=== PATIENT | male | born 1940 | race Caucasian/White ===

== ENCOUNTER → 2016-10-22 | Day surgery (SDC) | payer MEDICARE, OTHER ==
[~2016-10-22] MED LIST: ALPRAZolam 0.25 MG TAB PO PRN; ALPRAZolam 0.5 MG TAB PO PRN; ASPIRIN 325 MG TAB PO STA; ATORVASTATIN 80 MG TAB PO STA; HYDROcodone/APAP 7.5-325MG 1 EACH TAB PO PRN; IOHEXOL 350 MG/ML 100 ML BOTTLE INJ ONE; LIDOCAINE 2% INJ 20 MG/ML (20 ML MDV) ONE; LIDOCAINE 2% INJ 20 MG/ML SQ ONE; MIDAZOLAM 2 MG/2 ML VIAL IV ONE; MIDAZOLAM 2 MG/2 ML VIAL ONE; NITROGLYCERIN SL TABS 0.4 MG TAB SUBLINGUAL PRN; SODIUM CHLORIDE 0.9% 1,000 ML IV ONE; SODIUM CHLORIDE 0.9% 1,000 ML IV SCH; SODIUM CHLORIDE 0.9% 1,000 ML in EMPTY BAG 1 BAG IV ONE; diphenhydrAMINE 50 MG/ML 1 ML VIAL IVP ONE; diphenhydrAMINE 50 MG/ML 1 ML VIAL ONE; fentaNYL (PF) 50 MCG/ML 2 ML AMP IV ONE
[2016-10-22 08:16] VITALS: RESP 18
[2016-10-22 08:44] LABS: Basophils % (A) 1 %; CH 31.5; CHCM 33.5; Eosinophils # (A) 0.1 k/uL (0-0.7); Eosinophils % (A) 2 %; HCT 39.9 % (39.0-53.0); HDW 3.09; HGB 12.8 gm/dL (13.0-17.5); Luc # (Auto) 0.26; Luc % (Auto) 4; Lymphocytes # (A) 0.8 k/uL (1.0-4.8); Lymphocytes % (A) 13 %; MCH 30.4 pg (25.0-35.0); MCHC 32.1 g/dL (31.0-37.0); MCV 94.7 fL (80.0-100.0); Mean Platelet Volume 7.6; Monocytes # (A) 0.6 k/uL (0-1.0); Monocytes % (A) 10 %; Neutrophils # (A) 4.6 k/uL (1.3-7.7); Neutrophils % (A) 71 %; RBC 4.21 m/uL (4.30-5.90); RDW 14.2 % (11.5-15.5); WBC 6.4 k/uL (3.8-10.6); WBC (Perox) 6.78
[2016-10-22 08:48] LABS: Anion Gap 10 mmol/L; Blood Urea Nitrogen 23 mg/dL (9-20); Calcium 9.2 mg/dL (8.4-10.2); Carbon Dioxide 33 mmol/L (22-30); Chloride 94 mmol/L (98-107); Glucose 112 mg/dL (74-99); Non-African American GFR(MDRD) 58 (>60 ml/min/1.73 sqM); Potassium 3.6 mmol/L (3.5-5.1); Sodium 137 mmol/L (137-145)
[2016-10-22 08:53] LABS: INR 1.1 (<1.2); Prothrombin Time 11.4 sec (9.0-12.0)
[2016-10-22] MEDS: BENZOCAINE SPRAY 100 APPLIC/CAN MUCOUS MEM ONE ×3 (09:01→09:10)
--- NOTE | 2016-10-22 09:44 | P.TEE ---
Indications for Procedure(s): Mitral regurgitation. Preoperative Diagnosis: Postoperative Diagnosis: Procedure(s) Performed: Anesthesia: local Description of Procedure(s): Patient was given intravenous sedation with Versed and fentanyl and transesophageal echocardiogram was performed without any complications. Left ventricular chamber is moderately dilated with evidence of global hypokinesia with estimated ejection fraction in the range of 30-35%. Atrium is moderately enlarged right atrium is moderately enlarged. Y morphology is normal and it is structurally normal there is no evidence of flow prolapsed mitral valve. Is evidence of moderate to severe mitral regurgitation which is central in origin is evidence of for reversal of flow in the pulmonary vein. Is no evidence of thrombus in left atrium or atrial appendage. There is a moderate degree of tricuspid regurgitation noted. Intra-atrial septum is intact there is no evidence of PFO by saline contrast study. Descending thoracic aorta is normal. Final impression there is evidence of moderate to severe mitral regurgitation which is central in origin. Is a reversal of flow in the pulmonary vein. Mitral valve is structurally normal suggestive functional mitral regurgitation secondary to dilated cardiomyopathy. There is no evidence of thrombus in left atrium or atrial appendage.
[2016-10-22 12:22] LABS: Site PA
[2016-10-22 12:23] LABS: Site FA
[2016-10-22 12:23] LABS: Site RA
[2016-10-22 13:01] VITALS: TEMP 98.2
[2016-10-22 18:39] VITALS: BP 104/58; PULSE 58
--- NOTE | 2016-10-23 08:47 | CC ---
DATE OF SERVICE: 10/22/2016 PROCEDURE: Right and left heart catheterization and coronary angiography. Performed by Dr. Araceli Leyva. CLINICAL INFORMATION: Mr. Chito Rouse is a 76-year-old gentleman with a chronic persistent atrial fibrillation, hypertension, hypercholesterolemia, known CAD with a previous stenting of RCA and circumflex performed in 2003. Because of increasing symptoms of shortness of breath and known central mitral regurgitation, he was advised transesophageal echo and right and left heart catheterization and brought in for the procedure electively. Risk, benefits, options and rationale were explained to the patient and family. PROCEDURE NOTE: Under local anesthesia and strict aseptic precautions, a 6 Norwegian introducer was placed in the right femoral artery and * Norwegian introducer in the right femoral vein. Using a flow directed balloon tip catheter with the O21 wire, I was able to perform a right heart catheterization. Thermodilution, cardiac output was obtained and saturations were obtained. Subsequently, using standard Sean catheters I performed coronary angiography and a Pigtail catheter was used to check LV pressure, but I did not perform LV gram. The catheters were taken out and the femoral artery sheath was taken out and angiocele device used to secure venostasis. Venous sheath as taken out and manual compression used to secure hemostasis. Patient was sent to the room in a stable condition. CARDIAC CATHETERIZATION FINDINGS: The right atrial pressure was 9 mmHg. Right ventricular pressure was 50/9, pulmonary arterial pressure was 50/17 with a mean of 28. The pulmonary capillary wedge pressure was about 16 with a V-wave of 32. The thermodilution cardiac out was about 5 L and Deanna cardiac output was 4.8 L. The pulmonary arterial saturation was about 64% and femoral arterial saturation was 95%. There was no oxygen stepup. The patient had moderate pulmonary hypertension. The left ventricular end diastolic pressure 18 mmHg and there no gradient across the aortic valve. CORONARY ANGIOGRAPHY FINDINGS: LEFT MAIN CORONARY ARTERY: Short, patent , disease-free vessel that bifurcates into LAD and circumflex. LEFT ANTERIOR DESCENDING CORONARY ARTERY: Good caliber vessel, extends along the anterior wall, gives off a large septal ( ) and a very large diagonal branch, both of which are free of significant disease. The distal one-third of the LAD has mild diffuse disease throughout. No significant disease in the LAD system is noted. LEFT POSTERIOR CIRCUMFLEX CORONARY ARTERY: Nondominant vessel, has a proximal circumflex anterior before widely patent. No significant stenosis. Gives of a left atrial circumflex branch and an AV groove branch. Minor irregularities. No significant disease in the circumflex system. RIGHT CORONARY ARTERY: This is a technically a dominant vessel which was stented before in the midportion. The stented segment is widely patent distally. It bifurcates into a large PDA and PLV, both of which supplies a sizeable amount of myocardium. There is no significant disease in the dominant RCA which is free of any significant disease and the stent segment is widely patent. The branches are free of significant disease. LEFT VENTRICULOGRAM: This was not performed. FINAL IMPRESSION: This patient has moderate pulmonary hypertension. There is no oxygen step up. Thermodilution and fixed cardiac output is about 5 L. He has a right dominant system and the previously stented right coronary artery and circumflex are widely patent without significant obstructive coronary artery disease. RECOMMENDATIONS: I will review of the transesophageal echo information and then make a definite decision. But for now, medical therapy is advised. Patient will be discharged later on today if he remains stable. Moderate conscious sedation was provided for a total duration of nearly 45 minutes using Versed and Benadryl. Patient tolerated the procedure well without complications. ARTEMIO
== END ==
LOC: CATHCVL 07:48
PROVIDERS: ATTEND Internal Medicine Interventional Cardiology
DX: I25.110 Atherosclerotic heart disease of native coronary artery with unstable angina pectoris (principal); I11.0 Hypertensive heart disease with heart failure; I50.42 Chronic combined systolic (congestive) and diastolic (congestive) heart failure; Z87.891 Personal history of nicotine dependence; I27.2 Other secondary pulmonary hypertension; I08.1 Rheumatic disorders of both mitral and tricuspid valves; I51.7 Cardiomegaly; I42.0 Dilated cardiomyopathy; I49.5 Sick sinus syndrome; I48.2 Chronic atrial fibrillation; Z79.01 Long term (current) use of anticoagulants; Z95.5 Presence of coronary angioplasty implant and graft; D50.9 Iron deficiency anemia, unspecified; E78.00 Pure hypercholesterolemia, unspecified; E78.5 Hyperlipidemia, unspecified; Z79.82 Long term (current) use of aspirin; Z79.899 Other long term (current) drug therapy
CPT/HCPCS: 93312; 93320; 93325; 93460; 80048; 85018; 82810; 85025; 85610; C1760; C1769 ×3; C1894 ×2; J2001; J2250; J1200; Q9967; J3010

== ENCOUNTER 2019-08-17 21:33 | Inpatient (IN) | payer MEDICARE, OTHER ==
[2019-08-18 05:36] LABS: HCT 20.2 % (39.0-53.0); MCH 32.7 pg (25.0-35.0); MCHC 34.6 g/dL (31.0-37.0); MCV 94.4 fL (80.0-100.0); Mean Platelet Volume 8.1; Platelet Count 295 k/uL (150-450); RBC 2.14 m/uL (4.30-5.90); RDW 14.8 % (11.5-15.5); WBC 13.3 k/uL (3.8-10.6)
[2019-08-18 05:39] LABS: ALT 16 U/L (4-49); AST 22 U/L (17-59); African American GFR (CKD) >90 (>60 ml/min/1.73 sqM); Albumin 2.7 g/dL (3.5-5.0); Alkaline Phosphatase 38 U/L (38-126); Anion Gap 6 mmol/L; Blood Urea Nitrogen 47 mg/dL (9-20); Carbon Dioxide 27 mmol/L (22-30); Chloride 99 mmol/L (98-107); Glucose 160 mg/dL (74-99); Non-African American GFR(CKD) 79 (>60 ml/min/1.73 sqM); Potassium 3.8 mmol/L (3.5-5.1); Sodium 132 mmol/L (137-145); Total Bilirubin 0.2 mg/dL (0.2-1.3); Total Protein 4.6 g/dL (6.3-8.2)
[2019-08-18 05:42] LABS: INR 3.3 (<1.2); Partial Thromboplastin Time 31.8 sec (22.0-30.0); Prothrombin Time 32.5 sec (9.0-12.0)
[2019-08-18] MEDS ORDERED: ACETAMINOPHEN TAB 325 MG TAB PO PRN (06:42)
--- NOTE | 2019-08-18 08:38 | P.CRDCN ---
History of Present Illness Consult date: 08/18/19 Consult reason: sycope Chief complaint: syncope History of present illness: this is a pleasant 79-year-old gentleman who follows regularly with Dr. Fredo Lyeva in the office. He has a known history of coronary artery disease with multivessel PCI, chronic atrial fibrillation, moderate to severe mitral regurgitation, moderate pulmonary hypertension, hypertension, hyperlipidemia, his most recent cardiac catheterization was performed in October 2016 at which time he underwent a right and left heart catheterization, showed moderate pulmonary hypertension. He was a transfer from [facility], he present ed to the hospital there with this episode of near syncope. He states that he was walking from the bedroom, he takes his Coumadin at 6 PM, felt very dizzy and lightheaded, diaphoretic, and went down to the ground. He does not feel that he lost consciousness at all. He states that he was able to get up off of the ground and make a phone call to EMS. He denies having any chest discomfort but he does state that recently he's been more short of breath than usual and prior to this episode he did noticed himself to be short of breath. He states that when he gets up and walks or goes to the bathroom he has a very hard time breathing, he denies any palpitations. Laboratory data at [facility] has been reviewed, magnesium was 1.7, sodium 138, potassium 4.1, BUN 39, creatinine 1.0, troponin 0.0-7, EKG was performed at [facility], showed atrial fibrillation with a controlled ventricular response. A chest x-ray was also performed there which did not reveal any evidence of acute cardiopulmonary disease. At the time of my examination this morning, patient is complaining of some back discomfort that starts at his neck, goes down to his lower back area. He states that he has a history of rheumatoid arthritis and chronically has back pain. He also has a productive cough of clear sputum. Prior history of smoking.I pressure this morning 105/70 with a heart rate in the 80s, 100% on 2 L of oxygen.White blood cell count 13.3, hemoglobin 7.0, INR 3.3. Stool for occult blood is positive. Sodium 132, potassium 3.8, BUN 47, creatinine 0.9. Troponin 0.015. Patient's hemoglobin on his last admission here in 2017 was 12.8. Past Medical History Past Medical History: Atrial Fibrillation, Asthma, Coronary Artery Disease (CAD), COPD, Hyperlipidemia, Hypertension, Myocardial Infarction ([place]), Osteoarthritis (OA), Prostate Disorder, Renal Disease, Skin Disorder Additional Past Medical History / Comment(s): psoriasis; shortness of breath with any strenuous activity; difficulty swallowing hx of foreign body removal from throat 4 times, "leaky heart valve"; stentsx2, bowel resection 30 years ago Last Myocardial Infarction Date:: 2003 History of Any Multi-Drug Resistant Organisms: None Reported Past Surgical History: Bowel Resection, Heart Catheterization With Stent, Hernia Repair, Orthopedic Surgery Additional Past Surgical History / Comment(s): ORIF of left forearm, portion of stomach removed in 1987 from an ulcer,EGD with dilatation. Bilateral hip replacements. Right Knee Past Anesthesia/Blood Transfusion Reactions: No Reported Reaction Date of Last Stent Placement:: 2003 Past Psychological History: No Psychological Hx Reported Smoking Status: Former smoker Past Alcohol Use History: None Reported Past Drug Use History: None Reported - Past Family History Mother Family Medical History: Coronary Artery Disease (CAD), Osteoarthritis (OA) Father Family Medical History: No Reported History Medications and Allergies Home Medications Medication Instructions Recorded Confirmed Type Aspirin 81 mg PO DAILY 07/31/14 08/18/19 History Baclofen [Lioresal] 10 mg PO BID 07/31/14 08/18/19 History Ferrous Sulfate [Feosol] 65 mg PO BID 07/31/14 08/18/19 History Furosemide [Lasix] 40 mg PO BID 07/31/14 08/18/19 History HYDROcodone/APAP 7.5-325MG [[place] 1 each PO Q6HR PRN 07/31/14 08/18/19 History 7.5-325] Lisinopril [Zestril] 2.5 mg PO HS 07/31/14 08/18/19 History Loratadine [Claritin] 10 mg PO DAILY 07/31/14 08/18/19 History Meclizine [Antivert] 1 tab PO BID PRN 07/31/14 08/18/19 History Metolazone [Zaroxolyn] 2.5 mg PO Q48H 07/31/14 08/18/19 History Nitroglycerin Sl Tabs [Nitrostat] 1 tab SUBLINGUAL ONCE PRN 07/31/14 08/18/19 History Potassium Chloride ER [K-Dur 20] 20 meq PO BID 07/31/14 08/18/19 History Pravastatin Sodium [Pravachol] 40 mg PO HS 07/31/14 08/18/19 History Tamsulosin [Flomax] 0.4 mg PO HS 07/31/14 08/18/19 History Warfarin Sodium [Coumadin] 6 mg PO SUTUTHSA 09/26/15 08/18/19 History Warfarin Sodium [Coumadin] 4 mg PO MOWEFR 10/16/16 08/18/19 History DULoxetine HCL [Cymbalta] 30 mg PO BID 08/18/19 08/18/19 History Gabapentin [Neurontin] 300 mg PO BID 08/18/19 08/18/19 History Hydrocodone/Acetaminophen [[place] 1 tab PO Q6HR PRN 08/18/19 08/18/19 History 7.5-325] Allergies Allergy/AdvReac Type Severity Reaction Status Date / Time metoclopramide HCl Allergy "I would Verified 10/22/16 08:02 [From Reglan] just sit and stare" Penicillins Allergy Rash/Hives Verified 10/22/16 08:02 Physical Exam Vitals: Vital Signs Temp Pulse Resp BP Pulse Ox 08/18/19 04:00 97.5 F L 87 18 105/70 100 08/18/19 01:44 97.3 F L 95 20 122/66 96 Intake and Output 08/17/19 08/18/19 08/18/19 22:59 06:59 14:59 Output Total 350 Balance -350 Output: Urine 350 Other: # Voids 2 # Bowel Movements 1 Weight 87.5 kg PHYSICAL EXAMINATION: GENERAL:79-year-old gentleman in no acute distress at the time of my examination HEENT: Head is atraumatic, normocephalic. Pupils equal, round. Sclera anicteric. Conjunctiva are clear. Mucous membranes of the mouth are moist. Neck is supple. There is no elevated jugular venous pressure.no carotid bruit is heard. HEART EXAMINATION: [Heart S1, S2 irregularly irregular a systolic murmur is heard.] CHEST EXAMINATION:[ Lungs are clear to auscultation and precussion. No chest wall tenderness is noted on palpation or with deep breathing.] ABDOMEN: [ Soft, nontender. Bowel sounds are heard. No organomegaly noted]. EXTREMITIES:[ 2+ peripheral pulses with trace to 1+ evidence of peripheral edema and no calf tenderness noted]. NEUROLOGIC [patient is awake, alert and oriented3.] . Results 08/18/19 05:03 08/18/19 05:03 Cardiac Enzymes 08/18/19 08/18/19 Range/Units 05:03 07:10 AST 22 (17-59) U/L Troponin I 0.015 (0.000-0.034) ng/mL Coagulation 08/18/19 Range/Units 05:03 PT 32.5 H (9.0-12.0) sec APTT 31.8 H (22.0-30.0) sec CBC 08/18/19 Range/Units 05:03 WBC 13.3 H (3.8-10.6) k/uL RBC 2.14 L (4.30-5.90) m/uL Hgb 7.0 L (13.0-17.5) gm/dL Hct 20.2 L (39.0-53.0) % Plt Count 295 (150-450) k/uL Comprehensive Metabolic Panel 08/18/19 Range/Units 05:03 Sodium 132 L (137-145) mmol/L Potassium 3.8 (3.5-5.1) mmol/L Chloride 99 (98-107) mmol/L Carbon Dioxide 27 (22-30) mmol/L BUN 47 H (9-20) mg/dL Creatinine 0.93 (0.66-1.25) mg/dL Glucose 160 H (74-99) mg/dL Calcium 8.0 L (8.4-10.2) mg/dL AST 22 (17-59) U/L ALT 16 (4-49) U/L Alkaline Phosphatase 38 (38-126) U/L Total Protein 4.6 L (6.3-8.2) g/dL Albumin 2.7 L (3.5-5.0) g/dL Current Medications Generic Name Dose Route Start Last Admin Trade Name Freq PRN Reason Stop Dose Admin Acetaminophen 650 mg 08/18/19 06:42 08/18/19 07:03 Tylenol Tab PO 650 mg Q6HR PRN Administration Fever and/ or Mild Pain Intake and Output 08/17/19 08/18/19 08/18/19 22:59 06:59 14:59 Output Total 350 Balance -350 Output: Urine 350 Other: # Voids 2 # Bowel Movements 1 Weight 87.5 kg 08/18/19 05:03 08/18/19 05:03 EKG Interpretations (text) EKG shows atrial fibrillation with a controlled ventricular response Assessment and Plan Plan: assessment and plan #1 near syncope, rule out cardiac causes #2 chronic persistent atrial fibrillation, rate under adequate control, on Coumadin for anticoagulation, INR 3.3. #3 anemia, hemoglobin 7.0, stool for occult blood positive #4 hypertension #5 hyperlipidemia #6 coronary artery disease with history of multivessel PCI #7 moderate to severe mitral regurgitation #8 prior history of smoking Plan We will obtain an echocardiogram with Doppler study. Check orthostatic heart rate and blood pressure every shift. Watch for any tachycardia or bradycardia arrhythmias. Monitor the hemoglobin closely, check iron studies. Hold the Coumadin today. DNP note has been reviewed, I agree with a documented findings and plan of care. Patient was seen and examined.
[2019-08-18] MEDS ORDERED: NITROGLYCERIN SL TABS 0.4 MG TAB SUBLINGUAL PRN (10:12)
[2019-08-18] MEDS ORDERED: SODIUM CHLORIDE 0.9% 1,000 ML IV SCH (10:15)
[2019-08-18] MEDS: BACLOFEN 10 MG TAB PO SCH (10:46)
[2019-08-18] MEDS: HYDROcodone/APAP 7.5-325MG 1 EACH TAB PO PRN ×2 (10:46→18:53)
[2019-08-18] MEDS ORDERED: PHYTONADIONE ORAL 5 MG/5 ML ORAL.SYRG PO STA (10:59)
--- NOTE | 2019-08-18 11:18 | P.HPIM ---
History of Present Illness This is a pleasant 81-year-old male came in after a near syncopal episode found to be secondary to hypovolemia and the low blood pressure. Patient has.stools multiple about 8-10 yesterday and 8-10 today patient has elevated INR today's INR is around 3.3 I believe it was higher than that. Patient is feeling better today patient does have can start failure history with mitral regurgitation patient has EF of around 30-35% patient denied any fever chills patient feels tired doesn't feel well. Patient was started on Protonix. Patient felt that it diaphoretic lightheaded before his near syncope patient didn't actually have a s yncope. Patient had multiple episodes of dark stools along with the some blood in the stools. Patient had another GI bleed in the past and patient's INR is always fluctuating. Because of this reason patient probably would be a good fit candidate for Eliquis in spite of mitral regurgitation. Review of Systems REVIEW OF SYSTEMS: CONSTITUTIONAL: No fever. HEENT: No recent visual problems or hearing problems. Denied any sore throat. CARDIOVASCULAR: No chest pain, orthopnea, PND, no palpitations. PULMONARY: No shortness of breath, no cough, no hemoptysis. GASTROINTESTINAL: No diarrhea, no nausea, no vomiting, no abdominal pain. NEUROLOGICAL: No headaches, no weakness, no numbness. HEMATOLOGICAL: Denies any bleeding or petechiae. GENITOURINARY: Denies any burning micturition, frequency, or urgency. MUSCULOSKELETAL/RHEUMATOLOGICAL: Denies any joint pain, swelling, or any muscle pain. ENDOCRINE: Denies any polyuria or polydipsia. The rest of the 14-point review of systems is negative. Past Medical History Past Medical History: Atrial Fibrillation, Asthma, Coronary Artery Disease (CAD), COPD, Hyperlipidemia, Hypertension, Myocardial Infarction ([place]), Osteoarthritis (OA), Prostate Disorder, Renal Disease, Skin Disorder Additional Past Medical History / Comment(s): psoriasis; shortness of breath with any strenuous activity; difficulty swallowing hx of foreign body removal from throat 4 times, "leaky heart valve"; stentsx2, bowel resection 30 years ago Last Myocardial Infarction Date:: 2003 History of Any Multi-Drug Resistant Organisms: None Reported Past Surgical History: Bowel Resection, Heart Catheterization With Stent, Hernia Repair, Orthopedic Surgery Additional Past Surgical History / Comment(s): ORIF of left forearm, portion of stomach removed in 1987 from an ulcer,EGD with dilatation. Bilateral hip replacements. Right Knee Past Anesthesia/Blood Transfusion Reactions: No Reported Reaction Date of Last Stent Placement:: 2003 Past Psychological History: No Psychological Hx Reported Smoking Status: Former smoker Past Alcohol Use History: None Reported Past Drug Use History: None Reported - Past Family History Mother Family Medical History: Coronary Artery Disease (CAD), Osteoarthritis (OA) Father Family Medical History: No Reported History Medications and Allergies Home Medications Medication Instructions Recorded Confirmed Type Aspirin 81 mg PO DAILY 07/31/14 08/18/19 History Baclofen [Lioresal] 10 mg PO BID@0800,1200 07/31/14 08/18/19 History Ferrous Sulfate [Feosol] 65 mg PO BID 07/31/14 08/18/19 History Furosemide [Lasix] 40 mg PO MOWEFR@1200 07/31/14 08/18/19 History Lisinopril [Zestril] 2.5 mg PO HS 07/31/14 08/18/19 History Loratadine [Claritin] 10 mg PO DAILY 07/31/14 08/18/19 History Meclizine [Antivert] 1 tab PO TID PRN 07/31/14 08/18/19 History Metolazone [Zaroxolyn] 2.5 mg PO SUTUTHSA@1200 07/31/14 08/18/19 History Nitroglycerin Sl Tabs [Nitrostat] 1 tab SUBLINGUAL Q5M PRN 07/31/14 08/18/19 History Potassium Chloride ER [K-Dur 20] 20 meq PO BID 07/31/14 08/18/19 History Pravastatin Sodium [Pravachol] 40 mg PO HS 07/31/14 08/18/19 History Tamsulosin [Flomax] 0.4 mg PO HS 07/31/14 08/18/19 History Warfarin Sodium [Coumadin] 6 mg PO SUTUWETHSA 09/26/15 08/18/19 History Warfarin Sodium [Coumadin] 4 mg PO MOFR 10/16/16 08/18/19 History Cholecalciferol [Vitamin D3 (25 5,000 unit PO DAILY 08/18/19 08/18/19 History Mcg = 1000 Iu)] DULoxetine HCL [Cymbalta] 30 mg PO BID 08/18/19 08/18/19 History Furosemide [Lasix] 40 mg PO DAILY@0800 08/18/19 08/18/19 History Gabapentin [Neurontin] 300 mg PO BID 08/18/19 08/18/19 History Hydrocodone/Acetaminophen [[place] 1 tab PO Q8H PRN 08/18/19 08/18/19 History 7.5-325] Allergies Allergy/AdvReac Type Severity Reaction Status Date / Time metoclopramide HCl Allergy "I would Verified 08/18/19 09:25 [From Reglan] just sit and stare" Penicillins Allergy Rash/Hives Verified 08/18/19 09:25 Physical Exam Vitals: Vital Signs Temp Pulse Resp BP Pulse Ox 08/18/19 04:00 97.5 F L 87 18 105/70 100 08/18/19 01:44 97.3 F L 95 20 122/66 96 Intake and Output 08/17/19 08/18/19 08/18/19 22:59 06:59 14:59 Output Total 350 Balance -350 Output: Urine 350 Other: # Voids 2 # Bowel Movements 1 Weight 87.5 kg PHYSICAL EXAMINATION: GENERAL: The patient is alert and oriented x3, not in any acute distress. Well developed, well nourished. HEENT: Pupils are round and equally reacting to light. EOMI. No scleral icterus. Does have conjunctival pallor. Normocephalic, atraumatic. No pharyngeal erythema. No thyromegaly. CARDIOVASCULAR: S1 and S2 present. No murmurs, rubs, or gallops. PULMONARY: Chest is clear to auscultation, no wheezing or crackles. ABDOMEN: Soft, nontender, nondistended, normoactive bowel sounds. No palpable organomegaly. MUSCULOSKELETAL: No joint swelling or deformity. EXTREMITIES: No cyanosis, clubbing, or pedal edema. NEUROLOGICAL: Gross neurological examination did not reveal any focal deficits. SKIN: No rashes. Results CBC & Chem 7: 08/18/19 05:03 08/18/19 05:03 Labs: Abnormal Lab Results - Last 24 Hours (Table) 08/18/19 08/18/19 08/18/19 Range/Units 05:03 05:03 05:03 WBC 13.3 H (3.8-10.6) k/uL RBC 2.14 L (4.30-5.90) m/uL Hgb 7.0 L (13.0-17.5) gm/dL Hct 20.2 L (39.0-53.0) % PT 32.5 H (9.0-12.0) sec INR 3.3 H (<1.2) APTT 31.8 H (22.0-30.0) sec Sodium 132 L (137-145) mmol/L BUN 47 H (9-20) mg/dL Glucose 160 H (74-99) mg/dL Calcium 8.0 L (8.4-10.2) mg/dL Total Protein 4.6 L (6.3-8.2) g/dL Albumin 2.7 L (3.5-5.0) g/dL Crossmatch 08/18/19 Range/Units 07:10 WBC (3.8-10.6) k/uL RBC (4.30-5.90) m/uL Hgb (13.0-17.5) gm/dL Hct (39.0-53.0) % PT (9.0-12.0) sec INR (<1.2) APTT (22.0-30.0) sec Sodium (137-145) mmol/L BUN (9-20) mg/dL Glucose (74-99) mg/dL Calcium (8.4-10.2) mg/dL Total Protein (6.3-8.2) g/dL Albumin (3.5-5.0) g/dL Crossmatch See Detail Thrombosis Risk Factor Assmnt - Choose All That Apply Each Factor Represents 1 point: Swollen legs (current) Each Risk Factor Represents 3 Points: Age 75 years or older Other congenital or acquired thrombophilia - If yes, enter type in comment: No Thrombosis Risk Factor Assessment Total Risk Factor Score: 4 Thrombosis Risk Factor Assessment Level: Moderate Risk Assessment and Plan Plan: -Acute blood loss anemia from upper GI bleed: Patient's INR is elevated with patient will be given vitamin K, patient will be started on Protonix gastroenterology will evaluate the patient. Patient was transfused 1 unit of PRBC because of her arm heart failure patient was not be started on any IV fluids unless his blood pressure drops -Congestive heart failure chronic systolic dysfunction EF of 30 to that the patient is actually hypovolemic diuretics will be held lisinopril will be held at this time. -Atrial fibrillation patient is presently rate controlled patient appears to proximal A. fib Coumadin is on hold patient has a brother but cannot -Severe mitral regurgitation -Near-syncope secondary to GI bleed -Pressure next and-hyperlipidemia -COPD without any acute exacerbation Coronary artery disease -Hypertension patient is hypotensive and heparin benign prostatic atrophy For above-mentioned chronic medical problems patient will be resumed on appropriate home medications
[2019-08-18] MEDS: GABAPENTIN 300 MG CAP PO SCH ×2 (13:45→20:39)
[2019-08-18 18:15] LABS: % Iron Saturation 28.05 (15.00-50.00)
[2019-08-18 18:22] LABS: Ferritin 32.6 ng/mL (22.0-322.0)
[2019-08-18] MEDS: PANTOPRAZOLE 40 MG/10 ML VIAL IVP SCH ×2 (18:53→20:39)
[2019-08-18] MEDS: DULoxetine HCL 30 MG CAPSULE.DR PO SCH (20:39)
[2019-08-18] MEDS: PRAVASTATIN SODIUM 40 MG TAB PO SCH (20:39)
[2019-08-18] MEDS: TAMSULOSIN 0.4 MG CAP.ER.24H PO SCH (20:39)
[2019-08-18 21:40] LABS: MCH 32.2 pg (25.0-35.0); MCHC 34.1 g/dL (31.0-37.0); MCV 94.4 fL (80.0-100.0); Platelet Count 252 k/uL (150-450); RBC 2.05 m/uL (4.30-5.90); RDW 15.3 % (11.5-15.5); WBC 13.5 k/uL (3.8-10.6)
[2019-08-18 21:42] LABS: HCT 19.3 % (39.0-53.0); HGB 6.6 gm/dL (13.0-17.5)
[2019-08-18 21:43] LABS: INR 2.5 (<1.2); Prothrombin Time 24.3 sec (9.0-12.0)
--- NOTE | 2019-08-19 06:21 | P.CONS ---
History of Present Illness - Reason for Consult Consult date: 08/18/19 Anemia Requesting physician: Tiffanie Reyna - Chief Complaint Syncope - History of Present Illness 81-year-old male who presented to the hospital due to concerns over passing out, he has a history of coronary artery disease, hypertension, hyperlipidemia and atrial fibrillation on anticoagulation therapy the patient reports loss of consciousness but denies hitting his head. The patient was found to be anemic on presentation with a hemoglobin of 7 and a supratherapeutic INR of 3.3. Other laboratory evaluation significant for a WBC of 13.3, bili count 295,000, total bilirubin 0.2, alkaline phosphatase 38, AST 22 and ALTs 16. On stool testing the patient was found to be positive for occult blood. He does take daily aspirin therapy but does not use any other NSAIDs as he is on [place] for pain. He does report dark stool but states that this is chronic secondary to iron therapy. No gross bright red blood per rectum. No abdominal pain reported. No change in bowel habits reported. Previously he underwent upper endoscopies for symptoms of esophageal dysphagia for body and 2015 in 2016 at which time he was found to have a benign-appearing esophageal stricture which was dilated as well as evidence of a partial gastrectomy. On questioning the patient reports a remote history of peptic ulcer disease approximately 30 years ago. . Review of Systems REVIEW OF SYSTEMS: CONSTITUTIONAL: Denies any fevers, chills, weight change or fatigue. CARDIOVASCULAR: Denies any chest pain, palpitations high or low blood pressures, he presented to the hospital for a syncopal episode and has a known history of atrial fibrillation RESPIRATORY: Denies any shortness of breath, hemoptysis or cough. GENITOURINARY: No dysuria or hematuria. MUSCULOSKELETAL: No weakness reported. SKIN: Denies any new rashes or lesions, jaundice or pallor. PSYCHIATRIC: Denies any depression or anxiety. NEUROLOGY: Denies headache, denies any new focal deficits. EARS/NOSE/THROAT: No recent hearing change, congestion, nasal discharge or sore throat. EYES: No pain in eyes, discharge or change in vision. GASTROINTESTINAL: As per HPI. Past Medical History Past Medical History: Atrial Fibrillation, Asthma, Coronary Artery Disease (CAD), COPD, Hyperlipidemia, Hypertension, Myocardial Infarction (RI), Osteoarthritis (OA), Prostate Disorder, Renal Disease, Skin Disorder Additional Past Medical History / Comment(s): psoriasis; shortness of breath with any strenuous activity; difficulty swallowing hx of foreign body removal from throat 4 times, "leaky heart valve"; stentsx2, bowel resection 30 years ago Last Myocardial Infarction Date:: 2003 History of Any Multi-Drug Resistant Organisms: None Reported Past Surgical History: Bowel Resection, Heart Catheterization With Stent, Hernia Repair, Orthopedic Surgery Additional Past Surgical History / Comment(s): ORIF of left forearm, portion of stomach removed in 1987 from an ulcer,EGD with dilatation. Bilateral hip replacements. Right Knee Past Anesthesia/Blood Transfusion Reactions: No Reported Reaction Date of Last Stent Placement:: 2003 Past Psychological History: No Psychological Hx Reported Smoking Status: Former smoker Past Alcohol Use History: None Reported Past Drug Use History: None Reported - Past Family History Mother Family Medical History: Coronary Artery Disease (CAD), Osteoarthritis (OA) Father Family Medical History: No Reported History Medications and Allergies Home Medications Medication Instructions Recorded Confirmed Type Aspirin 81 mg PO DAILY 07/31/14 08/18/19 History Baclofen [Lioresal] 10 mg PO BID@0800,1200 07/31/14 08/18/19 History Ferrous Sulfate [Feosol] 65 mg PO BID 07/31/14 08/18/19 History Furosemide [Lasix] 40 mg PO MOWEFR@1200 07/31/14 08/18/19 History Lisinopril [Zestril] 2.5 mg PO HS 07/31/14 08/18/19 History Loratadine [Claritin] 10 mg PO DAILY 07/31/14 08/18/19 History Meclizine [Antivert] 1 tab PO TID PRN 07/31/14 08/18/19 History Metolazone [Zaroxolyn] 2.5 mg PO SUTUTHSA@1200 07/31/14 08/18/19 History Nitroglycerin Sl Tabs [Nitrostat] 1 tab SUBLINGUAL Q5M PRN 07/31/14 08/18/19 History Potassium Chloride ER [K-Dur 20] 20 meq PO BID 07/31/14 08/18/19 History Pravastatin Sodium [Pravachol] 40 mg PO 07/31/14 08/18/19 History Tamsulosin [Flomax] 0.4 mg PO 07/31/14 08/18/19 History Warfarin Sodium [Coumadin] 6 mg PO SUTUWETHSA 09/26/15 08/18/19 History Warfarin Sodium [Coumadin] 4 mg PO MOFR 10/16/16 08/18/19 History Cholecalciferol [Vitamin D3 (25 5,000 unit PO DAILY 08/18/19 08/18/19 History Mcg = 1000 Iu)] DULoxetine HCL [Cymbalta] 30 mg PO BID 08/18/19 08/18/19 History Furosemide [Lasix] 40 mg PO DAILY@0800 08/18/19 08/18/19 History Gabapentin [Neurontin] 300 mg PO BID 08/18/19 08/18/19 History Hydrocodone/Acetaminophen [[place] 1 tab PO Q8H PRN 08/18/19 08/18/19 History 7.5-325] Allergies Allergy/AdvReac Type Severity Reaction Status Date / Time metoclopramide HCl Allergy "I would Verified 08/18/19 09:25 [From Reglan] just sit and stare" Penicillins Allergy Rash/Hives Verified 08/18/19 09:25 Physical Exam Vitals: Vital Signs Temp Pulse Pulse Resp BP BP Pulse Ox 08/18/19 13:02 98.2 F 85 118/72 98 08/18/19 12:32 97.9 F 84 119/62 99 08/18/19 12:22 98.5 F 84 121/59 99 08/18/19 08:00 96.4 F L 91 111/56 100 08/18/19 04:00 97.5 F L 87 18 105/70 100 08/18/19 01:44 97.3 F L 95 20 122/66 96 Intake and Output 08/18/19 08/18/19 08/18/19 06:59 14:59 22:59 Intake Total 417 Output Total 350 600 Balance -350 -183 Intake: Oral 417 Blood Product 0 Rc As-1 Unit 0 [id number] Output: Urine 350 600 Other: # Voids 2 1 # Bowel Movements 1 1 Weight 87.5 kg On physical examination, patient appears comfortable in no apparent distress. HEAD: Normocephalic, atraumatic. EYES: No scleral icterus. No conjunctival injection. MOUTH: No lesions, tongue midline. NECK: Trachea midline, no gross abnormalities. CHEST: Decreased air entry in all lung galdamez. HEART: S1-S2 appreciated. ABDOMEN: Soft. Bowel sounds are positive. No organomegaly. No guarding or rigidity. EXTREMITIES: No pedal edema. SKIN: No rashes, no jaundice. NEUROLOGIC: Alert and oriented x3. No focal deficits. Results CBC & Chem 7: 08/18/19 21:19 08/18/19 05:03 Labs: Abnormal Lab Results - Last 24 Hours (Table) 08/18/19 08/18/19 08/18/19 Range/Units 05:03 05:03 05:03 WBC 13.3 H (3.8-10.6) k/uL RBC 2.14 L (4.30-5.90) m/uL Hgb 7.0 L (13.0-17.5) gm/dL Hct 20.2 L (39.0-53.0) % PT 32.5 H (9.0-12.0) sec INR 3.3 H (<1.2) APTT 31.8 H (22.0-30.0) sec Sodium 132 L (137-145) mmol/L BUN 47 H (9-20) mg/dL Glucose 160 H (74-99) mg/dL Calcium 8.0 L (8.4-10.2) mg/dL Total Protein 4.6 L (6.3-8.2) g/dL Albumin 2.7 L (3.5-5.0) g/dL Crossmatch 08/18/19 Range/Units 07:10 WBC (3.8-10.6) k/uL RBC (4.30-5.90) m/uL Hgb (13.0-17.5) gm/dL Hct (39.0-53.0) % PT (9.0-12.0) sec INR (<1.2) APTT (22.0-30.0) sec Sodium (137-145) mmol/L BUN (9-20) mg/dL Glucose (74-99) mg/dL Calcium (8.4-10.2) mg/dL Total Protein (6.3-8.2) g/dL Albumin (3.5-5.0) g/dL Crossmatch See Detail Assessment and Plan (1) Normocytic anemia Narrative/Plan: 79-year-old male with multiple medical comorbidities presenting to the hospital due to a syncopal episode and found to have a normocytic anemia. Patient denies any signs or symptoms of GI bleeding but does report chronic dark bowel movements secondary to iron therapy. He is on aspirin daily but denies any other NSAID use as he uses [place] for pain. He has a remote history of peptic ulcer disease 30 years ago. Last EGD performed and 2016 with findings of a benign-appearing distal esophageal stricture which was stretched and evidence of prior partial gastric resection. Patient has had colonoscopic evaluation in the past but is not interested at this time. He denies any bright red blood per rectum, nausea, vomiting or hematemesis. INR was supratherapeutic at 3.3 on presentation. Unclear etiology of symptoms with positive stool testing for blood possibly secondary to iron supplementation, plan is for EGD to rule out peptic ulcer disease, esophagitis/gastritis, AVM or other upper GI tract etiology of anemia. Current Visit: Yes Status: Acute Code(s): D64.9 - ANEMIA, UNSPECIFIED SNOMED Code(s): 086517352 (2) History of peptic ulcer disease Current Visit: Yes Status: Acute Code(s): Z87.11 - PERSONAL HISTORY OF PEPTIC ULCER DISEASE SNOMED Code(s): 493945419 Plan: Supportive care Clear liquid diet Nothing by mouth after midnight Continue Protonix therapy Vitamin K and fresh frozen plasma given for supratherapeutic INR Plan for EGD for further evaluation The patient is not interested and colonoscopic evaluation at this time Consider computed tomography scan of the abdomen without contrast to rule out retroperitoneal bleed if patient continues to have persistent falling of hemoglobin Anemia laboratory evaluation ordered Thank you for allowing us to participate in the care of the patient we will continue to follow
[2019-08-19 07:32] LABS: Basophils % (A) 0 %; Eosinophils # (A) 0.1 k/uL (0-0.7); Eosinophils % (A) 1 %; HCT 21.4 % (39.0-53.0); HGB 7.3 gm/dL (13.0-17.5); Lymphocytes # (A) 0.9 k/uL (1.0-4.8); Lymphocytes % (A) 9 %; MCH 32.1 pg (25.0-35.0); MCHC 34.1 g/dL (31.0-37.0); MCV 94.3 fL (80.0-100.0); Mean Platelet Volume 7.5; Monocytes # (A) 0.7 k/uL (0-1.0); Monocytes % (A) 7 %; Neutrophils # (A) 8.4 k/uL (1.3-7.7); Neutrophils % (A) 82 %; Platelet Count 210 k/uL (150-450); RBC 2.27 m/uL (4.30-5.90); RDW 15.3 % (11.5-15.5); WBC 10.3 k/uL (3.8-10.6)
[2019-08-19 07:39] LABS: Albumin 2.7 g/dL (3.5-5.0); Calcium 7.7 mg/dL (8.4-10.2); Potassium 3.7 mmol/L (3.5-5.1); Total Bilirubin 0.5 mg/dL (0.2-1.3); Total Protein 4.7 g/dL (6.3-8.2)
[2019-08-19 07:40] LABS: Reticulocyte % 6.4 % (0.5-2.0)
[2019-08-19 07:48] LABS: INR 1.9 (<1.2); Prothrombin Time 18.3 sec (9.0-12.0)
[2019-08-19] MEDS: HYDROcodone/APAP 7.5-325MG 1 EACH TAB PO PRN ×2 (09:42→17:14)
[2019-08-19] MEDS: BACLOFEN 10 MG TAB PO SCH ×2 (09:44→12:17)
[2019-08-19] MEDS: DULoxetine HCL 30 MG CAPSULE.DR PO SCH ×2 (09:44→19:52)
[2019-08-19] MEDS: GABAPENTIN 300 MG CAP PO SCH ×2 (09:44→19:52)
[2019-08-19] MEDS: ASPIRIN 81 MG PO SCH (09:44)
[2019-08-19] MEDS: PANTOPRAZOLE 40 MG/10 ML VIAL IVP SCH ×2 (09:54→19:52)
--- NOTE | 2019-08-19 11:00 | ECHOF ---
Referral Reason:syncope MEASUREMENTS -------- HEIGHT: 170.2 cm WEIGHT: 87.1 kg BP: 105/70 RVIDd: 4.5 cm (< 3.3) IVSd: 1.2 cm (0.6 - 1.1) LVIDd: 4.6 cm (3.9 - 5.3) LVPWd: 1.6 cm (0.6 - 1.1) IVSs: 1.4 cm LVIDs: 3.7 cm LVPWs: 1.3 cm LAESV Index (A-L): 56.13 ml/m Ao Diam: 3.3 cm (2.0 - 3.7) AV Cusp: 2.1 cm (1.5 - 2.6) AV maxP.85 mmHg AV meanP.59 mmHg AR PHT: 536 ms RAP: 5.00 mmHg RVSP: 53.23 mmHg FINDINGS -------- Atrial fibrillation. This was a technically adequate study. The left ventricular size is normal. There is mild concentric left ventricular hypertrophy. Overa ll left ventricular systolic function is mild-moderately impaired with, an EF between 40 - 45 %. Mi tral Doppler inflow pattern suggests diastolic filling abnormality {E/E'}. The right ventricle is moderately enlarged. LA is severely dilated >40 ml/m2 The right atrium is moderately enlarged. Interatrial and interventricular septum intact. There is mild aortic regurgitation. There is mild aortic stenosis present. Peak/mean gradient acr oss the Aortic Valve is 31.85mmHg / 15.59mmHg. The mitral valve leaflets are mild to moderately thickened. Moderate mitral annular calcification present. Moderate mitral regurgitation is present. Moderate to severe tricuspid regurgitation present. There is moderate to severe pulmonary hypertens ion. The right ventricular systolic pressure, as measured by Doppler, is 53.23mmHg. There is no pulmonic regurgitation present. The aortic root size is normal. IVC Not well visulized. There is no pericardial effusion. CONCLUSIONS -------- 1. Atrial fibrillation. 2. This was a technically adequate study. 3. The left ventricular size is normal. 4. There is mild concentric left ventricular hypertrophy. 5. Overall left ventricular systolic function is mild-moderately impaired with, an EF between 40 - 45 %. 6. Mitral Doppler inflow pattern suggest diastolic filling abnormality {E/E'}. 7. The right ventricle is moderately enlarged. 8. LA is severely dilated >40 ml/m2 9. The right atrium is moderately enlarged. 10. Interatrial and interventricular septum intact. 11. There is mild aortic regurgitation. 12. There is mild aortic stenosis present. 13. Peak/mean gradient across the Aortic Valve is 31.85mmHg / 15.59mmHg. 14. The mitral valve leaflets are mild to moderately thickened. 15. Moderate mitral annular calcification present. 16. Moderate mitral regurgitation is present. 17. Moderate to severe tricuspid regurgitation present. 18. There is moderate to severe pulmonary hypertension. 19. The right ventricular systolic pressure, as measured by Doppler, is 53.23mmHg. 20. There is no pulmonic regurgitation present. 21. The aortic root size is normal. 22. IVC Not well visulized. 23. There is no pericardial effusion. COLLAR FUSER: Ita Diop RDCS
[2019-08-19] MEDS ORDERED: SODIUM CHLORIDE 0.9% 500 ML IV ONE (11:13)
[2019-08-19] MEDS ORDERED: LIDOCAINE 1% INJ 10MG/ML (20 ML MDV) ONE (11:14)
[2019-08-19] MEDS ORDERED: PROPOFOL 10 MG/ML 20 ML VIAL IV ONE (11:14)
--- NOTE | 2019-08-19 11:32 | P.PCN ---
Date of Procedure: 08/19/19 Procedure(s) Performed: BRIEF HISTORY: Patient is a 71-year-old, pleasant, white male admitted hospital with severe symptomatic anemia with hemoglobin of 6.3 g/dL. he needed 1 unit of the transition. He was noted to have dark colored stool and Hemoccult-positive stool. He has history of congestive heart failure and A. fib and Coumadin. INR today is 1.9. Has prior history of partial gastrectomy for peptic ulcer disease. PROCEDURE PERFORMED: Esophagogastroduodenoscopy with cautery. PREOPERATIVE DIAGNOSIS:. Symptomatic anemia and black stool. IV sedation per anesthesia. PROCEDURE: After informed consent was obtained, the patient was brought into the endoscopy unit. IV sedation was administered by Anesthesia under continuous monitoring. Initially the Olympus GIF-140 video endoscope was inserted into the mouth. Esophagus intubated without any difficulty. It was gradually advanced into the stomach . There was evidence of Billroth II gastrectomy noted. At the anastomosis there were scattered angiectasia noted which were cauterized using a gold probe. The scope was advanced into the afferent and efferent loops that appeared normal. The scope at this time was withdrawn to the gastric remnant, adequately insufflated with air, and upon careful examination, mucosa of the body, cardia and the fundus appeared normal. Small gastric polyp identified. The scope was then withdrawn into the esophagus. The GE junction was located at 39 cm from the incisors. The esophagus appeared normal. There were no erosions or ulcerations seen and the patient tolerated the procedure well. IMPRESSION: 1. Angiectasia along the Billroth II anastomosis, status post cautery as described. 2. Afferent and efferent loops appeared normal. 3. Small gastric polyps RECOMMENDATIONS: The findings of this examination were discussed with the patient. Continue Protonix 40 mg daily.. Monitor CBC on a daily basis. Resume anticoagulation in 2-3 days. Diet will be advanced as tolerated.
--- NOTE | 2019-08-19 11:33 | P.PN ---
Subjective Progress Note Date: 08/19/19 This is a pleasant 79-year-old gentleman who follows regularly with Dr. Fredo Leyva in the office. He has a known history of coronary artery disease with multivessel PCI, chronic atrial fibrillation, moderate to severe mitral regurgitation, moderate pulmonary hypertension, hypertension, hyperlipidemia, his most recent cardiac catheterization was performed in October 2016 at which time he underwent a right and left heart catheterization, showed moderate pulmonary hypertension. He was a transfer from [facility], he presented to the hospital there with this episode of near syncope. He states that he was walking from the bedroom, he takes his Coumadin at 6 PM, felt very dizzy and lightheaded, diaphoretic, and went down to the ground. He does not feel that he lost consciousness at all. He states that he was able to get up off of the ground and make a phone call to EMS. He denies having any chest discomfort but he does state that recently he's been more short of breath than usual and prior to this episode he did noticed himself to be short of breath. He states that when he gets up and walks or goes to the bathroom he has a very hard time breathing, he denies any palpitations. Laboratory data at [facility] has been reviewed, magnesium was 1.7, sodium 138, potassium 4.1, BUN 39, creatinine 1.0, troponin 0.0-7, EKG was performed at [facility], showed atrial fibrillation with a controlled ventricular response. A chest x- ray was also performed there which did not reveal any evidence of acute cardiopulmonary disease. At the time of my examination this morning, patient is complaining of some back discomfort that starts at his neck, goes down to his lower back area. He states that he has a history of rheumatoid arthritis and chronically has back pain. He also has a productive cough of clear sputum. Prior history of smoking.I pressure this morning 105/70 with a heart rate in the 80s, 100% on 2 L of oxygen.White blood cell count 13.3, hemoglobin 7.0, INR 3.3. Stool for occult blood is positive. Sodium 132, potassium 3.8, BUN 47, creatinine 0.9. Troponin 0.015. Patient's hemoglobin on his last admission here in 2016 was 12.8. 08/19/2019 Patient seen and examined this morning, scheduled today to undergo an EGD. Blood pressure 120/60 with a heart rate in the 80s, 99% on 2 L of oxygen. Lab data from today, white blood cell count 10.3, hemoglobin 7.3, platelet count 210. INR 1.9, sodium 133, potassium 3.7, BUN 37, creatinine 0.9. Objective - Vital Signs Vital signs: Vital Signs Temp 97.9 F 08/19/19 03:10 Pulse 85 08/19/19 03:10 Resp 16 08/19/19 03:10 BP 119/65 08/19/19 03:10 Pulse Ox 99 08/19/19 03:10 Intake & Output 08/18/19 08/19/19 08/19/19 18:59 06:59 18:59 Intake Total 1204 618 Output Total 600 400 Balance 604 618 -400 Weight 88.4 kg Intake: Oral 894 Blood Product 310 618 Ffp 24 Cpd Unit 308 [id number] Rc As-1 Unit 310 [id number] Rc As-3 Unit 310 [id number] Output: Urine 600 400 Other: # Voids 2 2 # Bowel Movements 2 - Exam PHYSICAL EXAMINATION: GENERAL:79-year-old gentleman in no acute distress at the time of my examination HEENT: Head is atraumatic, normocephalic. Pupils equal, round. Sclera anicteric. Conjunctiva are clear. Mucous membranes of the mouth are moist. Neck is supple. There is no elevated jugular venous pressure.no carotid bruit is heard. HEART EXAMINATION: [Heart S1, S2 irregularly irregular a systolic murmur is heard.] CHEST EXAMINATION:[ Lungs are clear to auscultation and precussion. No chest wall tenderness is noted on palpation or with deep breathing.] ABDOMEN: [ Soft, nontender. Bowel sounds are heard. No organomegaly noted]. EXTREMITIES:[ 2+ peripheral pulses with trace to 1+ evidence of peripheral edema and no calf tenderness noted]. NEUROLOGIC [patient is awake, alert and oriented3.] - Labs CBC & Chem 7: 08/19/19 06:54 08/19/19 06:54 Labs: Abnormal Lab Results - Last 24 Hours (Table) 08/18/19 08/18/19 08/18/19 Range/Units 07:10 21:19 21:19 WBC 13.5 H (3.8-10.6) k/uL RBC 2.05 L (4.30-5.90) m/uL Hgb 6.6 L* (13.0-17.5) gm/dL Hct 19.3 L* (39.0-53.0) % Neutrophils # (1.3-7.7) k/uL Lymphocytes # (1.0-4.8) k/uL Retic Count (0.5-2.0) % PT 24.3 H (9.0-12.0) sec INR 2.5 H (<1.2) Sodium (137-145) mmol/L Chloride (98-107) mmol/L Carbon Dioxide (22-30) mmol/L BUN (9-20) mg/dL Glucose (74-99) mg/dL Calcium (8.4-10.2) mg/dL Alkaline Phosphatase (38-126) U/L Total Protein (6.3-8.2) g/dL Albumin (3.5-5.0) g/dL Crossmatch See Detail 08/19/19 08/19/19 08/19/19 Range/Units 06:54 06:54 06:54 WBC (3.8-10.6) k/uL RBC 2.27 L (4.30-5.90) m/uL Hgb 7.3 L (13.0-17.5) gm/dL Hct 21.4 L (39.0-53.0) % Neutrophils # 8.4 H (1.3-7.7) k/uL Lymphocytes # 0.9 L (1.0-4.8) k/uL Retic Count (0.5-2.0) % PT 18.3 H (9.0-12.0) sec INR 1.9 H (<1.2) Sodium 133 L (137-145) mmol/L Chloride 96 L (98-107) mmol/L Carbon Dioxide 32 H (22-30) mmol/L BUN 37 H (9-20) mg/dL Glucose 128 H (74-99) mg/dL Calcium 7.7 L (8.4-10.2) mg/dL Alkaline Phosphatase 35 L (38-126) U/L Total Protein 4.7 L (6.3-8.2) g/dL Albumin 2.7 L (3.5-5.0) g/dL Crossmatch 08/19/19 Range/Units 06:54 WBC (3.8-10.6) k/uL RBC (4.30-5.90) m/uL Hgb (13.0-17.5) gm/dL Hct (39.0-53.0) % Neutrophils # (1.3-7.7) k/uL Lymphocytes # (1.0-4.8) k/uL Retic Count 6.4 H (0.5-2.0) % PT (9.0-12.0) sec INR (<1.2) Sodium (137-145) mmol/L Chloride (98-107) mmol/L Carbon Dioxide (22-30) mmol/L BUN (9-20) mg/dL Glucose (74-99) mg/dL Calcium (8.4-10.2) mg/dL Alkaline Phosphatase (38-126) U/L Total Protein (6.3-8.2) g/dL Albumin (3.5-5.0) g/dL Crossmatch Assessment and Plan Plan: assessment and plan #1 near syncope, likely secondary to blood loss anemia #2 chronic persistent atrial fibrillation, rate under adequate control, on Coumadin for anticoagulation, #3 anemia, hemoglobin 7.3, stool for occult blood positive, melena stools #4 hypertension #5 hyperlipidemia #6 coronary artery disease with history of multivessel PCI #7 moderate to severe mitral regurgitation #8 prior history of smoking Plan Patient is scheduled today to undergo an EGD. Echocardiogram with Doppler study revealed an ejection fraction of 40-45%. Moderate mitral regurgitation moderate to severe tricuspid regurg, moderate to severe pulmonary hypertension. Hemodynamically stable. DNP note has been reviewed, I agree with a documented findings and plan of care. Patient was seen and examined.
--- NOTE | 2019-08-19 11:43 | P.PN ---
Subjective Patient is admitted for near syncope secondary to upper GI bleed. Patient will undergo upper GI endoscopy PT and OT will evaluate the patient today patient probably will be discharged tomorrow depending on PT and OT evaluation. Patient is off Coumadin. Depending on the upper GI endoscopy findings patient will be resumed on Eliquis and discontinue Coumadin altogether. Patient doesn't have any clinical evidence of any more GI bleed. Constitutional: Denied any fatigue denied any fever. Cardio vascular: denied any chest pain, palpitations Gastrointestinal denied any nausea vomiting Pulmonary: Denied any shortness of breath cough Neurologic denied any new focal deficits All inpatient medications were reviewed and appropriate changes in these medications as dictated in the interval history and assessment and plan. Objective - Vital Signs Vital signs: Vital Signs Temp 98.0 F 08/19/19 08:00 Pulse 78 08/19/19 08:00 Resp 16 08/19/19 08:00 BP 118/57 08/19/19 08:00 Pulse Ox 97 08/19/19 08:00 Intake & Output 08/18/19 08/19/19 08/19/19 18:59 06:59 18:59 Intake Total 1204 618 200 Output Total 600 400 Balance 604 618 -200 Weight 88.4 kg Intake: IV 200 Oral 894 Blood Product 310 618 Ffp 24 Cpd Unit 308 [id number] Rc As-1 Unit 310 [id number] Rc As-3 Unit 310 [id number] Output: Urine 600 400 Other: # Voids 2 2 # Bowel Movements 2 - Exam PHYSICAL EXAMINATION: GENERAL: The patient is alert and oriented x3, not in any acute distress. Well developed, well nourished. HEENT: Pupils are round and equally reacting to light. EOMI. No scleral icterus. Does have conjunctival pallor. Normocephalic, atraumatic. No pharyngeal erythema. No thyromegaly. CARDIOVASCULAR: S1 and S2 present. No murmurs, rubs, or gallops. PULMONARY: Chest is clear to auscultation, no wheezing or crackles. ABDOMEN: Soft, nontender, nondistended, normoactive bowel sounds. No palpable organomegaly. MUSCULOSKELETAL: No joint swelling or deformity. EXTREMITIES: No cyanosis, clubbing, or pedal edema. NEUROLOGICAL: Gross neurological examination did not reveal any focal deficits. SKIN: No rashes. - Labs CBC & Chem 7: 08/19/19 06:54 08/19/19 06:54 Labs: Abnormal Lab Results - Last 24 Hours (Table) 08/18/19 08/18/19 08/18/19 Range/Units 07:10 21:19 21:19 WBC 13.5 H (3.8-10.6) k/uL RBC 2.05 L (4.30-5.90) m/uL Hgb 6.6 L* (13.0-17.5) gm/dL Hct 19.3 L* (39.0-53.0) % Neutrophils # (1.3-7.7) k/uL Lymphocytes # (1.0-4.8) k/uL Retic Count (0.5-2.0) % PT 24.3 H (9.0-12.0) sec INR 2.5 H (<1.2) Sodium (137-145) mmol/L Chloride (98-107) mmol/L Carbon Dioxide (22-30) mmol/L BUN (9-20) mg/dL Glucose (74-99) mg/dL Calcium (8.4-10.2) mg/dL Alkaline Phosphatase (38-126) U/L Total Protein (6.3-8.2) g/dL Albumin (3.5-5.0) g/dL Crossmatch See Detail 08/19/19 08/19/19 08/19/19 Range/Units 06:54 06:54 06:54 WBC (3.8-10.6) k/uL RBC 2.27 L (4.30-5.90) m/uL Hgb 7.3 L (13.0-17.5) gm/dL Hct 21.4 L (39.0-53.0) % Neutrophils # 8.4 H (1.3-7.7) k/uL Lymphocytes # 0.9 L (1.0-4.8) k/uL Retic Count (0.5-2.0) % PT 18.3 H (9.0-12.0) sec INR 1.9 H (<1.2) Sodium 133 L (137-145) mmol/L Chloride 96 L (98-107) mmol/L Carbon Dioxide 32 H (22-30) mmol/L BUN 37 H (9-20) mg/dL Glucose 128 H (74-99) mg/dL Calcium 7.7 L (8.4-10.2) mg/dL Alkaline Phosphatase 35 L (38-126) U/L Total Protein 4.7 L (6.3-8.2) g/dL Albumin 2.7 L (3.5-5.0) g/dL Crossmatch 08/19/19 Range/Units 06:54 WBC (3.8-10.6) k/uL RBC (4.30-5.90) m/uL Hgb (13.0-17.5) gm/dL Hct (39.0-53.0) % Neutrophils # (1.3-7.7) k/uL Lymphocytes # (1.0-4.8) k/uL Retic Count 6.4 H (0.5-2.0) % PT (9.0-12.0) sec INR (<1.2) Sodium (137-145) mmol/L Chloride (98-107) mmol/L Carbon Dioxide (22-30) mmol/L BUN (9-20) mg/dL Glucose (74-99) mg/dL Calcium (8.4-10.2) mg/dL Alkaline Phosphatase (38-126) U/L Total Protein (6.3-8.2) g/dL Albumin (3.5-5.0) g/dL Crossmatch Assessment and Plan Plan: -Acute blood loss anemia from upper GI bleed: Patient's INR is elevated with pat ient will be given vitamin K patient's INR today is 1.9 patient franklin Protonix gastroenterology will evaluate the patient. Patient was transfused 1 unit of PRBC because of her arm . Patient will undergo upper GI endoscopy today. -Congestive heart failure chronic systolic dysfunction EF of 30 to that the patient is actually hypovolemic diuretics will be held lisinopril will be held at this time. -Atrial fibrillation patient is presently rate controlled patient appears to proximal A. fib Coumadin is on hold patient has a brother but cannot -Severe mitral regurgitation -Near-syncope secondary to GI bleed -Pressure next and-hyperlipidemia -COPD without any acute exacerbation Coronary artery disease -Hypertension patient is hypotensive and heparin benign prostatic atrophy For above-mentioned chronic medical problems patient will be resumed on appropriate home medications
[2019-08-19 15:55] LABS: % Iron Saturation 13.77 (15.00-50.00); Folate, Serum 12.7 ng/mL
[2019-08-19] MEDS: PRAVASTATIN SODIUM 40 MG TAB PO SCH (19:52)
[2019-08-19] MEDS: TAMSULOSIN 0.4 MG CAP.ER.24H PO SCH (19:52)
[2019-08-20] MEDS: HYDROcodone/APAP 7.5-325MG 1 EACH TAB PO PRN ×3 (02:16→21:30)
[2019-08-20] MEDS: DULoxetine HCL 30 MG CAPSULE.DR PO SCH ×2 (09:15→21:28)
[2019-08-20] MEDS: BACLOFEN 10 MG TAB PO SCH ×2 (09:15→11:56)
[2019-08-20] MEDS: ASPIRIN 81 MG PO SCH (09:15)
[2019-08-20] MEDS: GABAPENTIN 300 MG CAP PO SCH ×2 (09:15→21:29)
[2019-08-20] MEDS: PANTOPRAZOLE 40 MG/10 ML VIAL IVP SCH (09:15)
[2019-08-20 09:19] LABS: Anisocytosis Slight; Basophils % (A) 1 %; Eosinophils # (A) 0.2 k/uL (0-0.7); Eosinophils % (A) 3 %; Lymphocytes # (A) 0.7 k/uL (1.0-4.8); Lymphocytes % (A) 10 %; MCH 30.5 pg (25.0-35.0); MCHC 32.1 g/dL (31.0-37.0); MCV 95.1 fL (80.0-100.0); Mean Platelet Volume 7.9; Monocytes # (A) 0.5 k/uL (0-1.0); Monocytes % (A) 7 %; Neutrophils # (A) 5.3 k/uL (1.3-7.7); Neutrophils % (A) 77 %; Platelet Count 185 k/uL (150-450); RBC 2.02 m/uL (4.30-5.90); RDW 16.2 % (11.5-15.5); WBC 6.9 k/uL (3.8-10.6)
[2019-08-20 09:40] LABS: HCT 19.2 % (39.0-53.0); HGB 6.2 gm/dL (13.0-17.5)
[2019-08-20 09:45] LABS: Prothrombin Time 10.8 sec (9.0-12.0)
[2019-08-20 10:08] LABS: Albumin 2.6 g/dL (3.5-5.0); Calcium 7.8 mg/dL (8.4-10.2); Potassium 3.5 mmol/L (3.5-5.1); Total Bilirubin 0.4 mg/dL (0.2-1.3); Total Protein 4.5 g/dL (6.3-8.2)
--- NOTE | 2019-08-20 13:44 | P.PN ---
Subjective Patient is admitted for near syncope secondary to upper GI bleed. Patient will undergo upper GI endoscopy PT and OT will evaluate the patient today patient probably will be discharged tomorrow depending on PT and OT evaluation. Patient is off Coumadin. Depending on the upper GI endoscopy findings patient will be resumed on Eliquis and discontinue Coumadin altogether. Patient doesn't have any clinical evidence of any more GI bleed. 08/20/2019 Patient doesn't have any clinical GI bleed but hemoglobin dropped, patient will receive 1 unit of PRBC transfusionpatient underwent the endoscopy which showed and U Tran TCS along the Billroth II anastomosis and patient was cauterized. And there was some small polyps in the stomach. Patient will be resumed on anticoagulation tomorrow if the continues to be stable without any more GI bleed patient will be started on Eliquis history of Coumadin Constitutional: Denied any fatigue denied any fever. Cardio vascular: denied any chest pain, palpitations Gastrointestinal denied any nausea vomiting Pulmonary: Denied any shortness of breath cough Neurologic denied any new focal deficits All inpatient medications were reviewed and appropriate changes in these medications as dictated in the interval history and assessment and plan. Objective - Vital Signs Vital signs: Vital Signs Temp 98 F 08/20/19 12:20 Pulse 72 08/20/19 12:20 Resp 18 08/20/19 12:20 BP 124/58 08/20/19 12:20 Pulse Ox 98 08/20/19 12:20 Intake & Output 08/19/19 08/20/19 08/20/19 18:59 06:59 18:59 Intake Total 857 777 Output Total 780 1200 Balance 77 -1200 777 Intake: IV 200 Oral 657 777 Blood Product 0 Rc As-1 Unit 0 [id number] Output: Urine 780 1200 Other: # Voids 2 2 - Exam PHYSICAL EXAMINATION: GENERAL: The patient is alert and oriented x3, not in any acute distress. Well developed, well nourished. HEENT: Pupils are round and equally reacting to light. EOMI. No scleral icterus. Does have conjunctival pallor. Normocephalic, atraumatic. No pharyngeal erythema. No thyromegaly. CARDIOVASCULAR: S1 and S2 present. No murmurs, rubs, or gallops. PULMONARY: Chest is clear to auscultation, no wheezing or crackles. ABDOMEN: Soft, nontender, nondistended, normoactive bowel sounds. No palpable organomegaly. MUSCULOSKELETAL: No joint swelling or deformity. EXTREMITIES: No cyanosis, clubbing, or pedal edema. NEUROLOGICAL: Gross neurological examination did not reveal any focal deficits. SKIN: No rashes. - Labs CBC & Chem 7: 08/20/19 08:55 08/20/19 08:54 Labs: Abnormal Lab Results - Last 24 Hours (Table) 08/18/19 08/19/19 08/20/19 Range/Units 07:10 06:54 08:54 RBC (4.30-5.90) m/uL Hgb (13.0-17.5) gm/dL Hct (39.0-53.0) % RDW (11.5-15.5) % Lymphocytes # (1.0-4.8) k/uL Sodium 133 L (137-145) mmol/L Chloride 96 L (98-107) mmol/L Carbon Dioxide 31 H (22-30) mmol/L BUN 25 H (9-20) mg/dL Glucose 170 H (74-99) mg/dL Calcium 7.8 L (8.4-10.2) mg/dL Iron 42 L (65-175) ug/dL % Saturation 13.77 L (15.00-50.00) Total Protein 4.5 L (6.3-8.2) g/dL Albumin 2.6 L (3.5-5.0) g/dL Vitamin B12 160.0 L (200.0-944.0) pg/mL Crossmatch See Detail 08/20/19 Range/Units 08:55 RBC 2.02 L (4.30-5.90) m/uL Hgb 6.2 L* (13.0-17.5) gm/dL Hct 19.2 L* (39.0-53.0) % RDW 16.2 H (11.5-15.5) % Lymphocytes # 0.7 L (1.0-4.8) k/uL Sodium (137-145) mmol/L Chloride (98-107) mmol/L Carbon Dioxide (22-30) mmol/L BUN (9-20) mg/dL Glucose (74-99) mg/dL Calcium (8.4-10.2) mg/dL Iron (65-175) ug/dL % Saturation (15.00-50.00) Total Protein (6.3-8.2) g/dL Albumin (3.5-5.0) g/dL Vitamin B12 (200.0-944.0) pg/mL Crossmatch Assessment and Plan Plan: -Acute blood loss anemia from upper GI bleed: Patient's INR is elevated with patient will be given vitamin K patient's INR today is 1.9 patient franklin Protonix patient underwent upper GI endoscopy. Patient's hemoglobin dropped today will receive 1 more unit of transfusion although patient doesn't have any clinical GI bleed this drop is from his previous bleeding will be started on anti- correlation tomorrow -Congestive heart failure chronic systolic dysfunction EF of 30 to that the patient is actually hypovolemic diuretics will be held lisinopril will be held at this time. -Atrial fibrillation patient is presently rate controlled patient appears to proximal A. fib Coumadin is on hold -Severe mitral regurgitation -Near-syncope secondary to GI bleed -Pressure next and-hyperlipidemia -COPD without any acute exacerbation Coronary artery disease -Hypertension patient is hypotensive and heparin benign prostatic atrophy For above-mentioned chronic medical problems patient will be resumed on appropriate home medications
--- NOTE | 2019-08-20 13:46 | P.PN ---
Subjective Progress Note Date: 08/20/19 The patient is a 79-year-old male who follows in the office with Dr. SONA Leyva. 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 The patient states he tolerated the procedure relatively well, however he does have some abdominal discomfort at the time of my examination. He also reports some fatigue, which is likely attributed to his anemia. He denies any chest pain, chest pressure, palpitations, dizziness, or lightheadedness. GENERAL: Well-appearing, well-nourished and in no acute distress. NECK: Supple without JVD or thyromegaly. LUNGS: Breath sounds clear to auscultation bilaterally. Respiration equal and unlabored. No wheezes, rales or rhonchi. HEART: Irregular heart rhythm. Soft systolic murmur. No rubs or gallops. S1 and S2 heard. EXTREMITIES: Normal range of motion. No clubbing or cyanosis. Peripheral pulses intact and strong. Mild +1 lower extremity pitting edema. VITALS: Temp 98.3 Fahrenheit, pulse 68, respiratory rate 18, blood pressure 120/55, 98% on 2 L LABS: WBC 6.9, hemoglobin 6.2, hematocrit 19.2, INR 1.0, sodium 133, potassium 3.5, BUN 25, creatinine 1.0 ASSESSMENT: #1 near syncope, likely related to anemia #2 acute blood loss anemia #3 chronic persistent atrial fibrillation, rate controlled #3 hypertension #4 hyperlipidemia #5 coronary artery disease #6 mitral regurgitation, moderate to severe PLAN: Patient will be discharged on Eliquis 5 mg twice a day, as he was having a hard time maintaining therapeutic INR on warfarin. This will restart 2-3 days after cauterization. Continue all other cardiac medications. Objective - Vital Signs Vital signs: Vital Signs Temp 98 F 08/20/19 12:20 Pulse 72 08/20/19 12:20 Resp 18 08/20/19 12:20 BP 124/58 08/20/19 12:20 Pulse Ox 98 08/20/19 12:20 Intake & Output 08/19/19 08/20/19 08/20/19 18:59 06:59 18:59 Intake Total 857 777 Output Total 780 1200 Balance 77 -1200 777 Intake: IV 200 Oral 657 777 Blood Product 0 Rc As-1 Unit 0 [id number] Output: Urine 780 1200 Other: # Voids 2 2 - Labs CBC & Chem 7: 08/20/19 08:55 08/20/19 08:54 Labs: Abnormal Lab Results - Last 24 Hours (Table) 08/18/19 08/19/19 08/20/19 Range/Units 07:10 06:54 08:54 RBC (4.30-5.90) m/uL Hgb (13.0-17.5) gm/dL Hct (39.0-53.0) % RDW (11.5-15.5) % Lymphocytes # (1.0-4.8) k/uL Sodium 133 L (137-145) mmol/L Chloride 96 L (98-107) mmol/L Carbon Dioxide 31 H (22-30) mmol/L BUN 25 H (9-20) mg/dL Glucose 170 H (74-99) mg/dL Calcium 7.8 L (8.4-10.2) mg/dL Iron 42 L (65-175) ug/dL % Saturation 13.77 L (15.00-50.00) Total Protein 4.5 L (6.3-8.2) g/dL Albumin 2.6 L (3.5-5.0) g/dL Vitamin B12 160.0 L (200.0-944.0) pg/mL Crossmatch See Detail 08/20/19 Range/Units 08:55 RBC 2.02 L (4.30-5.90) m/uL Hgb 6.2 L* (13.0-17.5) gm/dL Hct 19.2 L* (39.0-53.0) % RDW 16.2 H (11.5-15.5) % Lymphocytes # 0.7 L (1.0-4.8) k/uL Sodium (137-145) mmol/L Chloride (98-107) mmol/L Carbon Dioxide (22-30) mmol/L BUN (9-20) mg/dL Glucose (74-99) mg/dL Calcium (8.4-10.2) mg/dL Iron (65-175) ug/dL % Saturation (15.00-50.00) Total Protein (6.3-8.2) g/dL Albumin (3.5-5.0) g/dL Vitamin B12 (200.0-944.0) pg/mL Crossmatch
--- NOTE | 2019-08-20 13:47 | PN ---
PROGRESS NOTE DATE OF DICTATION: August 20, 2019 Patient is a 79-year-old pleasant white male admitted to hospital with severe symptomatic anemia and dark-colored stools. Has history of atrial fibrillation on Coumadin which has been on hold. 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 The patient complained of some abdominal pain following the procedure, but this morning he is feeling better on a regular diet tolerating well. No further episodes of bleeding. No black tarry stools. PHYSICAL EXAMINATION: Blood pressure is 130/55, temperature 98.3. HEENT examination unremarkable. Conjunctivae pink. Sclerae anicteric. Oral cavity no lesions. NECK: No JVD or lymph node enlargement. CHEST was clear to auscultation. HEART: Regular rate and rhythm. ABDOMEN: Soft, bowel sounds are positive. No organomegaly. EXTREMITIES: No pedal edema. SKIN no rashes. NEURO: He is alert and oriented x3. No focal deficits. LABS: Labs from today are still pending. Labs from yesterday hemoglobin 7.3 g/dL. INR was 1.9 yesterday. IMPRESSION: 1. Severe symptomatic anemia with a hemoglobin of 6.5 requiring one unit of blood transfusion, status post EGD yesterday that showed scattered angioectasia at the anastomosis and cauterized using a Gold probe. The patient had no further episodes of black tarry stools. Repeat CBC from today still pending. 2. Atrial fibrillation on Coumadin currently on hold. 3. History of congestive heart failure. RECOMMENDATIONS: 1. Continue with Protonix 40 mg daily. 2. Await labs from today. 3. Monitor CBC on a daily basis. 4. Continue to hold off on the Coumadin for now. 5. We will follow with you closely. Thank you for this consultation. MMODL / IJN: [id number] /
[2019-08-20] MEDS: TAMSULOSIN 0.4 MG CAP.ER.24H PO SCH (21:28)
[2019-08-20] MEDS: PANTOPRAZOLE 40 MG TABLET PO SCH (21:28)
[2019-08-20] MEDS: PRAVASTATIN SODIUM 40 MG TAB PO SCH (21:28)
[2019-08-21] MEDS: DULoxetine HCL 30 MG CAPSULE.DR PO SCH ×2 (07:34→21:06)
[2019-08-21] MEDS: GABAPENTIN 300 MG CAP PO SCH ×2 (07:34→21:06)
[2019-08-21] MEDS: PANTOPRAZOLE 40 MG TABLET PO SCH ×2 (07:34→21:06)
[2019-08-21] MEDS: ASPIRIN 81 MG PO SCH (07:35)
[2019-08-21] MEDS: BACLOFEN 10 MG TAB PO SCH ×2 (07:35→10:57)
[2019-08-21] MEDS: HYDROcodone/APAP 7.5-325MG 1 EACH TAB PO PRN ×2 (07:36→15:15)
[2019-08-21 07:56] LABS: Anisocytosis Slight; HCT 23.3 % (39.0-53.0); HGB 7.5 gm/dL (13.0-17.5); MCH 31.1 pg (25.0-35.0); MCHC 32.3 g/dL (31.0-37.0); MCV 96.3 fL (80.0-100.0); Mean Platelet Volume 7.5; Platelet Count 196 k/uL (150-450); RBC 2.42 m/uL (4.30-5.90); WBC 7.5 k/uL (3.8-10.6)
[2019-08-21 08:05] LABS: African American GFR (CKD) >90 (>60 ml/min/1.73 sqM); Anion Gap 3 mmol/L; Blood Urea Nitrogen 20 mg/dL (9-20); Calcium 7.9 mg/dL (8.4-10.2); Carbon Dioxide 33 mmol/L (22-30); Chloride 98 mmol/L (98-107); Glucose 114 mg/dL (74-99); Non-African American GFR(CKD) 83 (>60 ml/min/1.73 sqM); Sodium 134 mmol/L (137-145)
[2019-08-21 08:57] VITALS: RESP 16
--- NOTE | 2019-08-21 12:29 | P.PN ---
Subjective Progress Note Date: 08/21/19 The patient is a 79-year-old male who follows in the office with Dr. SONA Leyva. He is status post cauterization for angiectasia along the Billroth II anastomosis. The patient states he tolerated the procedure relatively well, however he does have some abdominal discomfort postoperatively. 08/20/2019: He is resting comfortably in bed. He reports mild abdominal pain. He also reports some fatigue, which is likely attributed to his anemia. He denies any chest pain, chest pressure, palpitations, dizziness, or lightheadedness. Temp 98.3 Fahrenheit, pulse 68, respiratory rate 18, blood pressure 120/55, 98% on 2 L. WBC 6.9, hemoglobin 6.2, hematocrit 19.2, INR 1.0, sodium 133, potassium 3.5, BUN 25, creatinine 1.0. 08/21/2019: The patient is currently resting comfortably in bed. He continues to report some CT and weakness. He did receive 1 unit of packed red blood cells yesterda y. He denies chest pain, chest pressure, palpitations, dizziness, or lightheadedness. Blood pressure 102/55, heart rate 68, respiratory rate 16, temperature 98.2 Fahrenheit, 93% on room air.WBC 7.5, hemoglobin 7.5, hematocrit 23 3, platelet 196, sodium 134, potassium 4.0, BUN 20, creatinine 0.86 GENERAL: Well-appearing, well-nourished and in no acute distress. NECK: Supple without JVD or thyromegaly. LUNGS: Breath sounds clear to auscultation bilaterally. Respiration equal and unlabored. No wheezes, rales or rhonchi. HEART: Irregular heart rhythm. Soft systolic murmur. No rubs or gallops. S1 and S2 heard. EXTREMITIES: Normal range of motion. No clubbing or cyanosis. Peripheral pulses intact and strong. Mild +1 lower extremity pitting edema. ASSESSMENT: #1 near syncope, likely related to anemia #2 acute blood loss anemia #3 chronic persistent atrial fibrillation, rate controlled #3 hypertension #4 hyperlipidemia #5 coronary artery disease #6 mitral regurgitation, moderate to severe PLAN: Patient will be discharged on Eliquis 5 mg twice a day, as he was having a hard time maintaining therapeutic INR on warfarin. Patient will start anticoagula tion based on GIs recommendations. Continue all other cardiac medications. Patient will follow-up in the office in 2 weeks. No further recommendations at this time. Objective - Vital Signs Vital signs: Vital Signs Temp 98.2 F 08/21/19 08:00 Pulse 68 08/21/19 08:00 Resp 16 08/21/19 08:00 BP 102/55 08/21/19 08:00 Pulse Ox 93 L 08/21/19 08:00 Intake & Output 08/20/19 08/21/19 08/21/19 18:59 06:59 18:59 Intake Total 1207 180 Output Total 400 1200 500 Balance 807 -1020 -500 Weight 90.2 kg Intake: Oral 897 180 Blood Product 310 Rc As-1 Unit 310 [id number] Output: Urine 400 1200 500 Other: Voiding Method Urinal Urinal # Voids 0 2 - Labs CBC & Chem 7: 08/21/19 07:14 08/21/19 07:14 Labs: Abnormal Lab Results - Last 24 Hours (Table) 08/18/19 08/21/19 08/21/19 Range/Units 07:10 07:14 07:14 RBC 2.42 L (4.30-5.90) m/uL Hgb 7.5 L (13.0-17.5) gm/dL Hct 23.3 L (39.0-53.0) % RDW 16.0 H (11.5-15.5) % Sodium 134 L (137-145) mmol/L Carbon Dioxide 33 H (22-30) mmol/L Glucose 114 H (74-99) mg/dL Calcium 7.9 L (8.4-10.2) mg/dL Crossmatch See Detail
--- NOTE | 2019-08-21 13:09 | P.PN ---
Subjective Patient is admitted for near syncope secondary to upper GI bleed. Patient will undergo upper GI endoscopy PT and OT will evaluate the patient today patient probably will be discharged tomorrow depending on PT and OT evaluation. Patient is off Coumadin. Depending on the upper GI endoscopy findings patient will be resumed on Eliquis and discontinue Coumadin altogether. Patient doesn't have any clinical evidence of any more GI bleed. 08/20/2019 Patient doesn't have any clinical GI bleed but hemoglobin dropped, patient will receive 1 unit of PRBC transfusionpatient underwent the endoscopy which showed and U Tran TCS along the Billroth II anastomosis and patient was cauterized. And there was some small polyps in the stomach. Patient will be resumed on anticoagulation tomorrow if the continues to be stable without any more GI bleed patient will be started on Eliquis history of Coumadin 08/21/2019 Patient was comparing of's will be shortness of breath to the nurses although she he denied any shortness of breath to me. Patient's saturations are low normal a lot of a chest x-ray patient does have history of can start failure his diuretic therapy is being held because of hypotension. We will obtain a chest x-ray which shows pulmonary edema patient was started on Lasix on clinical exam patient doesn't have any crackles, no JVD. will be resumed on anticoagulation and will be monitored. Patient was started on Eliquis patient had improved ejection fraction to 45% as compared to 30-35% in the past Constitutional: Denied any fatigue denied any fever. Cardio vascular: denied any chest pain, palpitations Gastrointestinal denied any nausea vomiting Pulmonary: Denied any shortness of breath cough Neurologic denied any new focal deficits All inpatient medications were reviewed and appropriate changes in these medi cations as dictated in the interval history and assessment and plan. Objective - Vital Signs Vital signs: Vital Signs Temp 98.2 F 08/21/19 08:00 Pulse 68 08/21/19 08:00 Resp 16 08/21/19 08:00 BP 102/55 08/21/19 08:00 Pulse Ox 93 L 08/21/19 08:00 Intake & Output 08/20/19 08/21/19 08/21/19 18:59 06:59 18:59 Intake Total 1207 180 Output Total 400 1200 500 Balance 807 -1020 -500 Weight 90.2 kg Intake: Oral 897 180 Blood Product 310 Rc As-1 Unit 310 [id number] Output: Urine 400 1200 500 Other: Voiding Method Urinal Urinal # Voids 0 2 - Exam PHYSICAL EXAMINATION: GENERAL: The patient is alert and oriented x3, not in any acute distress. Well developed, well nourished. HEENT: Pupils are round and equally reacting to light. EOMI. No scleral icterus. Does have conjunctival pallor. Normocephalic, atraumatic. No pharyngeal erythema. No thyromegaly. CARDIOVASCULAR: S1 and S2 present. No murmurs, rubs, or gallops. PULMONARY: Chest is clear to auscultation, no wheezing or crackles. ABDOMEN: Soft, nontender, nondistended, normoactive bowel sounds. No palpable organomegaly. MUSCULOSKELETAL: No joint swelling or deformity. EXTREMITIES: No cyanosis, clubbing, or pedal edema. NEUROLOGICAL: Gross neurological examination did not reveal any focal deficits. SKIN: No rashes. - Labs CBC & Chem 7: 08/21/19 07:14 08/21/19 07:14 Labs: Abnormal Lab Results - Last 24 Hours (Table) 08/18/19 08/21/19 08/21/19 Range/Units 07:10 07:14 07:14 RBC 2.42 L (4.30-5.90) m/uL Hgb 7.5 L (13.0-17.5) gm/dL Hct 23.3 L (39.0-53.0) % RDW 16.0 H (11.5-15.5) % Sodium 134 L (137-145) mmol/L Carbon Dioxide 33 H (22-30) mmol/L Glucose 114 H (74-99) mg/dL Calcium 7.9 L (8.4-10.2) mg/dL Crossmatch See Detail Assessment and Plan Plan: -Acute blood loss anemia from upper GI bleed: There multiple GI bleeds with Coumadin and fluctuating INR because of which patient that is being switched Eliquis no more GI bleed patient and have a bowel movement -Congestive heart failure chronic systolic dysfunction EF of metabolic 45%. Patient probably started having pulmonary edema will obtain a chest x-ray if it shows pulmonary edema patient was started on low-dose of Lasix blood pressure is borderline and is a 90 systolic. -Atrial fibrillation patient is presently rate controlled patient appears to proximal A. fib, patient will be started on Eliquis -Severe mitral regurgitation -Near-syncope secondary to GI bleed -Pressure -hyperlipidemia -COPD without any acute exacerbation Coronary artery disease -Hypertension patient is hypotensive and heparin benign prostatic atrophy For above-mentioned chronic medical problems patient will be resumed on appropriate home medications
--- NOTE | 2019-08-21 13:23 | XR ---
EXAMINATION TYPE: XR chest 1V DATE OF EXAM: 08/21/2019 HISTORY: r/o CHF. REFERENCE: Previous study dated 06/20/2009. FINDINGS: Heart size upper limits of normal. The lungs are clear. Pleural spaces are clear. IMPRESSION: NO ACUTE INTRATHORACIC DISEASE.
--- NOTE | 2019-08-21 15:12 | PN ---
PROGRESS NOTE DATE OF SERVICE: 08/21/2019 The patient is a 79-year-old pleasant white male admitted to the hospital with acute GI bleed. He had black tarry stools. 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 He has no further episodes of bleeding. He complains of some shortness of breath today. Coumadin has been discontinued and he was started on Eliquis today. PHYSICAL EXAMINATION: He appears comfortable. No apparent distress. Vital signs are stable. Blood pressure is 102/55, pulse rate 80, temperature 98.2. HEENT examination unremarkable. Conjunctivae pink. Sclerae anicteric. Oral cavity no lesions. NECK: No JVD or lymph node enlargement. CHEST: Clear to auscultation. HEART: Regular rate and rhythm. ABDOMEN: Soft, slightly distended. Bowel sounds are positive. No organomegaly. EXTREMITIES: No pedal edema. SKIN: No rashes. NEUROLOGIC: Alert and oriented x3. No focal deficits. LABS: From yesterday hemoglobin was 6.2. He received one unit of blood transfusion, today it is 7.5. So far during this hospitalization he received a total of 3 units of PRBC transfusion. ASSESSMENT: 1. Severe symptomatic anemia with a hemoglobin of 6.5 requiring one unit of blood transfusion, status post EGD yesterday that showed scattered angioectasia at the anastomosis and cauterized using a Gold probe. The patient had no further episodes of black tarry stools. 2. History of atrial fibrillation. Was on Coumadin which is currently discontinued. He is being started on Eliquis today. 3. Prior history of partial gastrectomy for prior history of peptic ulcer disease. RECOMMENDATIONS: 1. Continue with Protonix 40 mg twice daily. 2. Monitor CBC on a daily basis. 3. Continue with Eliquis that was started today. 4. Will follow with you closely. Thank you for this consultation. MMODL / IJN: [id number] /
[2019-08-21] MEDS: APIXABAN 5 MG TAB PO SCH (21:06)
[2019-08-21] MEDS: TAMSULOSIN 0.4 MG CAP.ER.24H PO SCH (21:06)
[2019-08-21] MEDS: PRAVASTATIN SODIUM 40 MG TAB PO SCH (21:06)
[2019-08-22] MEDS: HYDROcodone/APAP 7.5-325MG 1 EACH TAB PO PRN ×2 (00:26→07:54)
[2019-08-22 07:39] VITALS: BP 113/69; PULSE 53; TEMP 98.1
[2019-08-22] MEDS: BACLOFEN 10 MG TAB PO SCH (07:48)
[2019-08-22] MEDS: ASPIRIN 81 MG PO SCH (07:48)
[2019-08-22] MEDS: GABAPENTIN 300 MG CAP PO SCH (07:48)
[2019-08-22] MEDS: DULoxetine HCL 30 MG CAPSULE.DR PO SCH (07:48)
[2019-08-22] MEDS: APIXABAN 5 MG TAB PO SCH (07:48)
[2019-08-22] MEDS: PANTOPRAZOLE 40 MG TABLET PO SCH (07:48)
[2019-08-22 09:47] LABS: Anisocytosis Slight; HCT 24.6 % (39.0-53.0); HGB 8.4 gm/dL (13.0-17.5); MCH 32.2 pg (25.0-35.0); MCV 94.8 fL (80.0-100.0); Mean Platelet Volume 8.5; Platelet Count 200 k/uL (150-450); Poikilocytosis Slight; RBC 2.59 m/uL (4.30-5.90); RDW 16.3 % (11.5-15.5); WBC 6.5 k/uL (3.8-10.6)
--- NOTE | 2019-08-23 09:15 | P.DS ---
Providers Date of admission: 08/18/19 00:55 Expected date of discharge: 08/23/19 Attending physician: Tiffanie Reyna Consults: 08/18/19 06:38 Consult Physician Stat Consulting Provider: Jay Miller Consult Reason/Comments: gi bleed Do you want consulting provider notified?: Yes 08/18/19 06:40 Consult Physician Stat Consulting Provider: Damaso King Consult Reason/Comments: afib, syncopal episode Do you want consulting provider notified?: Yes Primary care physician: [facility] Course: Final Diagnosis -Acute blood loss anemia from upper GI bleed -Congestive heart failure chronic systolic dysfunction -Atrial fibrillation patient is presently rate controlled patient appears to proximal A. fib -Severe mitral regurgitation -Near-syncope secondary to GI bleed -Hypertension -hyperlipidemia -COPD without any acute exacerbation -Coronary artery disease -History of benign prostatic hypertrophy Discharge disposition Patient is being discharged in a stable condition with guarded prognosis to . Patient will follow-up with Kristine CHOUDHARY in the outpatient setting upon discharge. Patient will also follow-up with Dr. Fredo Leyva along with GI. Patient is to continue with protonix until follow-up. Patient was initiated on Eliquis. Patient was also provided a prescription for Senokot for constipation. Total time taken is 35 minutes. History of present illness This is a 79-year-old male who was recently admitted with a syncopal episode and GI bleed and was transferred from [facility] and is being closely monitored. Patient underwent EGD and colonoscopy showing angiectasia along with Billroth II anastomosis with cautery, and some small gastric polyps. No further bleeding noted. Patient did receive 3 units of PRBCs along with 1 unit of plasma during hospitalization current hemoglobin is 8.4. Patient was on Coumadin which was discontinued and was initiated on Eliquis and will continue at this time. Patient will follow-up with cardiology along with GI in the outpatient setting. Patient was seen and evaluated by PT/OT and is been independent in gait and will be returning home upon discharge. Patient does have residential home care as needed. Currently no reports of chest pain, shortness of breath, or palpitations. Patient is afebrile. No reports of nausea or vomiting and patient is tolerating diet. Patient will be going home today. On exam vital signs are stable. Temp is 98.1F, pulse is 53, respirations are 16, blood pressure is 113/69, oxygen saturation is 98% on room air. Cardio S1, S2 are present. Respiratory system shows diminished breath sounds at the bases with no wheezing or rhonchi noted. Abdomen is soft and nontender. Nervous system shows no focal deficits. Please refer to medication reconciliation sheet for a list of medications. Patient Condition at Discharge: Stable Plan - Discharge Summary Discharge Rx Participant: No New Discharge Prescriptions: New Apixaban [Eliquis] 5 mg PO BID #60 tab Pantoprazole [Protonix] 40 mg PO BID 30 Days #60 tablet.dr Segura [Senokot] 8.6 mg PO BID PRN #20 tablet PRN Reason: Constipation Continue Furosemide [Lasix] 40 mg PO MOWEFR@1200 Ferrous Sulfate [Iron (65 MG Elemental)] 65 mg PO BID Nitroglycerin Sl Tabs [Nitrostat] 1 tab SUBLINGUAL Q5M PRN PRN Reason: Chest Pain Loratadine [Claritin] 10 mg PO DAILY Baclofen [Lioresal] 10 mg PO BID@0800,1200 Aspirin 81 mg PO DAILY Tamsulosin [Flomax] 0.4 mg PO HS Pravastatin Sodium [Pravachol] 40 mg PO HS Meclizine [Antivert] 1 tab PO TID PRN PRN Reason: DIZZINESS Gabapentin [Neurontin] 300 mg PO BID Hydrocodone/Acetaminophen [[place] 7.5-325] 1 tab PO Q8H PRN PRN Reason: Pain DULoxetine HCL [Cymbalta] 30 mg PO BID Cholecalciferol [Vitamin D3 (25 Mcg = 1000 Iu)] 5,000 unit PO DAILY Discontinued Lisinopril [Zestril] 2.5 mg PO HS Metolazone [Zaroxolyn] 2.5 mg PO SUTUTHSA@1200 Potassium Chloride ER [K-Dur 20] 20 meq PO BID Warfarin Sodium [Coumadin] 6 mg PO SUTUWETHSA Warfarin Sodium [Coumadin] 4 mg PO MOFR Furosemide [Lasix] 40 mg PO DAILY@0800 Discharge Medication List Aspirin 81 mg PO DAILY 07/31/14 [History] Baclofen [Lioresal] 10 mg PO BID@0800,1200 07/31/14 [History] Ferrous Sulfate [Iron (65 MG Elemental)] 65 mg PO BID 07/31/14 [History] Furosemide [Lasix] 40 mg PO MOWEFR@1200 07/31/14 [History] Loratadine [Claritin] 10 mg PO DAILY 07/31/14 [History] Meclizine [Antivert] 1 tab PO TID PRN 07/31/14 [History] Nitroglycerin Sl Tabs [Nitrostat] 1 tab SUBLINGUAL Q5M PRN 07/31/14 [History] Pravastatin Sodium [Pravachol] 40 mg PO HS 07/31/14 [History] Tamsulosin [Flomax] 0.4 mg PO HS 07/31/14 [History] Cholecalciferol [Vitamin D3 (25 Mcg = 1000 Iu)] 5,000 unit PO DAILY 08/18/19 [History] DULoxetine HCL [Cymbalta] 30 mg PO BID 08/18/19 [History] Gabapentin [Neurontin] 300 mg PO BID 08/18/19 [History] Hydrocodone/Acetaminophen [[place] 7.5-325] 1 tab PO Q8H PRN 08/18/19 [History] Apixaban [Eliquis] 5 mg PO BID #60 tab 08/19/19 [Rx] Pantoprazole [Protonix] 40 mg PO BID 30 Days #60 tablet. 08/22/19 [Rx] Sennosides [Senokot] 8.6 mg PO BID PRN #20 tablet 08/22/19 [Rx] Follow up Appointment(s)/Referral(s): Jacob Leyva MD [STAFF PHYSICIAN] - 09/05/19 2:30 pm Milena Robbins MD [STAFF PHYSICIAN] - 09/22/19 12:30 pm (Appointment set at ord office Address: [address] [place] [address] ) Kristine Mo PAC [Primary Care Provider] - 08/26/19 8:30 am [facility] [NON-STAFF] - 1 Week Ambulatory/Diagnostic Orders: Complete Blood Count w/diff [LAB.AMB] Time Frame: 2 Days, Location: None Selected Patient Instructions/Handouts: Gastrointestinal Bleeding (DC) Activity/Diet/Wound Care/Special Instructions: Activity Limited until follow-up Continue current diet Follow-up with primary care provider upon discharge Repeat labs in 2-3 days Follow-up with GI in the outpatient setting in 2-3 weeks Continue with home care Patient also follow-up with cardiology in the outpatient setting to 3 weeks Discharge Disposition: HOME WITH HOME HEALTH SERVICES
== END 2019-08-22 12:00 | disposition home health service (06) | DRG 378 ==
LOC: 3SCARD 08-18 00:55 → 4SSUR 08-20 19:59
PROVIDERS: ADMIT Internal Medicine; ATTEND Internal Medicine
PROC: 0W3P8ZZ Control Bleeding in Gastrointestinal Tract, Via Natural or Artificial Opening Endoscopic (ICD-10-PCS; principal; 2019-08-18)
PROC: 30233N1 Transfusion of Nonautologous Red Blood Cells into Peripheral Vein, Percutaneous Approach (ICD-10-PCS; 2019-08-18)
PROC: 30233K1 Transfusion of Nonautologous Frozen Plasma into Peripheral Vein, Percutaneous Approach (ICD-10-PCS; 2019-08-18)
DX: K31.811 Angiodysplasia of stomach and duodenum with bleeding (principal); D62 Acute posthemorrhagic anemia; I50.22 Chronic systolic (congestive) heart failure; I48.19 Other persistent atrial fibrillation; I27.20 Pulmonary hypertension, unspecified; I95.9 Hypotension, unspecified; I11.0 Hypertensive heart disease with heart failure; E86.1 Hypovolemia; E78.5 Hyperlipidemia, unspecified; J44.9 Chronic obstructive pulmonary disease, unspecified; M06.9 Rheumatoid arthritis, unspecified; Z11.59 Encounter for screening for other viral diseases; K31.7 Polyp of stomach and duodenum; I34.0 Nonrheumatic mitral (valve) insufficiency; N40.0 Benign prostatic hyperplasia without lower urinary tract symptoms; I25.10 Atherosclerotic heart disease of native coronary artery without angina pectoris; I25.2 Old myocardial infarction; M54.9 Dorsalgia, unspecified; G89.29 Other chronic pain; M19.90 Unspecified osteoarthritis, unspecified site; L40.9 Psoriasis, unspecified; R79.1 Abnormal coagulation profile; Z79.82 Long term (current) use of aspirin; Z79.01 Long term (current) use of anticoagulants; Z79.899 Other long term (current) drug therapy; Z87.11 Personal history of peptic ulcer disease; Z95.5 Presence of coronary angioplasty implant and graft; Z90.3 Acquired absence of stomach [part of]; Z98.890 Other specified postprocedural states; Z96.643 Presence of artificial hip joint, bilateral; Z87.891 Personal history of nicotine dependence; Z88.0 Allergy status to penicillin; Z88.8 Allergy status to other drugs, medicaments and biological substances; Z82.49 Family history of ischemic heart disease and other diseases of the circulatory system; Z82.61 Family history of arthritis; Z87.448 Personal history of other diseases of urinary system
CPT/HCPCS: 43270; 71045; 80048; 80053; 82272; 82607; 82728; 82746; 83540; 83550; 84484; 85025; 85027; 85045; 85610; 85730; 86850; 86900; 86901; 86920; 93306

== ENCOUNTER 2022-05-28 01:08 | Inpatient (IN) | payer MEDICARE, OTHER ==
--- NOTE | 2022-05-28 01:31 | ED ---
Extremity Problem HPI - General Chief complaint: Extremity Problem,Nontraumatic Stated complaint: transfer/CHF Time Seen by Provider: 05/28/22 01:09 Source: patient, RN notes reviewed Mode of arrival: EMS Limitations: no limitations - History of Present Illness Initial comments: This is an 82-year-old male who presents to the emergency department for david ateral lower extremity swelling. He presents as a transfer from [facility]. They transferred him for concerns of a CHF exacerbation and right lower extremity cellulitis. His mortgage sales manager, Dr. Leyva, is located here, prompting the transfer. Patient states that he has had swelling to the bilateral lower extremities over the last 1.5 days. He does have a history of CHF and wears compression stockings. He also takes furosemide daily. The swelling is worse than it has been in a very long time. He does have a wound to his right nova, which he states was from accidentally cutting it with his fingernail a couple of days ago. [place] started him on Vancomycin for this injury due to concerns for a developing cellulitis. He has minor associated shortness of breath but denies any chest pain. Shortness of breath is worse with exertion and lying flat. Denies any coughing or congestion. Denies any fevers, chills, sore throat, cough, chest pain, palpitations, abdomi nal pain, nausea, vomiting, diarrhea, back pain, or headaches. MD Complaint: extremity pain, extremity swelling Onset/Timin -: days(s) Location: bilateral lower extremity - Related Data Home Medications Medication Instructions Recorded Confirmed Aspirin 81 mg PO DAILY 07/31/14 08/18/19 Baclofen [Lioresal] 10 mg PO BID@0800,1200 07/31/14 08/18/19 Ferrous Sulfate [Iron (65 MG 65 mg PO BID 07/31/14 08/18/19 Elemental)] Furosemide [Lasix] 40 mg PO MOWEFR@1200 07/31/14 08/18/19 Loratadine [Claritin] 10 mg PO DAILY 07/31/14 08/18/19 Meclizine [Antivert] 1 tab PO TID PRN 07/31/14 08/18/19 Nitroglycerin Sl Tabs [Nitrostat] 1 tab SUBLINGUAL Q5M PRN 07/31/14 08/18/19 Pravastatin Sodium [Pravachol] 40 mg PO HS 07/31/14 08/18/19 Tamsulosin [Flomax] 0.4 mg PO HS 07/31/14 08/18/19 Cholecalciferol [Vitamin D3 (25 5,000 unit PO DAILY 08/18/19 08/18/19 Mcg = 1000 Iu)] DULoxetine HCL [Cymbalta] 30 mg PO BID 08/18/19 08/18/19 Gabapentin [Neurontin] 300 mg PO BID 08/18/19 08/18/19 Hydrocodone/Acetaminophen [[place] 1 tab PO Q8H PRN 08/18/19 08/18/19 7.5-325] Previous Rx's Medication Instructions Recorded Apixaban [Eliquis] 5 mg PO BID #60 tab 08/19/19 Pantoprazole [Protonix] 40 mg PO BID 30 Days #60 tablet. 08/22/19 Sennosides [Senokot] 8.6 mg PO BID PRN #20 tablet 08/22/19 Allergies Allergy/AdvReac Type Severity Reaction Status Date / Time metoclopramide HCl Allergy "I would Verified 08/18/19 09:25 [facility] just sit and stare" Penicillins Allergy Rash/Hives Verified 08/18/19 09:25 Review of Systems ROS Statement: Those systems with pertinent positive or pertinent negative responses have been documented in the HPI. ROS Other: All systems not noted in ROS Statement are negative. Past Medical History Past Medical History: Atrial Fibrillation, Asthma, Coronary Artery Disease (CAD), COPD, Hyperlipidemia, Hypertension, Myocardial Infarction (GA), Osteoarthritis (OA), Prostate Disorder, Renal Disease, Skin Disorder Additional Past Medical History / Comment(s): psoriasis; shortness of breath with any strenuous activity; difficulty swallowing hx of foreign body removal from throat 4 times, "leaky heart valve"; stentsx2, bowel resection 30 years ago Last Myocardial Infarction Date:: 2003 History of Any Multi-Drug Resistant Organisms: None Reported Past Surgical History: Bowel Resection, Heart Catheterization With Stent, Hernia Repair, Orthopedic Surgery Additional Past Surgical History / Comment(s): ORIF of left forearm, portion of stomach removed in 1987 from an ulcer,EGD with dilatation. Bilateral hip replacements. Right Knee Past Anesthesia/Blood Transfusion Reactions: No Reported Reaction Date of Last Stent Placement:: 2003 Past Psychological History: No Psychological Hx Reported Past Alcohol Use History: None Reported Past Drug Use History: None Reported - Past Family History Mother Family Medical History: Coronary Artery Disease (CAD), Osteoarthritis (OA) Father Family Medical History: No Reported History General Exam Limitations: no limitations General appearance: alert, in no apparent distress Head exam: Present: atraumatic, normocephalic, normal inspection Respiratory exam: Present: normal lung sounds bilaterally. Absent: respiratory distress, wheezes, rales, rhonchi, stridor Cardiovascular Exam: Present: regular rate, irregular rhythm Extremities exam: Present: other (2+ pitting edema bilaterally. Superficial abrasion to the right nova with minor surrounding erythema.) Neurological exam: Present: alert, oriented X3, CN II-XII intact Psychiatric exam: Present: normal affect, normal mood Course Vital Signs 05/28/22 05/28/22 01:24 03:14 Temperature 98.1 F Pulse Rate 61 56 L Respiratory 18 13 Rate Blood Pressure 139/79 116/63 O2 Sat by Pulse 97 92 L Oximetry Medical Decision Making - Medical Decision Making This is an 82-year-old male who presents to the emergency department for bi lateral lower extremity swelling. Was pt. sent in by a medical professional or institution? @ -No Did you speak to anyone other than the patient for history? @ -No Did you review nursing and triage notes? @ -Yes, and I agree, it is accurate with regards to the patient's symptoms. Were old charts reviewed? @ -ED records sent over from [facility]. Differential Diagnosis? @ -Differential LE Swelling: CHF exacerbation, dependent edema, DVT, cellulitis, gout, lymphadema, this is not meant to be an all-inclusive list. EKG interpreted by me (3pts min.)? @ -Atrial fibrillation. Ventricular rate 62 beats per minute, QRS duration 116 ms, QTC 443 ms. What testing was considered but not performed? (CT, X-rays, U/S, labs)? Why? @ -None What meds were considered but not given? Why? @ -None Did you discuss the management of the patient with other professionals? @ -Yes, Dereck Roque with [facility] who accepts the patient for admission. Did you reconcile home meds? @ -No Was smoking cessation discussed for >3mins.? @ -No Was critical care preformed (if so, how long)? @ -No Were there social determinants of health that impacted care today? How? (Homelessness, low income, unemployed, alcoholism, drug addiction, transportation, low edu. Level, literacy, decrease access to med. care, senior care, rehab)? @ -No Was there de-escalation of care discussed even if they declined? (Discuss DNR or withdrawal of care, Hospice)? @ -No What co-morbidities impacted this encounter? (DM, HTN, Smoking, COPD, CAD, Cancer, CVA, Hep., AIDS, mental health diagnosis, sleep apnea, morbid obesity)? @ -A-fib, COPD, HTN, HLD, CAD, CHF. Was patient admitted / discharged? @ -Admitted. Lab work, imaging, and notes from [facility] were thoroughly reviewed. BNP was actually found to be negative for signs of a CHF exacerbation with a value of 98.4. Troponin was elevated at 0.036. Repeat tr oponin here has decreased down to 0.023. Chest x-ray impression at [facility] reveals cardiomegaly and basilar atelectasis versus scarring. CTA of the chest was also obtained. No pulmonary embolus was identified. Impression stated cardiomegaly with coronary artery calcifications and mild bronchiolitis changes throughout both lungs. Chest x-ray and CTA of the chest were scanned into the system. Patient admitted to medicine for the increasing bilateral lower extremity edema, elevated troponin, and cellulitis. The dose of vancomycin administered at [facility] was finished in our emergency department. We will leave the decision of future antibiotics to the admitting team. 40 mg of IV Lasix was administered. Order placed to continue trending the troponins. Cardiology consult placed as well. Undiagnosed new problem with uncertain prognosis? @ -None Drug Therapy requiring intensive monitoring for toxicity (Heparin, Nitro, Ins ulin, Cardizem)? @ -None Were any procedures done? @ -None Diagnosis/symptom? @ -LE edema, cellulitis, elevated troponin Acute, or Chronic, or Acute on Chronic? @ -Acute Uncomplicated (without systemic symptoms) or Complicated (systemic symptoms)? @ -Complicated Side effects of treatment? @ -None Exacerbation, Progression, or Severe Exacerbation] @ -Not applicable Poses a threat to life or bodily function? @ -Yes This case was discussed in detail with the attending ED physician, Dr. Muro. Presentation, findings, and treatment plan discussed in detail as well. - Lab Data Result diagrams: 05/28/22 01:34 05/28/22 01:34 Lab Results 05/28/22 05/28/22 05/28/22 Range/Units 01:34 01:34 01:34 WBC 4.9 (3.8-10.6) k/uL RBC 3.45 L (4.30-5.90) m/uL Hgb 10.5 L (13.0-17.5) gm/dL Hct 33.1 L (39.0-53.0) % MCV 95.9 (80.0-100.0) fL MCH 30.4 (25.0-35.0) pg MCHC 31.7 (31.0-37.0) g/dL RDW 14.7 (11.5-15.5) % Plt Count 221 (150-450) k/uL MPV 7.5 Neutrophils % 68 % Lymphocytes % 15 % Monocytes % 10 % Eosinophils % 3 % Basophils % 1 % Neutrophils # 3.3 (1.3-7.7) k/uL Lymphocytes # 0.7 L (1.0-4.8) k/uL Monocytes # 0.5 (0-1.0) k/uL Eosinophils # 0.1 (0-0.7) k/uL Basophils # 0.0 (0-0.2) k/uL Sodium 137 (137-145) mmol/L Potassium 4.0 (3.5-5.1) mmol/L Chloride 98 (98-107) mmol/L Carbon Dioxide 35 H (22-30) mmol/L Anion Gap 4 mmol/L BUN 16 (9-20) mg/dL Creatinine 0.97 (0.66-1.25) mg/dL Est GFR (CKD-EPI)AfAm 85 (>60 ml/min/1.73 sqM) Est GFR (CKD-EPI)NonAf 74 (>60 ml/min/1.73 sqM) Glucose 131 H (74-99) mg/dL Calcium 8.0 L (8.4-10.2) mg/dL Total Bilirubin 0.8 (0.2-1.3) mg/dL AST 23 (17-59) U/L ALT 15 (4-49) U/L Alkaline Phosphatase 55 (38-126) U/L Troponin I 0.023 (0.000-0.034) ng/mL C-Reactive Protein <0.5 (<1.0) mg/dL NT-Pro-B Natriuret Pep pg/mL Total Protein 5.7 L (6.3-8.2) g/dL Albumin 3.5 (3.5-5.0) g/dL 05/28/22 Range/Units 01:34 WBC (3.8-10.6) k/uL RBC (4.30-5.90) m/uL Hgb (13.0-17.5) gm/dL Hct (39.0-53.0) % MCV (80.0-100.0) fL MCH (25.0-35.0) pg MCHC (31.0-37.0) g/dL RDW (11.5-15.5) % Plt Count (150-450) k/uL MPV Neutrophils % % Lymphocytes % % Monocytes % % Eosinophils % % Basophils % % Neutrophils # (1.3-7.7) k/uL Lymphocytes # (1.0-4.8) k/uL Monocytes # (0-1.0) k/uL Eosinophils # (0-0.7) k/uL Basophils # (0-0.2) k/uL Sodium (137-145) mmol/L Potassium (3.5-5.1) mmol/L Chloride (98-107) mmol/L Carbon Dioxide (22-30) mmol/L Anion Gap mmol/L BUN (9-20) mg/dL Creatinine (0.66-1.25) mg/dL Est GFR (CKD-EPI)AfAm (>60 ml/min/1.73 sqM) Est GFR (CKD-EPI)NonAf (>60 ml/min/1.73 sqM) Glucose (74-99) mg/dL Calcium (8.4-10.2) mg/dL Total Bilirubin (0.2-1.3) mg/dL AST (17-59) U/L ALT (4-49) U/L Alkaline Phosphatase (38-126) U/L Troponin I (0.000-0.034) ng/mL C-Reactive Protein (<1.0) mg/dL NT-Pro-B Natriuret Pep 587 pg/mL Total Protein (6.3-8.2) g/dL Albumin (3.5-5.0) g/dL - Radiology Data Radiology results: report reviewed, image reviewed Disposition Clinical Impression: Bilateral leg edema, Cellulitis of right lower extremity Disposition: ADMITTED IP TO THIS HOSP
[2022-05-28 01:53] LABS: Chloride 98 mmol/L (98-107)
[2022-05-28 01:57] LABS: ALT 15 U/L (4-49); AST 23 U/L (17-59); African American GFR (CKD) 85 (>60 ml/min/1.73 sqM); Albumin 3.5 g/dL (3.5-5.0); Alkaline Phosphatase 55 U/L (38-126); Anion Gap 4 mmol/L; Blood Urea Nitrogen 16 mg/dL (9-20); C Reactive Protein <0.5 mg/dL (<1.0); Carbon Dioxide 35 mmol/L (22-30); Glucose 131 mg/dL (74-99); Non-African American GFR(CKD) 74 (>60 ml/min/1.73 sqM); Sodium 137 mmol/L (137-145); Total Bilirubin 0.8 mg/dL (0.2-1.3); Total Protein 5.7 g/dL (6.3-8.2)
[2022-05-28 02:07] LABS: Basophils % (A) 1 %; Eosinophils # (A) 0.1 k/uL (0-0.7); Eosinophils % (A) 3 %; HCT 33.1 % (39.0-53.0); HGB 10.5 gm/dL (13.0-17.5); Lymphocytes # (A) 0.7 k/uL (1.0-4.8); Lymphocytes % (A) 15 %; MCH 30.4 pg (25.0-35.0); MCHC 31.7 g/dL (31.0-37.0); MCV 95.9 fL (80.0-100.0); Mean Platelet Volume 7.5; Monocytes # (A) 0.5 k/uL (0-1.0); Monocytes % (A) 10 %; Neutrophils # (A) 3.3 k/uL (1.3-7.7); Neutrophils % (A) 68 %; Platelet Count 221 k/uL (150-450); RBC 3.45 m/uL (4.30-5.90); RDW 14.7 % (11.5-15.5); WBC 4.9 k/uL (3.8-10.6)
[2022-05-28] MEDS ORDERED: FUROSEMIDE 10 MG/ML 4 ML VIAL IV STA (03:01)
[2022-05-28] MEDS ORDERED: ONDANSETRON 4 MG/2 ML VIAL IVP PRN (03:11)
[2022-05-28] MEDS ORDERED: ACETAMINOPHEN TAB 325 MG TAB PO PRN (03:11)
[2022-05-28] MEDS ORDERED: HYDROcodone/APAP 5-325MG 1 EACH TAB PO PRN (03:11)
[2022-05-28] MEDS ORDERED: NALOXONE 0.4 MG/ML 1 ML VIAL IV PRN (03:11)
[2022-05-28] MEDS ORDERED: MECLIZINE 25 MG TAB PO PRN (09:50)
[2022-05-28] MEDS ORDERED: NITROGLYCERIN SL TABS 0.4 MG TAB SUBLINGUAL PRN (09:50)
[2022-05-28] MEDS: DULoxetine HCL 30 MG CAPSULE.DR PO SCH ×2 (11:14→20:08)
[2022-05-28] MEDS: CHOLECALCIFEROL 125 MCG (5000 IU) TABLET PO SCH (11:14)
[2022-05-28] MEDS: APIXABAN 5 MG TAB PO SCH ×2 (11:14→20:08)
[2022-05-28] MEDS: GABAPENTIN 300 MG CAP PO SCH ×2 (11:14→20:08)
[2022-05-28] MEDS: SPIRONOLACTONE 25 MG TAB PO SCH (11:14)
[2022-05-28] MEDS: TAMSULOSIN 0.4 MG CAP.ER.24H PO SCH (11:14)
[2022-05-28] MEDS: FERROUS SULFATE 325 MG TAB PO SCH ×2 (11:14→20:08)
--- NOTE | 2022-05-28 12:20 | XR ---
EXAMINATION TYPE: XR chest 1V portable DATE OF EXAM: 05/28/2022 Comparison: 08/21/2019 Clinical History: 82-year-old male short of breath Findings: Leftward patient rotation to the normal cardiothymic contours. Low lung volumes with crowded vascular markings. There is patchy left basilar opacity. No pleural effusion. Mild interstitial prominence ap pears unchanged. Impression: Limited, rotated exam. There are hypoventilatory changes. Patchy left basilar atelectasis suspected r ather than early infiltrate. Correlate with patient's symptoms.
--- NOTE | 2022-05-28 14:15 | P.HPIM ---
History of Present Illness H&P Date: 05/28/22 This is a 82-year-old male who presented to the emergency department and originally was at [facility] although sent here with concerns of CHF exacerbation with possibly a right lower extremity cellulitis. Patient follows with Selvin Peters in the outpatient setting in [place] along with dolly driver Dr. Leyva with past medical history of atrial fibrillation, asthma, coronary artery disease, COPD, hyperlipidemia, hypertension, myocardial infarction, osteoarthritis, prostate disorder, renal disease. Patient does take metolazone every other day low-dose along with Lasix 40 mg twice daily and Aldactone and has noted some increased shortness of breath with exertion and also some lower extremity edema. On the right lower nova medial aspect there is a small scratch (patient reports from his fingernail) with some mild irritation although no drainage and minimal redness around the site and was given a dose of IV antibiotics. Will initiate Keflex for a few days. Recommend compression stockings to bilateral lower extremities and elevating while at rest. Patient was admitted under observation with cardiology to evaluate. Patient also had some mild elevation in troponins although mostly labile and ACS ruled out. No chest x-ray was done here and a chest x-ray was ordered. Apparently a chest x- ray in [place] showed cardiomegaly and basilar atelectasis and they also performed a CTA with no PE noted. Labs reviewed and CBC was 4.9, hemoglobin was 10.5, platelets 221, sodium 137, potassium 4.0, BUN 16, creatinine 0.97, troponin 0.023, and 0.022, CRP negative, BNP 587, pro calcitonin 0.06. EKG showed atrial fibrillation. Review Of Systems: Constitutional: No fever, no chills, no night sweats. No weight change. No weakness, fatigue or lethargy. No daytime sleepiness. EENT: No headache. No blurred vision or double vision, no loss of vision. No loss of Hearing, no ringing in the ears, no dizziness. No nasal drainage or congestion. No epistaxis. No sore throat. Lungs: Reports some increasing shortness of breath with minimal exertion, cough, no sputum production. No wheezing. Cardiovascular: No chest pain, no lower extremity edema. No palpitations. No paroxysmal nocturnal dyspnea. No orthopnea. No lightheadedness or dizziness. No syncopal episodes. Abdominal: No abdominal pain. No nausea, vomiting. No diarrhea. No constipation. No bloody or tarry stools.. No loss of appetite. Genitourinary: No dysuria, increased frequency, urgency. No urinary retention. Musculoskeletal: No myalgias. No muscle weakness, no gait dysfunction, no frequent falls. No back pain. No neck pain. Integumentary: No wounds, no lesions. No rash or pruritus. No unusual bruising. No change in hair or nails. Neurologic: No aphasia. No facial droop. No change in mentation. No head injury. No headache. No paralysis. No paresthesia. Psychiatric: No depression. No anxiety. No mood swings. Endocrine: No abnormal blood sugars. No weight change. No excessive sweating or thirst. No cold intolerance. PHYSICAL EXAMINATION: GENERAL: The patient is alert and oriented x4, hard of hearing, Well developed, well nourished. Obese HEENT: Pupils are round and equally reacting to light. EOMI. no scleral icterus. No conjunctival pallor. Normocephalic, atraumatic. No pharyngeal erythema. No thyromegaly. CARDIOVASCULAR: S1 and S2 muffled PULMONARY: diminished breath sounds bilaterally with no wheezing or rhonchi noted. Faint crackles noted at the bases ABDOMEN: soft. Nontender on exam. obese. non-distended, normoactive bowel sounds. No palpable organomegaly. MUSCULOSKELETAL: No joint swelling or deformity. EXTREMITIES: No cyanosis, clubbing, or pedal edema. Minimal lower extremity edema nonpitting NEUROLOGICAL: Gross neurological examination did not reveal any focal deficits. Diffuse weakness SKIN: No rashes. Right nova with an abrasion with minimal redness noted, no drainage noted and there is scabbing Assessment: Shortness of breath, likely secondary to acute on chronic congestive heart failure exacerbation with diastolic dysfunction Persistent atrial fibrillation history, currently rate controlled Hypertension Hyperlipidemia History of asthma/COPD, not in exacerbation Coronary artery disease History of myocardial infarction history of osteoarthritis GI prophylaxis DVT prophylaxis Full code Plan: Recommend to continue with current medications and management with cardiology consulted and pending at this time. Will await cardiology evaluation appreciate input and recommendations. Patient was sent here from [facility] for further cardiology evaluation for mild CHF exacerbation Patient was given a dose of vancomycin with concerns of right nova cellulitis and does not appear cellulitic and will not continue any antibiotics until calcitonin was negative. This is a scratch from patient's fingernail that has some scabbing and it ultimately appears somewhat reddened initially although has improved and there is no sign of infection most likely secondary to CHF exacerbation with bilateral lower extremity edema Recommend compression stockings for bilateral lower extremities and elevating while at rest Patient will need outpatient follow-up with his dolly driver once discharged The impression and plan of care has been dictated by Kinjal Ballard, nurse practitioner as directed. Dr. Maribell MD I have performed a history and examination and MDM of this patient, discussed the same with the dictator, and agree with the dictator's assessment and plan as written ,documented as a scribe. Based on total visit time, I have performed more than 50% of the visit. Any additional findings or plans will be noted. Past Medical History Past Medical History: Atrial Fibrillation, Asthma, Coronary Artery Disease (CAD), COPD, Hyperlipidemia, Hypertension, Myocardial Infarction ([place]), Osteoarthritis (OA), Prostate Disorder, Renal Disease, Skin Disorder Additional Past Medical History / Comment(s): psoriasis; shortness of breath with any strenuous activity; difficulty swallowing hx of foreign body removal from throat 4 times, "leaky heart valve"; stentsx2, bowel resection 30 years ago Last Myocardial Infarction Date:: 2003 History of Any Multi-Drug Resistant Organisms: None Reported Past Surgical History: Bowel Resection, Heart Catheterization With Stent, Hernia Repair, Orthopedic Surgery Additional Past Surgical History / Comment(s): ORIF of left forearm, portion of stomach removed in 1987 from an ulcer,EGD with dilatation. Bilateral hip replacements. Right Knee Past Anesthesia/Blood Transfusion Reactions: No Reported Reaction Date of Last Stent Placement:: 2003 Past Psychological History: No Psychological Hx Reported Past Alcohol Use History: None Reported Past Drug Use History: None Reported - Past Family History Mother Family Medical History: Coronary Artery Disease (CAD), Osteoarthritis (OA) Father Family Medical History: No Reported History Medications and Allergies Home Medications Medication Instructions Recorded Confirmed Type Baclofen [Lioresal] 10 mg PO TID PRN 07/31/14 05/28/22 History Ferrous Sulfate [Iron (65 MG 325 mg PO BID 07/31/14 05/28/22 History Elemental)] Furosemide [Lasix] 40 mg PO BID 07/31/14 05/28/22 History Meclizine [Antivert] 25 mg PO TID PRN 07/31/14 05/28/22 History Nitroglycerin Sl Tabs [Nitrostat] 0.4 mg SUBLINGUAL Q5M PRN 07/31/14 05/28/22 History Pravastatin Sodium [Pravachol] 40 mg PO HS 07/31/14 05/28/22 History DULoxetine HCL [Cymbalta] 30 mg PO BID 08/18/19 05/28/22 History Gabapentin [Neurontin] 300 mg PO BID 08/18/19 05/28/22 History Hydrocodone/Acetaminophen [[place] 1 tab PO BID PRN 08/18/19 05/28/22 History 7.5-325] Apixaban [Eliquis] 5 mg PO BID #60 tab 08/19/19 05/28/22 Rx Pantoprazole [Protonix] 40 mg PO BID 30 Days #60 tablet. 08/22/19 05/28/22 Rx Cholecalciferol [Vitamin D3 (125 125 mcg PO DAILY 05/28/22 05/28/22 History Mcg = 5000 Iu)] Potassium Chloride [Klor-Con M20] 20 meq PO QID 05/28/22 05/28/22 History Spironolactone [Aldactone] 25 mg PO DAILY 05/28/22 05/28/22 History Tamsulosin [Flomax] 0.4 mg PO DAILY 05/28/22 05/28/22 History metOLazone 2.5 mg PO Q2D 05/28/22 05/28/22 History Allergies Allergy/AdvReac Type Severity Reaction Status Date / Time metoclopramide HCl Allergy Hallucinati Verified 05/28/22 09:15 [From [facility]] ons Penicillins Allergy Rash/Hives Verified 05/28/22 09:15 Physical Exam Vitals: Vital Signs Temp Pulse Resp BP Pulse Ox 05/28/22 07:30 54 L 16 100/53 98 05/28/22 06:00 57 L 14 110/68 05/28/22 05:00 51 L 15 112/73 93 L 05/28/22 04:00 56 L 16 116/63 93 L 05/28/22 03:14 56 L 13 116/63 92 L 05/28/22 01:24 98.1 F 61 18 139/79 97 Intake and Output 05/27/22 05/28/22 05/28/22 22:59 06:59 14:59 Other: Weight 88.451 kg Results CBC & Chem 7: 05/28/22 01:34 05/28/22 01:34 Labs: Abnormal Lab Results - Last 24 Hours (Table) 05/28/22 05/28/22 Range/Units 01:34 01:34 RBC 3.45 L (4.30-5.90) m/uL Hgb 10.5 L (13.0-17.5) gm/dL Hct 33.1 L (39.0-53.0) % Lymphocytes # 0.7 L (1.0-4.8) k/uL Carbon Dioxide 35 H (22-30) mmol/L Glucose 131 H (74-99) mg/dL Calcium 8.0 L (8.4-10.2) mg/dL Total Protein 5.7 L (6.3-8.2) g/dL Thrombosis Risk Factor Assmnt - DVT/VTE Prophylaxis DVT/VTE Prophylaxis: Pharmacologic Prophylaxis ordered Assessment and Plan Time with Patient: Greater than 30
[2022-05-28] MEDS: PANTOPRAZOLE 40 MG TABLET PO SCH (15:31)
[2022-05-28] MEDS: CEPHALEXIN 500 MG CAP PO SCH ×2 (15:31→20:08)
[2022-05-28] MEDS: HYDROcodone/APAP 7.5-325MG 1 EACH TAB PO PRN ×2 (15:35→22:42)
[2022-05-28] MEDS: BACLOFEN 10 MG TAB PO PRN (15:36)
[2022-05-28] MEDS ORDERED: FUROSEMIDE 40 MG TAB PO SCH (16:00)
[2022-05-28] MEDS: PRAVASTATIN SODIUM 40 MG TAB PO SCH (20:08)
--- NOTE | 2022-05-28 20:51 | P.CRDCN ---
History of Present Illness Consult date: 05/28/22 History of present illness: The patient is a very pleasant 82-year-old gentleman who sees Dr. Leyva irregularly with a past medical history significant for coronary artery disease with prior stenting of the LCx and RCA as well as known cardiomyopathy with the last echocardiogram from 2019 showing an EF between 40-45% as well as valvular heart disease with aortic stenosis and mitral regurgitation and also permanent atrial fibrillation as well as multiple comorbid conditions was admitted to the hospital with increasing shortness of breath. As a matter of fact the patient was transferred from [facility]. The patient presented with a progressive bilateral lower extremities edema according to him and his family members started a few days ago. He reports increasing in the shortness of breath but not significantly compared to his baseline. He reports no pain in the chest and no dizziness or lightheadedness and no feeling of heart racing or fluttering or presyncope or syncope. He reports no fever and no chills and no cough productive of sputum. He states clearly that he has been compliant with all of his medications including the oral diuretics he was on. He underwent workup in the emergency department including an EKG showing atrial fibrillation with overall controlled heart rate and diffuse nonspecific ST and T wave abnormalities and also a chest x-ray was performed and that did not show any acute abnormalities. The patient was admitted to the hospital with congestive heart failure predominantly right heart failure and also bilateral lower extremity cellulitis. We consulted to see the patient for that reason. He underwent also further blood work including CBC and BMP and that came in to be unremarkable and CT of the chest showed no pulmonary embolism. Please note that the patient underwent an echocardiogram in 2020 and that revealed mildly impaired LV function with EF between 40-45% with valvular heart disease and known mild aortic stenosis as well as moderate mitral regurgitation as well as severe pulmonary hypertension as well as severe tricuspid regurgitation.. Currently he is on by mouth diuretics. The patient was seen and examined. On examination he does have bilateral lower extremities pitting edema with david ateral rhonchi as well as he was found to have irregular rhythm with a systolic murmur at the right upper sternal border. Assessment Progressive bilateral lower extremities edema and increasing in the shortness of breath Heart failure exacerbation secondary to heart failure with reduced ejection fraction with right more than left failure Bilateral lower extremity cellulitis Known severe pulmonary hypertension Known cardiomyopathy with EF between 40-45% Valvular heart disease with aortic stenosis and mitral regurgitation Coronary artery disease with prior stenting of the LCx and RCA Permanent atrial fibrillation on oral anticoagulation Plan DC Lasix by mouth and start the patient on Lasix IV Continue the current medical regimen Continue anticoagulation Repeat the echo to assess the ejection fraction and aortic and mitral valves Monitor the kidney function and electrolytes Consider discharge in the next 24-48 hours Past Medical History Past Medical History: Atrial Fibrillation, Asthma, Coronary Artery Disease (CAD), COPD, Hyperlipidemia, Hypertension, Myocardial Infarction ([place]), Osteoarthritis ([place]), Prostate Disorder, Renal Disease, Skin Disorder Additional Past Medical History / Comment(s): psoriasis; shortness of breath with any strenuous activity; difficulty swallowing hx of foreign body removal from throat 4 times, "leaky heart valve"; stentsx2, bowel resection 30 years ago Last Myocardial Infarction Date:: 2003 History of Any Multi-Drug Resistant Organisms: None Reported Past Surgical History: Bowel Resection, Heart Catheterization With Stent, Hernia Repair, Orthopedic Surgery Additional Past Surgical History / Comment(s): ORIF of left forearm, portion of stomach removed in 1987 from an ulcer,EGD with dilatation. Bilateral hip replacements. Right Knee Past Anesthesia/Blood Transfusion Reactions: No Reported Reaction Date of Last Stent Placement:: 2003 Past Psychological History: No Psychological Hx Reported Past Alcohol Use History: None Reported Past Drug Use History: None Reported - Past Family History Mother Family Medical History: Coronary Artery Disease (CAD), Osteoarthritis (OA) Father Family Medical History: No Reported History Medications and Allergies Home Medications Medication Instructions Recorded Confirmed Type Baclofen [Lioresal] 10 mg PO TID PRN 07/31/14 05/28/22 History Ferrous Sulfate [Iron (65 MG 325 mg PO BID 07/31/14 05/28/22 History Elemental)] Furosemide [Lasix] 40 mg PO BID 07/31/14 05/28/22 History Meclizine [Antivert] 25 mg PO TID PRN 07/31/14 05/28/22 History Nitroglycerin Sl Tabs [Nitrostat] 0.4 mg SUBLINGUAL Q5M PRN 07/31/14 05/28/22 History Pravastatin Sodium [Pravachol] 40 mg PO HS 07/31/14 05/28/22 History DULoxetine HCL [Cymbalta] 30 mg PO BID 08/18/19 05/28/22 History Gabapentin [Neurontin] 300 mg PO BID 08/18/19 05/28/22 History Hydrocodone/Acetaminophen [[place] 1 tab PO BID PRN 08/18/19 05/28/22 History 7.5-325] Apixaban [Eliquis] 5 mg PO BID #60 tab 08/19/19 05/28/22 Rx Pantoprazole [Protonix] 40 mg PO BID 30 Days #60 tablet. 08/22/19 05/28/22 Rx Cholecalciferol [Vitamin D3 (125 125 mcg PO DAILY 05/28/22 05/28/22 History Mcg = 5000 Iu)] Potassium Chloride [Klor-Con M20] 20 meq PO QID 05/28/22 05/28/22 History Spironolactone [Aldactone] 25 mg PO DAILY 05/28/22 05/28/22 History Tamsulosin [Flomax] 0.4 mg PO DAILY 05/28/22 05/28/22 History metOLazone 2.5 mg PO Q2D 05/28/22 05/28/22 History Allergies Allergy/AdvReac Type Severity Reaction Status Date / Time metoclopramide HCl Allergy Hallucinati Verified 05/28/22 09:15 [From Reglan] ons Penicillins Allergy Rash/Hives Verified 05/28/22 09:15 Physical Exam Vitals: Vital Signs Temp Pulse Pulse Resp BP BP Pulse Ox 05/28/22 20:00 98.4 F 61 17 108/62 94 L 05/28/22 13:45 97.9 F 55 L 16 126/70 95 05/28/22 10:56 97.5 F L 54 L 16 118/74 93 L 05/28/22 10:00 49 L 12 99/56 05/28/22 09:00 56 L 14 108/66 05/28/22 07:30 54 L 16 100/53 98 05/28/22 06:00 57 L 14 110/68 05/28/22 05:00 51 L 15 112/73 93 L 05/28/22 04:00 56 L 16 116/63 93 L 05/28/22 03:14 56 L 13 116/63 92 L 05/28/22 01:24 98.1 F 61 18 139/79 97 Intake and Output 03/15/23 03/15/23 03/15/23 06:59 14:59 22:59 Output Total 600 275 Balance -600 -275 Output: Urine 600 275 Other: Weight 88.451 kg Results 05/28/22 01:34 05/28/22 01:34 Cardiac Enzymes 05/28/22 05/28/22 05/28/22 Range/Units 01:34 01:34 05:17 AST 23 (17-59) U/L Troponin I 0.023 0.022 (0.000-0.034) ng/mL CBC 05/28/22 Range/Units 01:34 WBC 4.9 (3.8-10.6) k/uL RBC 3.45 L (4.30-5.90) m/uL Hgb 10.5 L (13.0-17.5) gm/dL Hct 33.1 L (39.0-53.0) % Plt Count 221 (150-450) k/uL Comprehensive Metabolic Panel 05/28/22 Range/Units 01:34 Sodium 137 (137-145) mmol/L Potassium 4.0 (3.5-5.1) mmol/L Chloride 98 (98-107) mmol/L Carbon Dioxide 35 H (22-30) mmol/L BUN 16 (9-20) mg/dL Creatinine 0.97 (0.66-1.25) mg/dL Glucose 131 H (74-99) mg/dL Calcium 8.0 L (8.4-10.2) mg/dL AST 23 (17-59) U/L ALT 15 (4-49) U/L Alkaline Phosphatase 55 (38-126) U/L Total Protein 5.7 L (6.3-8.2) g/dL Albumin 3.5 (3.5-5.0) g/dL Current Medications Generic Name Dose Route Start Last Admin Trade Name Freq PRN Reason Stop Dose Admin Acetaminophen 650 mg 05/28/22 03:11 Acetaminophen Tab 325 Mg Tab PO Q6HR PRN Mild Pain or Fever > 100.5 Hydrocodone Bitart/Acetaminophen 1 each 05/28/22 09:50 05/28/22 15:35 Hydrocodone/Apap 7.5-325mg 1 Each Tab PO 1 each BID PRN Administration Severe Pain (Scale 7 to 10) Apixaban 5 mg 05/28/22 10:15 05/28/22 20:08 Apixaban 5 Mg Tab PO 5 mg BID MOUNIKA Administration Protocol Baclofen 10 mg 05/28/22 09:50 05/28/22 15:36 Baclofen 10 Mg Tab PO 10 mg TID PRN Administration Muscle Spasm Cephalexin 500 mg 05/28/22 16:00 05/28/22 20:08 Cephalexin 500 Mg Cap PO 500 mg TID MOUNIKA Administration Protocol Cholecalciferol 125 mcg 05/28/22 10:15 05/28/22 11:14 Cholecalciferol 125 Mcg (5000 Iu) Tablet PO 125 mcg DAILY MOUNIKA Administration Duloxetine HCl 30 mg 05/28/22 10:15 05/28/22 20:08 Duloxetine Hcl 30 Mg Capsule.Dr PO 30 mg BID MOUNIKA Administration Ferrous Sulfate 325 mg 05/28/22 10:15 05/28/22 20:08 Ferrous Sulfate 325 Mg Tab PO 325 mg BID MOUNIKA Administration Furosemide 40 mg 05/28/22 16:00 05/28/22 15:31 Furosemide 40 Mg Tab PO 40 mg BID@0900,1600 MOUNIKA Administration Gabapentin 300 mg 05/28/22 10:15 05/28/22 20:08 Gabapentin 300 Mg Cap PO 300 mg BID MOUNIKA Administration Meclizine HCl 25 mg 05/28/22 09:50 Meclizine 25 Mg Tab PO TID PRN DIZZINESS Naloxone HCl 0.2 mg 05/28/22 03:11 Naloxone 0.4 Mg/Ml 1 Ml Vial IV Q2M PRN Opioid Reversal Nitroglycerin 0.4 mg 05/28/22 09:50 Nitroglycerin Sl Tabs 0.4 Mg Tab SUBLINGUAL Q5M PRN Chest Pain Ondansetron HCl 4 mg 05/28/22 03:11 Ondansetron 4 Mg/2 Ml Vial IVP Q8HR PRN Nausea And Vomiting Pantoprazole Sodium 40 mg 05/28/22 17:30 05/28/22 15:31 Pantoprazole 40 Mg Tablet PO 40 mg AC-BID MOUNIKA Administration Pravastatin Sodium 40 mg 05/28/22 21:00 05/28/22 20:08 Pravastatin Sodium 40 Mg Tab PO 40 mg HS MOUNIKA Administration Spironolactone 25 mg 05/28/22 10:15 05/28/22 11:14 Spironolactone 25 Mg Tab PO 25 mg DAILY MOUNIKA Administration Tamsulosin HCl 0.4 mg 05/28/22 10:15 05/28/22 11:14 Tamsulosin 0.4 Mg Cap.Er.24h PO 0.4 mg DAILY MOUNIKA Administration Intake and Output 05/28/22 05/28/22 05/28/22 06:59 14:59 22:59 Output Total 600 275 Balance -600 -275 Output: Urine 600 275 Other: Weight 88.451 kg 05/28/22 01:34 05/28/22 01:34
[2022-05-28] MEDS: FUROSEMIDE 10 MG/ML 4 ML VIAL IV SCH (21:54)
[2022-05-29] MEDS: PANTOPRAZOLE 40 MG TABLET PO SCH ×2 (06:08→16:44)
--- NOTE | 2022-05-29 08:45 | P.PN ---
Subjective Progress Note Date: 05/29/22 Principal diagnosis: CHF The patient is a very pleasant 82-year-old gentleman who sees Dr. Leyva irregularly with a past medical history significant for coronary artery disease with prior stenting of the LCx and RCA as well as known cardiomyopathy with the last echocardiogram from 2019 showing an EF between 40-45% as well as valvular heart disease with aortic stenosis and mitral regurgitation and also permanent atrial fibrillation as well as multiple comorbid conditions was admitted to the hospital with increasing shortness of breath. As a matter of fact the patient was transferred from [facility]. The patient presented with a progressive bilateral lower extremities edema according to him and his family members started a few days ago. He reports increasing in the shortness of breath but not significantly compared to his baseline. He reports no pain in t he chest and no dizziness or lightheadedness and no feeling of heart racing or fluttering or presyncope or syncope. He reports no fever and no chills and no cough productive of sputum. He states clearly that he has been compliant with all of his medications including the oral diuretics he was on. He underwent workup in the emergency department including an EKG showing atrial fibrillation with overall controlled heart rate and diffuse nonspecific ST and T wave abnormalities and also a chest x-ray was performed and that did not show any acute abnormalities. The patient was admitted to the hospital with congestive heart failure predominantly right heart failure and also bilateral lower extr emity cellulitis. We consulted to see the patient for that reason. He underwent also further blood work including CBC and BMP and that came in to be unremarkable and CT of the chest showed no pulmonary embolism. Please note that the patient underwent an echocardiogram in 2019 and that revealed mildly impaired LV function with EF between 40-45% with valvular heart disease and known mild aortic stenosis as well as moderate mitral regurgitation as well as severe pulmonary hypertension as well as severe tricuspid regurgitation.. Currently he is on by mouth diuretics. The patient was seen and examined. On examination he does have bilateral lower extremities pitting edema with bilateral rhonchi as well as he was found to have irregular rhythm with a systolic murmur at the right upper sternal border. May [id number] The patient was seen and evaluated this morning. He was started on IV Lasix yesterday. He was seen today. The lower extremity is edema is somewhat slightly better. He stated "I feel better". He reports no pain in the chest and shortness of breath has improved. He is hemodynamically stable. On examination he does have mild bilateral lower extremities edema and he wears compression socks. He also does have diminished breathing sounds bilaterally and crackles has improved. Echo still pending. Assessment Progressive bilateral lower extremities edema and increasing in the shortness of breath Heart failure exacerbation secondary to heart failure with reduced ejection fraction with right more than left failure Bilateral lower extremity cellulitis Known severe pulmonary hypertension Known cardiomyopathy with EF between 40-45% Valvular heart disease with aortic stenosis and mitral regurgitation Coronary artery disease with prior stenting of the LCx and RCA Permanent atrial fibrillation on oral anticoagulation Plan Continue the current medical regimen Continue anticoagulation Follow-up on the echocardiogram Monitor the kidney function and electrolytes Consider discharge in the next 24-48 hours Objective - Vital Signs Vital signs: Vital Signs Temp 98.2 F 05/29/22 07:10 Pulse 57 L 05/29/22 07:10 Resp 16 05/29/22 07:10 BP 123/68 05/29/22 07:10 Pulse Ox 90 L 05/29/22 07:10 FiO2 Intake & Output 05/28/22 05/29/22 05/29/22 18:59 06:59 18:59 Output Total 600 575 400 Balance -600 -575 -400 Output: Urine 600 575 400 Other: Voiding Method Urinal - Labs CBC & Chem 7: 05/28/22 01:34 05/28/22 01:34
[2022-05-29] MEDS: CEPHALEXIN 500 MG CAP PO SCH ×3 (09:33→19:57)
[2022-05-29] MEDS: FUROSEMIDE 10 MG/ML 4 ML VIAL IV SCH ×2 (09:33→19:56)
[2022-05-29] MEDS: DULoxetine HCL 30 MG CAPSULE.DR PO SCH ×2 (09:33→19:59)
[2022-05-29] MEDS: GABAPENTIN 300 MG CAP PO SCH ×2 (09:33→19:57)
[2022-05-29] MEDS: TAMSULOSIN 0.4 MG CAP.ER.24H PO SCH (09:34)
[2022-05-29] MEDS: FERROUS SULFATE 325 MG TAB PO SCH ×2 (09:34→19:57)
[2022-05-29] MEDS: CHOLECALCIFEROL 125 MCG (5000 IU) TABLET PO SCH (09:34)
[2022-05-29] MEDS: APIXABAN 5 MG TAB PO SCH ×2 (09:34→19:57)
[2022-05-29] MEDS: SPIRONOLACTONE 25 MG TAB PO SCH (09:34)
--- NOTE | 2022-05-29 11:21 | CA ---
Transthoracic Echo Report Name: Chito Rouse Age: 82 Gender: M : 1940 Exam Date: 05/29/2022 08:59 Exam Location: [place] [facility] Ht (in): 67 Wt (lb): 195 Ordering Physician: Damaso King MD ([id number]) Attending/Referring Phys: Tapper Bit Cherie Redd RDCS Procedure CPT: Indications: chf Cardiac Hx: A fib Technical Quality: Good Contrast 1: Total Dose (mL): Contrast 2: Total Dose (mL): MEASUREMENTS (Male / Female) Normal Values 2D ECHO LV Diastolic Diameter PLAX 4.3 cm 4.2 - 5.9 / 3.9 - 5.3 cm LV Systolic Diameter PLAX 3.1 cm IVS Diastolic Thickness 1.2 cm 0.6 - 1.0 / 0.6 - 0.9 cm LVPW Diastolic Thickness 1.1 cm 0.6 - 1.0 / 0.6 - 0.9 cm LV Relative Wall Thickness 0.5 RV Internal Dim ED PLAX 4.0 cm LA Systolic Diameter LX 4.6 cm 3.0 - 4.0 / 2.7 - 3.8 cm LV Diastolic Volume MOD BP 120.0 cm??? 67 - 155 / 56 - 104 cm??? LV Systolic Volume MOD BP 66.2 cm??? 22 - 58 / 19 - 49 cm??? LV Ejection Fraction MOD BP 44.9 % >= 55 % LV Diastolic Volume MOD 4C 119.0 cm??? LV Systolic Volume MOD 4C 76.8 cm??? LV Ejection Fraction MOD 4C 35.5 % LV Diastolic Length 4C 7.1 cm LV Systolic Length 4C 6.9 cm LV Diastolic Volume MOD 2C 114.1 cm??? LV Systolic Volume MOD 2C 56.8 cm??? LV Ejection Fraction MOD 2C 50.2 % LV Diastolic Length 2C 7.6 cm LV Systolic Length 2C 7.0 cm LA Volume 106.3 cm??? 18 - 58 / 22 - 52 cm??? M-MODE Aortic Root Diameter MM 3.2 cm MV E Point Septal Separation 0.9 cm AV Cusp Separation MM 1.7 cm DOPPLER AV Peak Velocity 206.7 cm/s AV Peak Gradient 17.1 mmHg AV Mean Velocity 142.7 cm/s AV Mean Gradient 9.1 mmHg AV Velocity Time Integral 47.4 cm AI Peak Velocity 421.2 cm/s AI Peak Gradient 71.0 mmHg AI Pressure Half Time 979.7 ms MV Peak Velocity 198.4 cm/s MV Peak Gradient 15.7 mmHg MV Mean Velocity 73.6 cm/s MV Mean Gradient 3.2 mmHg MV Velocity Time Integral 43.8 cm MV Area PHT 3.2 cm??? MV Deceleration Time 235.4 ms TR Peak Velocity 322.6 cm/s TR Peak Gradient 41.6 mmHg Right Ventricular Systolic Press 46.5 mmHg FINDINGS Left Ventricle Left ventricular ejection fraction is estimated at 40-45 %. Left ventricular cavity size normal. Mildly increased septal wall thickness. Mildly increased left ventricular systolic volume. Moderately decreased left ventricular ejection fraction. Right Ventricle Severe right ventricular dilatation. Moderate pulmonary hypertension. Right Atrium Normal right atrial size. Left Atrium Mildly increased left atrial diameter. Severely increased left atrial volume. Mildly increased left atrial area. Mitral Valve Mitral valve thickened. Mitral annular calcification. Mild mitral regurgitation. Aortic Valve Trileaflet aortic valve. Mild aortic stenosis with a peak gradient of 17 mmHg and a mean gradient of 9 mmHg. Mild aortic regurgitation. Tricuspid Valve Structurally normal tricuspid valve. Mild to moderate tricuspid regurgitation. Pulmonic Valve Structurally normal pulmonic valve. No pulmonic regurgitation. Pericardium Normal pericardium. No pericardial effusion. Aorta Normal size aortic root and proximal ascending aorta. CONCLUSIONS Impaired LV function with EF between 40-45% [id number] mitral regurgitation Aortic sclerosis with mild aortic stenosis and mild aortic insufficiency Previewed by: Dr. Damaso King MD (Electronically Signed) Final Date: 29 May 2022 11:20
[2022-05-29] MEDS: PRAVASTATIN SODIUM 40 MG TAB PO SCH (19:57)
[2022-05-29] MEDS: HYDROcodone/APAP 7.5-325MG 1 EACH TAB PO PRN (19:58)
[2022-05-29] MEDS: FLUTICASONE 50MCG/SPRAY NASAL 16GM EA NOSTRIL SCH (20:43)
--- NOTE | 2022-05-30 04:53 | P.PN ---
Subjective Progress Note Date: 05/29/22 This is a 82-year-old male who presented to the emergency department and originally was at [facility] although sent here with concerns of CHF exacerbation with possibly a right lower extremity cellulitis. Patient follows with Selvin Peters in the outpatient setting in [place] along with wood panel inspector Dr. Leyva with past medical history of atrial fibrillation, asthma, coronary artery disease, COPD, hyperlipidemia, hypertension, myocardial infarction, osteoarthritis, prostate disorder, renal disease. Patient does take metolazone every other day low-dose along with Lasix 40 mg twice daily and Aldactone and has noted some increased shortness of breath with exertion and also some lower extremity edema. On the right lower nova medial aspect there is a small scratch (patient reports from his fingernail) with some mild irritation although no drainage and minimal redness around the site and was given a dose of IV antibiotics. Will initiate Keflex for a few days. Recommend compression stockings to bilateral lower extremities and elevating while at rest. Patient was admitted under observation with cardiology to evaluate. Patient also had some mild elevation in troponins although mostly labile and ACS ruled out. No chest x-ray was done here and a chest x-ray was ordered. Apparently a chest x- ray in [place] showed cardiomegaly and basilar atelectasis and they also per formed a CTA with no PE noted. Labs reviewed and CBC was 4.9, hemoglobin was 10.5, platelets 221, sodium 137, potassium 4.0, BUN 16, creatinine 0.97, troponin 0.023, and 0.022, CRP negative, BNP 587, pro calcitonin 0.06. EKG showed atrial fibrillation. 05/29/2022 Patient is seen and evaluated follow-up currently sitting at the site of the bed as patient reports he was able to walk to the bathroom and back and feels less short of breath. Patient reports there is some improvement in his lower extremity edema and continues with compression stockings. Patient is continued on oral Keflex and will continue short course. Patient is being followed by cardiology recommending an additional 24 hours of IV Lasix and will follow-up on repeat labs. Encouraged increase activity as tolerated and discussing possible discharge in 24 hours. PHYSICAL EXAMINATION: GENERAL: The patient is alert and oriented x4, hard of hearing, Well developed, well nourished. Obese HEENT: Pupils are round and equally reacting to light. EOMI. no scleral icterus. No conjunctival pallor. Normocephalic, atraumatic. No pharyngeal erythema. No thyromegaly. CARDIOVASCULAR: S1 and S2 muffled PULMONARY: diminished breath sounds bilaterally with no wheezing or rhonchi noted. Faint crackles noted at the bases with faint expiratory wheeze ABDOMEN: soft. Nontender on exam. obese. non-distended, normoactive bowel sounds. No palpable organomegaly. MUSCULOSKELETAL: No joint swelling or deformity. EXTREMITIES: No cyanosis, clubbing, or pedal edema. Minimal lower extremity edema non-pitting with some improvement NEUROLOGICAL: Gross neurological examination did not reveal any focal deficits. Diffuse weakness SKIN: No rashes. Right nova with an abrasion with minimal redness noted, no drainage noted and there is scabbing Assessment: Shortness of breath, likely secondary to acute on chronic congestive heart failure exacerbation with reduced EF 45% Persistent atrial fibrillation history, currently rate controlled Concerns for right lower extremity cellulitis, suspicion is low is there is a scratch noted with no surrounding redness or drainage noted Hypertension Hyperlipidemia History of asthma/COPD, not in exacerbation Coronary artery disease History of myocardial infarction history of osteoarthritis GI prophylaxis DVT prophylaxis Full code Plan: Recommend to continue with current medications and management with cardiology following her Coumadin monitoring on IV Lasix for an additional 24 hours. There is some improvement in lower extremity edema and patient reports improvement in his shortness of breath. Patient does have a slight wheeze on expiration will add albuterol inhaler and patient also complaining of nasal congestion and will add Flonase Patient was sent here from [facility] for further cardiology evaluation for mild CHF exacerbation Patient was given a dose of vancomycin with concerns of right nova cellulitis and does not appear cellulitic and will continue empiric antibiotics in the form of Keflex. procalcitonin was negative. This is a scratch from patient's fingernail that has some scabbing and it ultimately appears somewhat reddened initially although has improved and there is no sign of infection most likely secondary to CHF exacerbation with bilateral lower extremity edema Recommend compression stockings for bilateral lower extremities and elevating while at rest We'll continue to monitor overnight with discharge most likely in 24 hours Patient will need outpatient follow-up with his wood panel inspector once discharged The impression and plan of care has been dictated by Kinjal Ballard, nurse practitioner as directed. Dr. Anthony MD I have performed a history and examination and MDM of this patient, discussed the same with the dictator, and agree with the dictator's assessment and plan as written ,documented as a scribe. Based on total visit time, I have performed more than 50% of the visit. Any additional findings or plans will be noted. Objective - Vital Signs Vital signs: Vital Signs Temp 98.2 F 05/29/22 07:10 Pulse 57 L 05/29/22 07:10 Resp 16 05/29/22 07:10 BP 123/68 05/29/22 07:10 Pulse Ox 90 L 05/29/22 07:10 FiO2 Intake & Output 05/28/22 05/29/22 05/29/22 18:59 06:59 18:59 Output Total 600 575 400 Balance -600 -575 -400 Output: Urine 600 575 400 Other: Voiding Method Urinal - Labs CBC & Chem 7: 05/28/22 01:34 05/28/22 01:34
[2022-05-30] MEDS: ALBUTEROL NEBULIZED 2.5 MG/3 ML INHALATION SCH ×2 (08:39→12:01)
--- NOTE | 2022-05-30 09:24 | P.PN ---
Subjective Progress Note Date: 05/30/22 Principal diagnosis: CHF The patient is a very pleasant 82-year-old gentleman who sees Dr. Leyva irregularly with a past medical history significant for coronary artery disease with prior stenting of the LCx and RCA as well as known cardiomyopathy with the last echocardiogram from 2019 showing an EF between 40-45% as well as valvular heart disease with aortic stenosis and mitral regurgitation and also permanent atrial fibrillation as well as multiple comorbid conditions was admitted to the hospital with increasing shortness of breath. As a matter of fact the patient was transferred from [facility]. The patient presented with a progressive bilateral lower extremities edema according to him and his family members started a few days ago. He reports increasing in the shortness of breath but not significantly compared to his baseline. He reports no pain in t he chest and no dizziness or lightheadedness and no feeling of heart racing or fluttering or presyncope or syncope. He reports no fever and no chills and no cough productive of sputum. He states clearly that he has been compliant with all of his medications including the oral diuretics he was on. He underwent workup in the emergency department including an EKG showing atrial fibrillation with overall controlled heart rate and diffuse nonspecific ST and T wave abnormalities and also a chest x-ray was performed and that did not show any acute abnormalities. The patient was admitted to the hospital with congestive heart failure predominantly right heart failure and also bilateral lower extr emity cellulitis. We consulted to see the patient for that reason. He underwent also further blood work including CBC and BMP and that came in to be unremarkable and CT of the chest showed no pulmonary embolism. Please note that the patient underwent an echocardiogram in 2019 and that revealed mildly impaired LV function with EF between 40-45% with valvular heart disease and known mild aortic stenosis as well as moderate mitral regurgitation as well as severe pulmonary hypertension as well as severe tricuspid regurgitation.. Currently he is on by mouth diuretics. The patient was seen and examined. On examination he does have bilateral lower extremities pitting edema with bilateral rhonchi as well as he was found to have irregular rhythm with a systolic murmur at the right upper sternal border. May 292022 The patient was seen and evaluated this morning. He was started on IV Lasix yesterday. He was seen today. The lower extremity is edema is somewhat slightly better. He stated "I feel better". He reports no pain in the chest and shortness of breath has improved. He is hemodynamically stable. On examination he does have mild bilateral lower extremities edema and he wears compression socks. He also does have diminished breathing sounds bilaterally and crackles has improved. Echo still pending. May 302022 The patient was seen this morning. Overall he is feeling better. He underwent an echo which revealed mildly impaired LV function with mild to moderate MR and mild aortic stenosis and mild aortic regurgitation. On examination he seems to be euvolemic beside very mild bilateral lower extremities edema and he continues to wear compression socks. From the cardiac standpoint of view, I'm going to DC Lasix IV and start the patient on Lasix by mouth and the patient can be discharged home. Assessment Progressive bilateral lower extremities edema and increasing in the shortness of breath Heart failure exacerbation secondary to heart failure with reduced ejection fraction with right more than left failure Bilateral lower extremity cellulitis Known severe pulmonary hypertension Known cardiomyopathy with EF between 40-45% Valvular heart disease with aortic stenosis and regurgitation and mitral regurgitation Coronary artery disease with prior stenting of the LCx and RCA Permanent atrial fibrillation on oral anticoagulation Plan Continue the current medical regimen Continue anticoagulation DC Lasix IV and start the patient on Lasix by mouth The patient can be discharged home Objective - Vital Signs Vital signs: Vital Signs Temp 98.0 F 05/30/22 07:38 Pulse 70 05/30/22 08:50 Resp 18 05/30/22 07:38 BP 121/69 05/30/22 07:38 Pulse Ox 91 L 05/30/22 07:38 FiO2 Intake & Output 05/29/22 05/30/22 05/30/22 18:59 06:59 18:59 Intake Total 350 Output Total 2300 1700 Balance -2300 -1350 Intake: Oral 350 Output: Urine 2300 1700 Other: Voiding Method Toilet # Bowel Movements 1 1 - Labs CBC & Chem 7: 05/28/22 01:34 05/28/22 01:34
[2022-05-30] MEDS ORDERED: FUROSEMIDE 40 MG TAB PO SCH (09:40)
[2022-05-30] MEDS: PANTOPRAZOLE 40 MG TABLET PO SCH (09:44)
[2022-05-30] MEDS: FERROUS SULFATE 325 MG TAB PO SCH (09:44)
[2022-05-30] MEDS: DULoxetine HCL 30 MG CAPSULE.DR PO SCH (09:44)
[2022-05-30] MEDS: GABAPENTIN 300 MG CAP PO SCH (09:44)
[2022-05-30] MEDS: FLUTICASONE 50MCG/SPRAY NASAL 16GM EA NOSTRIL SCH (09:45)
[2022-05-30] MEDS: APIXABAN 5 MG TAB PO SCH (09:45)
[2022-05-30] MEDS: TAMSULOSIN 0.4 MG CAP.ER.24H PO SCH (09:45)
[2022-05-30] MEDS: SPIRONOLACTONE 25 MG TAB PO SCH (09:45)
[2022-05-30] MEDS: CHOLECALCIFEROL 125 MCG (5000 IU) TABLET PO SCH (09:45)
[2022-05-30] MEDS: CEPHALEXIN 500 MG CAP PO SCH (09:45)
[2022-05-30] MEDS: HYDROcodone/APAP 7.5-325MG 1 EACH TAB PO PRN (09:52)
[2022-05-30] MEDS: BACLOFEN 10 MG TAB PO PRN (09:58)
[2022-05-30 10:04] LABS: African American GFR (CKD) 65.3 (60.0-200.0); Anion Gap 9.4 mmol/L (10.00-18.00); BUN/Creat Ratio 10.83 Ratio (12.00-20.00); Calcium 9.3 mg/dL (8.7-10.3); Carbon Dioxide 33.6 mmol/L (20.0-27.5); Non-African American GFR(CKD) 56.4 (60.0-200.0); Potassium 3.5 mmol/L (3.5-5.5)
[2022-05-30 10:51] VITALS: BP 123/75; RESP 16; TEMP 98.7
[2022-05-30] MEDS: FUROSEMIDE 10 MG/ML 4 ML VIAL IV SCH (11:02)
[2022-05-30 12:13] VITALS: PULSE 60
--- NOTE | 2022-06-02 06:55 | P.DS ---
Providers Date of admission: 05/28/22 03:12 Expected date of discharge: 05/30/22 Attending physician: Luca Pedraza Consults: 05/28/22 04:15 Consult Physician Urgent Consulting Provider: Damaso King Consult Reason/Comments: LE edema, SOB, elevated troponin Do you want consulting provider notified?: Yes, Notify in am Primary care physician: [facility] Course: Final diagnosis Shortness of breath, likely secondary to acute on chronic congestive heart failure exacerbation with reduced EF 45% Persistent atrial fibrillation history, currently rate controlled Concerns for right lower extremity cellulitis, suspicion is low is there is a scratch noted with no surrounding redness or drainage noted Hypertension Hyperlipidemia History of asthma/COPD, not in exacerbation Coronary artery disease History of myocardial infarction history of osteoarthritis GI prophylaxis DVT prophylaxis Full code Discharge disposition Patient is being discharged in a stable condition with guarded prognosis to home. Patient will follow-up with primary care provider in the outpatient setting upon discharge. Patient is to continue with oral Keflex 3 times daily for the next 5 days to complete the course. Patient to follow-up with cardiology outpatient as scheduled. Total time taken is greater than 35 minutes. Hospital course This is a 82-year-old male who was recently admitted with shortness of breath and sent here from [facility]. Patient was evaluated by cardiology in mild CHF exacerbation maintained on IV Lasix and diuresed well. Patient had some mild lower extremity swelling and would recommend compression stockings and elevating while at rest. Patient had a right nova scratch from his nail with some scabbing and initially with some redness surrounding concerns for cellulitis that has improved with diuresis as well as oral Keflex and will continue on Keflex 500 mg 3 times daily for the next 5 days to complete course. Patient has been cleared by cardiology and will follow-up with his word processing operator in the outpatient setting. Patient is to continue Lasix twice daily and will recommend repeat labs in next few days. Currently no reports of chest pain, shortness of breath, or palpitations. Patient is afebrile. No reports of nausea or vomiting and patient is tolerating diet. Patient will be discharged home today. Guarded prognosis Physical exam: Gen: This is a 82-year-old male who is awake, alert and oriented 3, hard of hearing, well-developed, well-nourished, obese HEENT: Head is atraumatic, normocephalic. Pupils equal, round. Sclerae is anicteric. NECK: Supple. No JVD. No lymphadenopathy. No thyromegaly. LUNGS: Clear to auscultation. No wheezes or rhonchi. No intercostal retractions. HEART: Regular rate and rhythm. No murmur. ABDOMEN: Soft. Bowel sounds are present. No masses. No tenderness. EXTREMITIES: No pedal edema. No calf tenderness. NEUROLOGICAL: Patient is awake, alert and oriented x3. Cranial nerves 2 through 12 are grossly intact. Please refer to medication reconciliation sheet for a list of medications. The impression and plan of care has been dictated by Kinjal Ballard, Nurse Practitioner as directed. Dr. Anthony MD I have performed a history and examination and MDM of this patient, discussed the same with the dictator, and agree with the dictator's assessment and plan as written ,documented as a scribe. Based on total visit time, I have performed more than 50% of the visit. Patient Condition at Discharge: Fair Plan - Discharge Summary New Discharge Prescriptions: New Cephalexin [Keflex] 500 mg PO Q8HR 5 Days #15 cap Continue Furosemide [Lasix] 40 mg PO BID Ferrous Sulfate [Iron (65 MG Elemental)] 325 mg PO BID Nitroglycerin Sl Tabs [Nitrostat] 0.4 mg SUBLINGUAL Q5M PRN PRN Reason: Chest Pain Baclofen [Lioresal] 10 mg PO TID PRN PRN Reason: Muscle Spasm Pravastatin Sodium [Pravachol] 40 mg PO HS Meclizine [Antivert] 25 mg PO TID PRN PRN Reason: DIZZINESS Gabapentin [Neurontin] 300 mg PO BID Hydrocodone/Acetaminophen [[place] 7.5-325] 1 tab PO BID PRN PRN Reason: Pain DULoxetine HCL [Cymbalta] 30 mg PO BID Apixaban [Eliquis] 5 mg PO BID #60 tab Pantoprazole [Protonix] 40 mg PO BID 30 Days #60 tablet. Tamsulosin [Flomax] 0.4 mg PO DAILY metOLazone 2.5 mg PO Q2D Spironolactone [Aldactone] 25 mg PO DAILY Potassium Chloride [Klor-Con M20] 20 meq PO QID Cholecalciferol [Vitamin D3 (125 Mcg = 5000 Iu)] 125 mcg PO DAILY Discharge Medication List Baclofen [Lioresal] 10 mg PO TID PRN 07/31/14 [History] Ferrous Sulfate [Iron (65 MG Elemental)] 325 mg PO BID 07/31/14 [History] Furosemide [Lasix] 40 mg PO BID 07/31/14 [History] Meclizine [Antivert] 25 mg PO TID PRN 07/31/14 [History] Nitroglycerin Sl Tabs [Nitrostat] 0.4 mg SUBLINGUAL Q5M PRN 07/31/14 [History] Pravastatin Sodium [Pravachol] 40 mg PO HS 07/31/14 [History] DULoxetine HCL [Cymbalta] 30 mg PO BID 08/18/19 [History] Gabapentin [Neurontin] 300 mg PO BID 08/18/19 [History] Hydrocodone/Acetaminophen [[place] 7.5-325] 1 tab PO BID PRN 08/18/19 [History] Apixaban [Eliquis] 5 mg PO BID #60 tab 08/19/19 [Rx] Pantoprazole [Protonix] 40 mg PO BID 30 Days #60 tablet. 08/22/19 [Rx] Cholecalciferol [Vitamin D3 (125 Mcg = 5000 Iu)] 125 mcg PO DAILY 05/28/22 [History] Potassium Chloride [Klor-Con M20] 20 meq PO QID 05/28/22 [History] Spironolactone [Aldactone] 25 mg PO DAILY 05/28/22 [History] Tamsulosin [Flomax] 0.4 mg PO DAILY 05/28/22 [History] metOLazone 2.5 mg PO Q2D 05/28/22 [History] Cephalexin [Keflex] 500 mg PO Q8HR 5 Days #15 cap 05/30/22 [Rx] Follow up Appointment(s)/Referral(s): Jacob Leyva MD [STAFF PHYSICIAN] - 1 Week None,Stated [REFERRING] - 1 Week (please follow up with your word processing operator. ) Activity/Diet/Wound Care/Special Instructions: Activity Limited until follow-up Follow-up with primary care provider on discharge Follow-up with cardiology outpatient Continue using compression stockings and would recommend over the knee and elevated while at rest Discharge Disposition: HOME SELF-CARE
== END 2022-05-30 13:30 | disposition home or self-care (01) | DRG 291 ==
LOC: EC 01:08 → 4SSUR 03:12 → OBSVTOIN 05-30 09:07 → UNDODISOB 05-30 13:30
PROVIDERS: ADMIT Hospitalist; ATTEND Hospitalist
DX: I11.0 Hypertensive heart disease with heart failure (principal); I50.43 Acute on chronic combined systolic (congestive) and diastolic (congestive) heart failure; J98.11 Atelectasis; L03.115 Cellulitis of right lower limb; I48.19 Other persistent atrial fibrillation; L03.116 Cellulitis of left lower limb; I42.9 Cardiomyopathy, unspecified; E78.5 Hyperlipidemia, unspecified; I08.3 Combined rheumatic disorders of mitral, aortic and tricuspid valves; J44.9 Chronic obstructive pulmonary disease, unspecified; I25.10 Atherosclerotic heart disease of native coronary artery without angina pectoris; I25.2 Old myocardial infarction; M19.90 Unspecified osteoarthritis, unspecified site; L40.9 Psoriasis, unspecified; I27.29 Other secondary pulmonary hypertension; I50.82 Biventricular heart failure; Z79.01 Long term (current) use of anticoagulants; Z79.82 Long term (current) use of aspirin; Z79.899 Other long term (current) drug therapy; Z95.5 Presence of coronary angioplasty implant and graft; Z96.643 Presence of artificial hip joint, bilateral; Z87.19 Personal history of other diseases of the digestive system; Z88.0 Allergy status to penicillin; Z88.8 Allergy status to other drugs, medicaments and biological substances; Z82.49 Family history of ischemic heart disease and other diseases of the circulatory system
CPT/HCPCS: 36415; 71045; 80048; 80053; 83880; 84145; 84484; 85025; 86140; 93005; 93306; 94640; 96374; 99285

== ENCOUNTER 2022-08-13 14:50 | Inpatient (IN) | payer MEDICARE, OTHER ==
[2022-08-13] MEDS ORDERED: MORPHINE SULFATE 4 MG/ML SYRINGE IV STA (15:32)
[2022-08-13 16:15] LABS: Basophils % (A) 0 %; Eosinophils # (A) 0.1 k/uL (0-0.7); Eosinophils % (A) 1 %; HCT 40.9 % (39.0-53.0); HGB 13.2 gm/dL (13.0-17.5); Lymphocytes # (A) 0.9 k/uL (1.0-4.8); Lymphocytes % (A) 8 %; MCH 29.6 pg (25.0-35.0); MCHC 32.3 g/dL (31.0-37.0); MCV 91.8 fL (80.0-100.0); Mean Platelet Volume 7.7; Monocytes # (A) 0.7 k/uL (0-1.0); Monocytes % (A) 6 %; Neutrophils # (A) 9.4 k/uL (1.3-7.7); Neutrophils % (A) 83 %; Platelet Count 219 k/uL (150-450); RBC 4.46 m/uL (4.30-5.90); RDW 14.8 % (11.5-15.5); WBC 11.3 k/uL (3.8-10.6)
[2022-08-13 16:24] LABS: Albumin 4.2 g/dL (3.5-5.0); Calcium 9.2 mg/dL (8.4-10.2); Potassium 3.7 mmol/L (3.5-5.1); Total Bilirubin 0.9 mg/dL (0.2-1.3); Total Protein 6.9 g/dL (6.3-8.2)
[2022-08-13 16:36] LABS: Appearance,Urine Clear (Clear); Bilirubin,Urine Negative (Negative); Blood,Urine Trace (Negative); Color,Urine Colorless; Glucose,Urine (UA) 3+ (Negative); Ketones,Urine Negative (Negative); Leukocyte Esterase,Urine Negative (Negative); Nitrite,Urine Negative (Negative); Protein,Urine Negative (Negative); RBC,Urine 5 /hpf (0-5); Specific Gravity,Urine 1.004 (1.001-1.035); Urobilinogen,Urine <2.0 mg/dL (<2.0); WBC,Urine <1 /hpf (0-5)
[2022-08-13] MEDS ORDERED: NALOXONE 0.4 MG/ML 1 ML VIAL IV PRN (18:07)
[2022-08-13] MEDS ORDERED: Acetaminophen-Codeine 300-30mg TAB PO PRN (18:07)
[2022-08-13] MEDS ORDERED: MAG HYDROX/AL HYDROX/SIMETH 30 ML CUP PO PRN (18:07)
[2022-08-13] MEDS ORDERED: BACLOFEN 10 MG TAB PO PRN (18:09)
[2022-08-13] MEDS ORDERED: SODIUM CHLORIDE 0.9% 1,000 ML IV SCH (18:15)
--- NOTE | 2022-08-13 18:17 | ED ---
Male Urogenital HPI - General Chief complaint: Urogenital Stated complaint: male Time Seen by Provider: 08/13/22 15:17 Source: patient Mode of arrival: EMS Limitations: no limitations - History of Present Illness Initial comments: This patient is an 82-year-old man sent here from [facility] to have evaluation for paraphimosis. The patient does have history of urinary retention and had been seeing the urologist local there, Dr. Gil. He states he was told that he needed to retract his foreskin and he did that approximately 2 weeks ago and then could not fully reduce it. He states that the swelling became very bad today and therefore he went to the other hospital. At the other facility they were not fully able to reduce the foreskin either. They applied a sugar water solution and wrapped his penis and sent him here to have evaluation. Here the patient also complains of suprapubic pain and inability to void.. No fever or chills. Denies systemic symptoms. MD Complaint: other -: week(s) Location: penis Radiation: none Severity: moderate Quality: aching Consistency: constant Improves with: none Worsens with: none Reports: denies other symptoms - Related Data Home Medications Medication Instructions Recorded Confirmed Ferrous Sulfate [Iron (65 MG 325 mg PO BID 07/31/14 08/13/22 Elemental)] Furosemide [Lasix] 40 mg PO BID 07/31/14 08/13/22 Meclizine [Antivert] 25 mg PO TID PRN 07/31/14 08/13/22 Nitroglycerin Sl Tabs [Nitrostat] 0.4 mg SL Q5M PRN 07/31/14 08/13/22 Pravastatin Sodium [Pravachol] 40 mg PO HS 07/31/14 08/13/22 DULoxetine HCL [Cymbalta] 30 mg PO BID 08/18/19 08/13/22 Gabapentin [Neurontin] 300 mg PO BID 08/18/19 08/13/22 Hydrocodone/Acetaminophen [[place] 1 tab PO BID PRN 08/18/19 08/13/22 7.5-325] Cholecalciferol [Vitamin D3 (125 125 mcg PO DAILY 05/28/22 08/13/22 Mcg = 5000 Iu)] Potassium Chloride [Klor-Con M20] 20 meq PO QID 05/28/22 08/13/22 Spironolactone [Aldactone] 25 mg PO DAILY 05/28/22 08/13/22 Tamsulosin [Flomax] 0.4 mg PO HS 05/28/22 08/13/22 metOLazone 2.5 mg PO Q2D 05/28/22 08/13/22 Dapagliflozin Propanediol [Farxiga] 10 mg PO DAILY 08/13/22 08/13/22 Primidone [Mysoline] 50 mg PO TID 08/13/22 08/13/22 Previous Rx's Medication Instructions Recorded Apixaban [Eliquis] 5 mg PO BID #60 tab 08/19/19 Pantoprazole [Protonix] 40 mg PO BID 30 Days #60 tablet. 08/22/19 Baclofen [Lioresal] 5 mg PO TID PRN #0 08/14/22 Allergies Allergy/AdvReac Type Severity Reaction Status Date / Time Penicillins Allergy Rash/Hives Verified 08/13/22 18:25 metoclopramide HCl AdvReac Hallucinati Verified 08/13/22 18:25 [From [facility]] ons Review of Systems ROS Statement: Those systems with pertinent positive or pertinent negative responses have been documented in the HPI. ROS Other: All systems not noted in ROS Statement are negative. Constitutional: Denies: fever, chills Respiratory: Denies: cough, dyspnea Cardiovascular: Denies: chest pain, palpitations, edema Gastrointestinal: Reports: as per HPI, abdominal pain. Denies: nausea, vomi ting, diarrhea Genitourinary: Reports: as per HPI, other (Urinary retension and penile edema.) Musculoskeletal: Denies: back pain Skin: Denies: rash Neurological: Denies: headache Past Medical History Past Medical History: Atrial Fibrillation, Asthma, Coronary Artery Disease (CAD), COPD, Hyperlipidemia, Hypertension, Myocardial Infarction ([place]), Osteoarthritis (OA), Prostate Disorder, Renal Disease, Skin Disorder Additional Past Medical History / Comment(s): psoriasis; shortness of breath with any strenuous activity; difficulty swallowing hx of foreign body removal from throat 4 times, "leaky heart valve"; stentsx2, bowel resection 30 years ago Last Myocardial Infarction Date:: 2003 History of Any Multi-Drug Resistant Organisms: None Reported Past Surgical History: Bowel Resection, Heart Catheterization With Stent, Hernia Repair, Orthopedic Surgery Additional Past Surgical History / Comment(s): ORIF of left forearm, portion of stomach removed in 1987 from an ulcer,EGD with dilatation. Bilateral hip replacements. Right Knee Past Anesthesia/Blood Transfusion Reactions: No Reported Reaction Date of Last Stent Placement:: 2003 Past Psychological History: No Psychological Hx Reported Past Alcohol Use History: None Reported Past Drug Use History: None Reported - Past Family History Mother Family Medical History: Coronary Artery Disease (CAD), Osteoarthritis (OA) Father Family Medical History: No Reported History Sister(s) Family Medical History: Cancer Additional Family Medical History / Comment(s): Breast and pacreas. General Exam Limitations: no limitations General appearance: alert, in no apparent distress Head exam: Present: atraumatic, normocephalic Eye exam: Present: normal appearance ENT exam: Present: normal oropharynx Neck exam: Present: normal inspection Respiratory exam: Present: normal lung sounds bilaterally. Absent: respiratory distress, wheezes, rales, rhonchi, stridor Cardiovascular Exam: Present: regular rate, normal rhythm, normal heart sounds. Absent: systolic murmur, diastolic murmur, rubs, gallop GI/Abdominal exam: Present: soft, tenderness, guarding, other (There is supra pubic fullness consistent with distended bladder). Absent: distended, rebound, rigid exam: Present: other (Patient has penile edema and there is a ligature brian around the penis consistent with tight paraphimosis) Extremities exam: Present: normal inspection, normal capillary refill. Absent: pedal edema, calf tenderness Back exam: Present: normal inspection. Absent: CVA tenderness (R), CVA tenderness (L) Neurological exam: Present: alert Skin exam: Present: warm, dry, intact, normal color. Absent: rash Course Vital Signs 08/13/22 08/13/22 08/13/22 14:57 18:08 21:18 Temperature 97.1 F L 97.2 F L Pulse Rate 82 63 74 Respiratory 20 20 18 Rate Blood Pressure 135/80 118/68 128/70 O2 Sat by Pulse 93 L 90 L 96 Oximetry 08/14/22 08/14/22 08/14/22 05:59 07:00 08:00 Temperature 97.9 F 98.1 F Pulse Rate 68 60 61 Respiratory 14 16 16 Rate Blood Pressure 111/57 113/71 120/69 O2 Sat by Pulse 95 98 98 Oximetry Medical Decision Making - Medical Decision Making 's patient is seen here I was unable to reduce the foreskin at the bedside. The patient did have Treadwell catheter placed which relieved his suprapubic disco mfort and fullness. We drained over 1 L of clear yellow urine. I did page Dr. Blackman, urology on-call who did come and see the patient and was not able to reduce the foreskin at the bedside either. In light of that he performed dorsal slit to relieve the pressure and requested that patient be admi tted. I discussed case with the [facility] on-call, as patient does not have primary physician in the system. Was pt. sent in by a medical professional or institution (, PA, CORRECTIONS OFFICER, urgent care, hospital, or halfway...) When possible be specific @ -[This, the patient transferred here from outside hospital Did you speak to anyone other than the patient for history (EMS, parent, family, police, friend...)? What history was obtained from this source @ -[I discussed in detail with the transferring physician Did you review nursing and triage notes (agree or disagree)? Why? @ -[I reviewed and agree with nursing and triage notes] Were old charts reviewed (outside hosp., previous admission, EMS record, old EKG, old radiological studies, urgent care reports/EKG's, halfway records)? Report findings @ -[Transfer chart was reviewed Differential Diagnosis (chest pain, altered mental status, abdominal pain women, abdominal pain men, vaginal bleeding, weakness, fever, dyspnea, syncope, headache, dizziness, GI bleed, back pain, seizure, CVA, palpatations, mental health, musculoskeletal)? @ -[Differential Abdominal Pain Men: Appendicitis, cholecystitis, diverticulosis, ischemic bowel, pancreatitis, hepatitis, UTI, gastroenteritis, AAA, incarcerated hernia, bowel obstruction, constipation, inflammatory bowel, hepatitis, peptic ulcer disease, splenic infarction, perforated viscus, testicular torsion, this is not meant to be an all-inclusive list EKG interpreted by me (3pts min.). @ -[None X-rays interpreted by me (1pt min.). @ -[None done] CT interpreted by me (1pt min.). @ -[None done] U/S interpreted by me (1pt. min.). @ -[None done] What testing was considered but not performed or refused? (CT, X-rays, U/S, labs)? Why? @ -[None] What meds were considered but not given or refused? Why? @ -[None] Did you discuss the management of the patient with other professionals (professionals i.e. , PA, CORRECTIONS OFFICER, lab, RT, psych nurse, mental health social worker, telephone clerks supervisor, teacher, police booking officer, employment evaluator/case manager)? Give summary @ -[I discussed the case with the urologist on-call and with the admitting physician Was smoking cessation discussed for >3mins.? @ -[No] Was critical care preformed (if so, how long)? @ -[No] Were there social determinants of health that impacted care today? How? (Homelessness, low income, unemployed, alcoholism, drug addiction, transportation, low edu. Level, literacy, decrease access to med. care, assisted, rehab)? @ -[No] Was there de-escalation of care discussed even if they declined (Discuss DNR or withdrawal of care, Hospice)? DNR status @ -[No] What co-morbidities impacted this encounter? (DM, HTN, Smoking, COPD, CAD, Cancer, CVA, ARF, Chemo, Hep., AIDS, mental health diagnosis, sleep apnea, morbid obesity)? @ -[None] Was patient admitted / discharged? Hospital course, mention meds given and route, prescriptions, significant lab abnormalities, going to OR and other pertinent info. @ -[Admitted Undiagnosed new problem with uncertain prognosis? @ -[No] Drug Therapy requiring intensive monitoring for toxicity (Heparin, Nitro, Insulin, Cardizem)? @ -[No] Were any procedures done? @ -[Procedure by urologist, as above Diagnosis/symptom? @ -[Acute urinary retention Acute paraphimosis Acute, or Chronic, or Acute on Chronic? @ -[default] Uncomplicated (without systemic symptoms) or Complicated (systemic symptoms)? @ -[Uncomplicated Side effects of treatment? @ -[No] Exacerbation, Progression, or Severe Exacerbation? @ -[No] Poses a threat to life or bodily function? How? (Chest pain, [place], MA, pneumonia, PE, COPD, DKA, ARF, appy, cholecystitis, CVA, Diverticulitis, Homicidal, Suicidal, threat to staff... and all critical care pts) @ -[Paraphimosis does represent a threat to the penile integrity if not promptly dealt with - Lab Data Result diagrams: 08/13/22 15:55 08/13/22 15:55 Lab Results 08/13/22 08/13/22 08/13/22 Range/Units 15:55 15:55 16:06 WBC 11.3 H (3.8-10.6) k/uL RBC 4.46 (4.30-5.90) m/uL Hgb 13.2 (13.0-17.5) gm/dL Hct 40.9 (39.0-53.0) % MCV 91.8 (80.0-100.0) fL MCH 29.6 (25.0-35.0) pg MCHC 32.3 (31.0-37.0) g/dL RDW 14.8 (11.5-15.5) % Plt Count 219 (150-450) k/uL MPV 7.7 Neutrophils % 83 % Lymphocytes % 8 % Monocytes % 6 % Eosinophils % 1 % Basophils % 0 % Neutrophils # 9.4 H (1.3-7.7) k/uL Lymphocytes # 0.9 L (1.0-4.8) k/uL Monocytes # 0.7 (0-1.0) k/uL Eosinophils # 0.1 (0-0.7) k/uL Basophils # 0.0 (0-0.2) k/uL Sodium 134 L (137-145) mmol/L Potassium 3.7 (3.5-5.1) mmol/L Chloride 91 L (98-107) mmol/L Carbon Dioxide 33 H (22-30) mmol/L Anion Gap 10 mmol/L BUN 14 (9-20) mg/dL Creatinine 0.99 (0.66-1.25) mg/dL Est GFR (CKD-EPI)AfAm 82 (>60 ml/min/1.73 sqM) Est GFR (CKD-EPI)NonAf 71 (>60 ml/min/1.73 sqM) Glucose 111 H (74-99) mg/dL Calcium 9.2 (8.4-10.2) mg/dL Total Bilirubin 0.9 (0.2-1.3) mg/dL AST 24 (17-59) U/L ALT 16 (4-49) U/L Alkaline Phosphatase 78 (38-126) U/L Total Protein 6.9 (6.3-8.2) g/dL Albumin 4.2 (3.5-5.0) g/dL Urine Color Colorless Urine Appearance Clear (Clear) Urine pH 7.0 (5.0-8.0) Ur Specific [place] 1.004 (1.001-1.035) Urine Protein Negative (Negative) Urine Glucose (UA) 3+ H (Negative) Urine Ketones Negative (Negative) Urine Blood Trace H (Negative) Urine Nitrite Negative (Negative) Urine Bilirubin Negative (Negative) Urine Urobilinogen <2.0 (<2.0) mg/dL Ur Leukocyte Esterase Negative (Negative) Urine RBC 5 (0-5) /hpf Urine WBC <1 (0-5) /hpf Disposition Clinical Impression: Paraphimosis, Urinary retention Disposition[facility] Condition: Stable Is patient prescribed a controlled substance at d/c from ED?: No
[2022-08-13] MEDS: MORPHINE SULFATE 4 MG/ML SYRINGE IV PRN (18:30)
[2022-08-13] MEDS: PANTOPRAZOLE 40 MG TABLET PO SCH (18:38)
--- NOTE | 2022-08-13 18:48 | P.GSCN ---
History of Present Illness Consult date: 08/13/22 History of present illness: 82 yo male transferred from [place] because of urianry difficulties and paraphimosis. The patient was having problems urianting and contacted his urologist. He states he was told to retract his foreskin to void. He did that but never pulled it back over the head of his penis. It has been that way for two weeks. He was seen here with a marked swollen, paraphimotic penis. A catheter was placed as he was in retention. i was asked to see for the paraphimosis. His urologist is out town Review of Systems All systems: negative - Constitutional Denies fever, Denies weight loss - EENT Eyes: denies blurred vision Ears, nose, mouth and throat: Denies dysphagia - Cardiovascular Denies chest pain, Denies shortness of breath - Respiratory Denies cough, Denies 7 - Gastrointestinal Reports as per HPI - Genitourinary Denies dysuria, Denies hematuria - Integumentary Denies rash, Denies unusual bruising - Neurological Denies headaches, Denies syncope - Hematologic/Lymphatic Denies easy bleeding, Denies easy bruising Past Medical History Past Medical History: Atrial Fibrillation, Asthma, Coronary Artery Disease (CAD), COPD, Hyperlipidemia, Hypertension, Myocardial Infarction ([place]), Osteoarthritis (OA), Prostate Disorder, Renal Disease, Skin Disorder Additional Past Medical History / Comment(s): psoriasis; shortness of breath with any strenuous activity; difficulty swallowing hx of foreign body removal from throat 4 times, "leaky heart valve"; stentsx2, bowel resection 30 years ago Last Myocardial Infarction Date:: 2003 History of Any Multi-Drug Resistant Organisms: None Reported Past Surgical History: Bowel Resection, Heart Catheterization With Stent, Hernia Repair, Orthopedic Surgery Additional Past Surgical History / Comment(s): ORIF of left forearm, portion of stomach removed in 1987 from an ulcer,EGD with dilatation. Bilateral hip replac ements. Right Knee Past Anesthesia/Blood Transfusion Reactions: No Reported Reaction Date of Last Stent Placement:: 2003 Past Psychological History: No Psychological Hx Reported Past Alcohol Use History: None Reported Past Drug Use History: None Reported - Past Family History Mother Family Medical History: Coronary Artery Disease (CAD), Osteoarthritis (OA) Father Family Medical History: No Reported History Medications and Allergies Home Medications Medication Instructions Recorded Confirmed Type Baclofen [Lioresal] 10 mg PO TID PRN 07/31/14 08/13/22 History Ferrous Sulfate [Iron (65 MG 325 mg PO BID 07/31/14 08/13/22 History Elemental)] Furosemide [Lasix] 40 mg PO BID 07/31/14 08/13/22 History Meclizine [Antivert] 25 mg PO TID PRN 07/31/14 08/13/22 History Nitroglycerin Sl Tabs [Nitrostat] 0.4 mg SL Q5M PRN 07/31/14 08/13/22 History Pravastatin Sodium [Pravachol] 40 mg PO HS 07/31/14 08/13/22 History DULoxetine HCL [Cymbalta] 30 mg PO BID 08/18/19 08/13/22 History Gabapentin [Neurontin] 300 mg PO BID 08/18/19 08/13/22 History Hydrocodone/Acetaminophen [[place] 1 tab PO BID PRN 08/18/19 08/13/22 History 7.5-325] Apixaban [Eliquis] 5 mg PO BID #60 tab 08/19/19 08/13/22 Rx Pantoprazole [Protonix] 40 mg PO BID 30 Days #60 tablet. 08/22/19 08/13/22 Rx Cholecalciferol [Vitamin D3 (125 125 mcg PO DAILY 05/28/22 08/13/22 History Mcg = 5000 Iu)] Potassium Chloride [Klor-Con M20] 20 meq PO QID 05/28/22 08/13/22 History Spironolactone [Aldactone] 25 mg PO DAILY 05/28/22 08/13/22 History Tamsulosin [Flomax] 0.4 mg PO HS 05/28/22 08/13/22 History metOLazone 2.5 mg PO Q2D 05/28/22 08/13/22 History Dapagliflozin Propanediol [Farxiga] 10 mg PO DAILY 08/13/22 08/13/22 History Primidone [Mysoline] 50 mg PO TID 08/13/22 08/13/22 History Allergies Allergy/AdvReac Type Severity Reaction Status Date / Time Penicillins Allergy Rash/Hives Verified 08/13/22 18:25 metoclopramide HCl AdvReac Hallucinati Verified 08/13/22 18:25 [From [facility]] ons Surgical - Exam Vital Signs Temp Pulse Resp BP Pulse Ox 97.1 F L 82 20 135/80 93 L 08/13/22 14:57 08/13/22 14:57 08/13/22 14:57 08/13/22 14:57 08/13/22 14:57 - General well developed, well nourished, no distress - Eyes normal ocular movement, no icteric - ENT no hearing loss, no congestion - Neck no masses, trachea midline - Respiratory normal respiratory effort, clear to auscultation - Abdomen Abdomen: soft, non tender, no guarding, no rigid, no rebound - Genitourinary indwelling catheter with clear urine. Paraphimosis with marked edema of foreskin and penile head. There is bleeding and cyanosis of the forskin subcoronaly - Integumentary no rash, no abnormal pigmentation - Neurologic no disoriented, no combative - Psychiatric oriented to time, oriented to person, oriented to place, speech is normal, memory intact Results - Labs 08/13/22 15:55 08/13/22 15:55 Abnormal Lab Results - Last 24 Hours (Table) 08/13/22 08/13/22 08/13/22 Range/Units 15:55 15:55 16:06 WBC 11.3 H (3.8-10.6) k/uL Neutrophils # 9.4 H (1.3-7.7) k/uL Lymphocytes # 0.9 L (1.0-4.8) k/uL Sodium 134 L (137-145) mmol/L Chloride 91 L (98-107) mmol/L Carbon Dioxide 33 H (22-30) mmol/L Glucose 111 H (74-99) mg/dL Urine Glucose (UA) 3+ H (Negative) Urine Blood Trace H (Negative) Diabetes panel 08/13/22 Range/Units 15:55 Sodium 134 L (137-145) mmol/L Potassium 3.7 (3.5-5.1) mmol/L Chloride 91 L (98-107) mmol/L Carbon Dioxide 33 H (22-30) mmol/L BUN 14 (9-20) mg/dL Creatinine 0.99 (0.66-1.25) mg/dL Glucose 111 H (74-99) mg/dL Calcium 9.2 (8.4-10.2) mg/dL AST 24 (17-59) U/L ALT 16 (4-49) U/L Alkaline Phosphatase 78 (38-126) U/L Total Protein 6.9 (6.3-8.2) g/dL Albumin 4.2 (3.5-5.0) g/dL Calcium panel 08/13/22 Range/Units 15:55 Calcium 9.2 (8.4-10.2) mg/dL Albumin 4.2 (3.5-5.0) g/dL Pituitary panel 08/13/22 Range/Units 15:55 Sodium 134 L (137-145) mmol/L Potassium 3.7 (3.5-5.1) mmol/L Chloride 91 L (98-107) mmol/L Carbon Dioxide 33 H (22-30) mmol/L BUN 14 (9-20) mg/dL Creatinine 0.99 (0.66-1.25) mg/dL Glucose 111 H (74-99) mg/dL Calcium 9.2 (8.4-10.2) mg/dL Adrenal panel 08/13/22 Range/Units 15:55 Sodium 134 L (137-145) mmol/L Potassium 3.7 (3.5-5.1) mmol/L Chloride 91 L (98-107) mmol/L Carbon Dioxide 33 H (22-30) mmol/L BUN 14 (9-20) mg/dL Creatinine 0.99 (0.66-1.25) mg/dL Glucose 111 H (74-99) mg/dL Calcium 9.2 (8.4-10.2) mg/dL Total Bilirubin 0.9 (0.2-1.3) mg/dL AST 24 (17-59) U/L ALT 16 (4-49) U/L Alkaline Phosphatase 78 (38-126) U/L Total Protein 6.9 (6.3-8.2) g/dL Albumin 4.2 (3.5-5.0) g/dL Assessment and Plan Assessment: Impression: Paraphimosis, severe. Urine retention. Multiple medical illnesses Plan: catheter. attempt phimosis reduction.
--- NOTE | 2022-08-13 18:55 | P.PCN ---
Date of Procedure: 08/13/22 Preoperative Diagnosis: paraphimosis Postoperative Diagnosis: same Procedure(s) Performed: failed manual reduction of paraphimosis, dorsal slit Anesthesia: local Surgeon: Isaias Blackman Estimated Blood Loss (ml): 25 Pathology: none sent Condition: stable Disposition: floor Indications for Procedure: the patient has had a paraphimosis for greater than two weeks.. He has marked penile edema, cyanosis of foreskin and penile head. Description of Procedure: A catheter has already been placed. I attempt to manually reduce the paraphimosis but fail. I then do a penile block with 20 ml of 1% lidocaine plain. I then again attempt to manually reduce the paraphimosis but fail. I then cleanse the penis and use a hemostat to clamp the penis I eventually do a modified doral slit taking the incision thru the constricted area to relieve the tight phimosis. I then reapproximate the edges with 4-0 vicryl The cyanosis has been corrected. Due to the duration of the paraphimosis the edema will persist for a while The patient tolerated the procedure well
[2022-08-13] MEDS: FUROSEMIDE 40 MG TAB PO SCH (19:22)
[2022-08-13] MEDS ORDERED: PRAVASTATIN SODIUM 40 MG TAB PO SCH (21:00)
[2022-08-13] MEDS: APIXABAN 5 MG TAB PO SCH (21:11)
[2022-08-13] MEDS: HYDROcodone/APAP 7.5-325MG 1 EACH TAB PO PRN (21:16)
[2022-08-14] MEDS: HYDROcodone/APAP 7.5-325MG 1 EACH TAB PO PRN (05:07)
[2022-08-14 07:22] VITALS: RESP 16
--- NOTE | 2022-08-14 07:51 | P.PN ---
Subjective Progress Note Date: 08/14/22 The patient is in the hospital for urine retention and paraphimosis upon transfer from [place]. He feels better this morning after I surgically released is paraphimosis yesterday. His catheter is draining clear urine. Objective - Vital Signs Vital signs: Vital Signs Temp 97.9 F 08/14/22 07:00 Pulse 60 08/14/22 07:00 Resp 16 08/14/22 07:00 BP 113/71 08/14/22 07:00 Pulse Ox 98 08/14/22 07:00 FiO2 Intake & Output 08/13/22 08/14/22 08/14/22 18:59 06:59 18:59 Output Total 980 Balance -980 Weight 88.904 kg Output: Urine 980 Uretheral (Treadwell) 980 - Genitourinary Genitourinary Comment(s): Indwelling catheter, clear urine. Decreased edema of the foreskin. Surgical incision from release of the paraphimosis is dry. - Labs CBC & Chem 7: 08/13/22 15:55 08/13/22 15:55 Labs: Abnormal Lab Results - Last 24 Hours (Table) 08/13/22 08/13/22 08/13/22 Range/Units 15:55 15:55 16:06 WBC 11.3 H (3.8-10.6) k/uL Neutrophils # 9.4 H (1.3-7.7) k/uL Lymphocytes # 0.9 L (1.0-4.8) k/uL Sodium 134 L (137-145) mmol/L Chloride 91 L (98-107) mmol/L Carbon Dioxide 33 H (22-30) mmol/L Glucose 111 H (74-99) mg/dL Urine Glucose (UA) 3+ H (Negative) Urine Blood Trace H (Negative) Assessment and Plan Assessment: Impression: Paraphimosis treated surgically. Urine retention on Flomax. Recommendations: From a urologic standpoint he can be discharged. He should follow up either here or with his urologist in [place], Dr. Gil. He should go home with a Treadwell and Flomax. A voiding trial can be done as an outpatient.
[2022-08-14] MEDS: PANTOPRAZOLE 40 MG TABLET PO SCH (07:53)
[2022-08-14] MEDS ORDERED: SPIRONOLACTONE 25 MG TAB PO SCH (09:00)
[2022-08-14] MEDS ORDERED: TAMSULOSIN 0.4 MG CAP.ER.24H PO SCH (09:00)
[2022-08-14] MEDS ORDERED: CHOLECALCIFEROL 125 MCG (5000 IU) TABLET PO SCH (09:00)
[2022-08-14] MEDS: FUROSEMIDE 40 MG TAB PO SCH ×2 (09:48→15:58)
[2022-08-14] MEDS: APIXABAN 5 MG TAB PO SCH (09:48)
[2022-08-14] MEDS: MORPHINE SULFATE 4 MG/ML SYRINGE IV PRN (09:50)
[2022-08-14] MEDS ORDERED: NITROGLYCERIN SL TABS 0.4 MG TAB SUBLINGUAL PRN (12:11)
[2022-08-14 12:53] VITALS: BP 99/55; PULSE 62; TEMP 98.9
[2022-08-14] MEDS ORDERED: POTASSIUM CHLORIDE ER 20 MEQ TAB.ER PO STA (12:59)
[2022-08-14] MEDS ORDERED: POTASSIUM CHLORIDE ER 20 MEQ TAB.ER PO SCH (13:00)
--- NOTE | 2022-08-14 13:06 | P.HPIM ---
History of Present Illness Patient is pleasant 82-year-old male was transferred from outside hospital for urinary retention related to paraphimosis and patient underwent surgical release of paraphimosis yesterday and is clear draining clear urine and patient p resently has a Treadwell catheter. Patient is clinically doing well but does have multiple other chronic medical problems include congestive heart failure chronic systolic dysfunction with EF of around 40-45% and diastolic dysfunction and is on multiple diuretics with mild hyponatremia and hypochloremia. Patient is a mild leukocytosis but no evidence of infection. REVIEW OF SYSTEMS: CONSTITUTIONAL: No fever, no malaise, no fatigue. HEENT: No recent visual problems or hearing problems. Denied any sore throat. CARDIOVASCULAR: No chest pain, orthopnea, PND, no palpitations, no syncope. PULMONARY: No shortness of breath, no cough, no hemoptysis. GASTROINTESTINAL: No diarrhea, no nausea, no vomiting, no abdominal pain. NEUROLOGICAL: No headaches, no weakness, no numbness. HEMATOLOGICAL: Denies any bleeding or petechiae. GENITOURINARY: Denies any burning micturition, frequency, or urgency. MUSCULOSKELETAL/RHEUMATOLOGICAL: Denies any joint pain, swelling, or any muscle pain. ENDOCRINE: Denies any polyuria or polydipsia. The rest of the 14-point review of systems is negative. PHYSICAL EXAMINATION: GENERAL: The patient is alert and oriented x3, not in any acute distress. Well developed, well nourished. HEENT: Pupils are round and equally reacting to light. EOMI. No scleral icterus. No conjunctival pallor. Normocephalic, atraumatic. No pharyngeal erythema. No thyromegaly. CARDIOVASCULAR: S1 and S2 present. No murmurs, rubs, or gallops. PULMONARY: Chest is clear to auscultation, no wheezing or crackles. ABDOMEN: Soft, nontender, nondistended, normoactive bowel sounds. No palpable organomegaly. MUSCULOSKELETAL: No joint swelling or deformity. EXTREMITIES: No cyanosis, clubbing, or pedal edema. NEUROLOGICAL: Gross neurological examination did not reveal any focal deficits. SKIN: No rashes. Assessment and plan -Paraphimosis leading to urinary retention: Status post surgical intervention patient has a Treadwell catheter. Hypertension failure chronic systolic as was diastolic dysfunction without any acute exacerbation in spite of his mild hypovolemia. Still continue his diuretics as as it is after holding one dose of diuretics here at the hospital. Will need repeat basic metabolic profile and close follow-up with PCP as an outpatient and titration of his diuretics as outpatient by his PCP and police aide. Next - leukocytosis secondary to paraphimosis no evidence of UTI -History of atrial fibrillation paroxysmal presently rate controlled patient is on anticoagulation which will be continued -Coronary artery disease -COPD -coronary artery disease with cardiac catheterization and stenting in the past DVT prophylaxis: is on anticoagulation which will be continued Past Medical History Past Medical History: Atrial Fibrillation, Coronary Artery Disease (CAD), COPD, Osteoarthritis (OA), Prostate Disorder, Renal Disease Additional Past Medical History / Comment(s): shortness of breath with any strenuous activity; difficulty swallowing , "leaky heart valve"; abdominal Her charlie Last Myocardial Infarction Date:: 2003 History of Any Multi-Drug Resistant Organisms: None Reported Past Surgical History: Heart Catheterization With Stent, Orthopedic Surgery Additional Past Surgical History / Comment(s): ORIF of left forearm, portion of stomach removed in 1987 from an ulcer,EGD with dilatation. Bilateral hip replacements. Right Knee, stentsx2, foreign body removal from throat 3 times. Heart stent with clip Past Anesthesia/Blood Transfusion Reactions: No Reported Reaction Date of Last Stent Placement:: 2003 Past Psychological History: No Psychological Hx Reported Smoking Status: Former smoker Past Alcohol Use History: None Reported Additional Past Alcohol Use History / Comment(s): 1ppd Past Drug Use History: None Reported - Past Family History Mother Family Medical History: Coronary Artery Disease (CAD), Osteoarthritis (OA) Father Family Medical History: Cancer Additional Family Medical History / Comment(s): Pancreas Sister(s) Family Medical History: Cancer Additional Family Medical History / Comment(s): Breast and pacreas. Medications and Allergies Home Medications Medication Instructions Recorded Confirmed Type Ferrous Sulfate [Iron (65 MG 325 mg PO BID 07/31/14 08/13/22 History Elemental)] Furosemide [Lasix] 40 mg PO BID 07/31/14 08/13/22 History Meclizine [Antivert] 25 mg PO TID PRN 07/31/14 08/13/22 History Nitroglycerin Sl Tabs [Nitrostat] 0.4 mg SL Q5M PRN 07/31/14 08/13/22 History Pravastatin Sodium [Pravachol] 40 mg PO HS 07/31/14 08/13/22 History DULoxetine HCL [Cymbalta] 30 mg PO BID 08/18/19 08/13/22 History Gabapentin [Neurontin] 300 mg PO BID 08/18/19 08/13/22 History Hydrocodone/Acetaminophen [[place] 1 tab PO BID PRN 08/18/19 08/13/22 History 7.5-325] Apixaban [Eliquis] 5 mg PO BID #60 tab 08/19/19 08/13/22 Rx Pantoprazole [Protonix] 40 mg PO BID 30 Days #60 tablet. 08/22/19 08/13/22 Rx Cholecalciferol [Vitamin D3 (125 125 mcg PO DAILY 05/28/22 08/13/22 History Mcg = 5000 Iu)] Potassium Chloride [Klor-Con M20] 20 meq PO QID 05/28/22 08/13/22 History Spironolactone [Aldactone] 25 mg PO DAILY 05/28/22 08/13/22 History Tamsulosin [Flomax] 0.4 mg PO HS 05/28/22 08/13/22 History metOLazone 2.5 mg PO Q2D 05/28/22 08/13/22 History Dapagliflozin Propanediol [Farxiga] 10 mg PO DAILY 08/13/22 08/13/22 History Primidone [Mysoline] 50 mg PO TID 08/13/22 08/13/22 History Baclofen [Lioresal] 5 mg PO TID PRN #0 08/14/22 08/13/22 Rx Allergies Allergy/AdvReac Type Severity Reaction Status Date / Time Penicillins Allergy Rash/Hives Verified 08/13/22 18:25 metoclopramide HCl AdvReac Hallucinati Verified 08/13/22 18:25 [From [facility]] ons Physical Exam Vitals: Vital Signs Temp Pulse Pulse Resp BP BP BP 08/14/22 12:31 98.9 F 62 16 98/51 99/55 08/14/22 09:07 98.6 F 62 16 111/63 08/14/22 08:40 08/14/22 08:00 98.1 F 61 16 120/69 08/14/22 07:00 97.9 F 60 16 113/71 08/14/22 05:59 68 14 111/57 08/13/22 21:18 74 18 128/70 08/13/22 18:08 97.2 F L 63 20 118/68 08/13/22 14:57 97.1 F L 82 20 135/80 Pulse Ox 08/14/22 12:31 95 08/14/22 09:07 98 08/14/22 08:40 97 08/14/22 08:00 98 08/14/22 07:00 98 08/14/22 05:59 95 08/13/22 21:18 96 08/13/22 18:08 90 L 08/13/22 14:57 93 L Intake and Output 08/13/22 08/14/22 08/14/22 22:59 06:59 14:59 Output Total 980 675 Balance -980 -675 Output: Urine 980 675 Uretheral (Treadwell) 980 Other: Weight 88.9 kg Results CBC & Chem 7: 08/13/22 15:55 08/13/22 15:55 Labs: Abnormal Lab Results - Last 24 Hours (Table) 08/13/22 08/13/22 08/13/22 Range/Units 15:55 15:55 16:06 WBC 11.3 H (3.8-10.6) k/uL Neutrophils # 9.4 H (1.3-7.7) k/uL Lymphocytes # 0.9 L (1.0-4.8) k/uL Sodium 134 L (137-145) mmol/L Chloride 91 L (98-107) mmol/L Carbon Dioxide 33 H (22-30) mmol/L Glucose 111 H (74-99) mg/dL Urine Glucose (UA) 3+ H (Negative) Urine Blood Trace H (Negative) Thrombosis Risk Factor Assmnt - Choose All That Apply Each Factor Represents 1 point: Abnormal pulmonary function (COPD) Other Risk Factors: No Each Risk Factor Represents 3 Points: Age 75 years or older Thrombosis Risk Factor Assessment Total Risk Factor Score: 4 Thrombosis Risk Factor Assessment Level: Moderate Risk
--- NOTE | 2022-08-14 13:06 | P.DS ---
Providers Date of admission: 08/13/22 18:07 Attending physician: Luca Pedraza Consults: 08/13/22 18:07 Consult Physician Urgent Consulting Provider: Isaias Blackman Consult Reason/Comments: paraphimosis Do you want consulting provider notified?: Already Contacted Primary care physician: Luz Zhou MD Hospital Course: Refer to history of present illness for further details Patient Condition at Discharge: Fair Plan - Discharge Summary Discharge Rx Participant: No New Discharge Prescriptions: Continue Furosemide [Lasix] 40 mg PO BID Ferrous Sulfate [Iron (65 MG Elemental)] 325 mg PO BID Nitroglycerin Sl Tabs [Nitrostat] 0.4 mg SL Q5M PRN PRN Reason: Chest Pain Pravastatin Sodium [Pravachol] 40 mg PO HS Meclizine [Antivert] 25 mg PO TID PRN PRN Reason: DIZZINESS Gabapentin [Neurontin] 300 mg PO BID Hydrocodone/Acetaminophen [[place] 7.5-325] 1 tab PO BID PRN PRN Reason: Pain DULoxetine HCL [Cymbalta] 30 mg PO BID Apixaban [Eliquis] 5 mg PO BID #60 tab Pantoprazole [Protonix] 40 mg PO BID 30 Days #60 tablet. Tamsulosin [Flomax] 0.4 mg PO HS metOLazone 2.5 mg PO Q2D Spironolactone [Aldactone] 25 mg PO DAILY Potassium Chloride [Klor-Con M20] 20 meq PO QID Dapagliflozin Propanediol [Farxiga] 10 mg PO DAILY Cholecalciferol [Vitamin D3 (125 Mcg = 5000 Iu)] 125 mcg PO DAILY Primidone [Mysoline] 50 mg PO TID Changed Baclofen [Lioresal] 5 mg PO TID PRN #0 PRN Reason: Muscle Spasm Discharge Medication List Ferrous Sulfate [Iron (65 MG Elemental)] 325 mg PO BID 07/31/14 [History] Furosemide [Lasix] 40 mg PO BID 07/31/14 [History] Meclizine [Antivert] 25 mg PO TID PRN 07/31/14 [History] Nitroglycerin Sl Tabs [Nitrostat] 0.4 mg SL Q5M PRN 07/31/14 [History] Pravastatin Sodium [Pravachol] 40 mg PO HS 07/31/14 [History] DULoxetine HCL [Cymbalta] 30 mg PO BID 08/18/19 [History] Gabapentin [Neurontin] 300 mg PO BID 08/18/19 [History] Hydrocodone/Acetaminophen [[place] 7.5-325] 1 tab PO BID PRN 08/18/19 [History] Apixaban [Eliquis] 5 mg PO BID #60 tab 08/19/19 [Rx] Pantoprazole [Protonix] 40 mg PO BID 30 Days #60 tablet. 08/22/19 [Rx] Cholecalciferol [Vitamin D3 (125 Mcg = 5000 Iu)] 125 mcg PO DAILY 05/28/22 [History] Potassium Chloride [Klor-Con M20] 20 meq PO QID 05/28/22 [History] Spironolactone [Aldactone] 25 mg PO DAILY 05/28/22 [History] Tamsulosin [Flomax] 0.4 mg PO HS 05/28/22 [History] metOLazone 2.5 mg PO Q2D 05/28/22 [History] Dapagliflozin Propanediol [Farxiga] 10 mg PO DAILY 08/13/22 [History] Primidone [Mysoline] 50 mg PO TID 08/13/22 [History] Baclofen [Lioresal] 5 mg PO TID PRN #0 08/14/22 [Rx] Follow up Appointment(s)/Referral(s): Luz Zhou MD [Primary Care Provider] - 3 Days Discharge Disposition: HOME WITH HOME HEALTH SERVICES
[2022-08-14] MEDS ORDERED: PRIMIDONE 50 MG TAB PO SCH (16:00)
[2022-08-14] MEDS ORDERED: GABAPENTIN 300 MG CAP PO SCH (21:00)
[2022-08-14] MEDS ORDERED: DULoxetine HCL 30 MG CAPSULE.DR PO SCH (21:00)
[2022-08-15] MEDS ORDERED: DAPAGLIFLOZIN PROPANEDIOL 10 MG TABLET PO SCH (09:00)
== END 2022-08-14 17:07 | disposition home or self-care (01) | DRG 728 ==
LOC: EC 14:50 → 5NMEDONC 18:07
PROVIDERS: ADMIT Hospitalist; ATTEND Hospitalist
PROC: 0VTTXZZ Resection of Prepuce, External Approach (ICD-10-PCS; principal; 2022-08-13)
DX: N47.2 Paraphimosis (principal); E87.1 Hypo-osmolality and hyponatremia; I50.42 Chronic combined systolic (congestive) and diastolic (congestive) heart failure; I11.0 Hypertensive heart disease with heart failure; R33.8 Other retention of urine; I25.10 Atherosclerotic heart disease of native coronary artery without angina pectoris; J44.9 Chronic obstructive pulmonary disease, unspecified; Z79.01 Long term (current) use of anticoagulants; T50.2X5A Adverse effect of carbonic-anhydrase inhibitors, benzothiadiazides and other diuretics, initial encounter; N48.89 Other specified disorders of penis; J45.909 Unspecified asthma, uncomplicated; I48.0 Paroxysmal atrial fibrillation; I25.2 Old myocardial infarction; D72.829 Elevated white blood cell count, unspecified; E78.5 Hyperlipidemia, unspecified; L40.9 Psoriasis, unspecified; M19.90 Unspecified osteoarthritis, unspecified site; E87.8 Other disorders of electrolyte and fluid balance, not elsewhere classified; Z82.49 Family history of ischemic heart disease and other diseases of the circulatory system; Z79.899 Other long term (current) drug therapy; Z87.891 Personal history of nicotine dependence; Z95.5 Presence of coronary angioplasty implant and graft; Z96.643 Presence of artificial hip joint, bilateral; Z79.84 Long term (current) use of oral hypoglycemic drugs; X58.XXXA Exposure to other specified factors, initial encounter; Z87.19 Personal history of other diseases of the digestive system; Z88.0 Allergy status to penicillin; Z88.8 Allergy status to other drugs, medicaments and biological substances
CPT/HCPCS: 36415; 80053; 81001; 85025; 94760; 96361; 96365; 96375; 96376; 99285